=== PATIENT | female | born 1950 | race Caucasian/White ===

== ENCOUNTER 2020-06-12 14:45 | Outpatient (REF) | payer MEDICARE, SELFPAY ==
--- NOTE | 2020-06-12 15:19 | XR_ITS ---
EXAMINATION: XR CHEST CLINICAL INFORMATION: Pneumonia. COMPARISON: Chest x-ray 05/11/2020 TECHNIQUE: 2 views of the chest were obtained. FINDINGS: Lungs are clear. There is normal aeration of lungs. The infiltrate seen in the right lung on the chest x-ray 05/11/2020 has resolved. There is no new infiltrate. No pulmonary vascular congestion. There is no pleural effusion. Heart size is normal. The cardiac and mediastinal contours are normal. Orthopedic anchors present in the left humeral head. Postsurgical changes of the lower cervical spine is partially imaged. Surgical clips right upper quadrant of abdomen. IMPRESSION: Normal chest. Interval clearing of the previously seen infiltrate and the left basilar atelectasis which was present on the prior chest x-ray 05/11/2020
[2020-06-12 15:53] LABS: Estimated Average Glucose 134 mg/dL; Hemoglobin A1c % 6.3 %
[2020-06-12 16:27] LABS: SARS COV2 IgG Negative (Negative)
== END 2020-06-12 14:46 | disposition home or self-care (01) ==
LOC: HO.LAB 14:45
PROVIDERS: PCP Internal Medicine; Visit Provider Internal Medicine
DX: I10 Essential (primary) hypertension (principal); R73.01 Impaired fasting glucose; Z20.828 Contact with and (suspected) exposure to other viral communicable diseases; J18.8 Other pneumonia, unspecified organism
CPT/HCPCS: 71046; 83036; 86769

== ENCOUNTER 2020-08-27 14:13 | Outpatient (REF) | payer MEDICARE, SELFPAY ==
[2020-08-27 15:15] LABS: Glucose Urine UA NEG (NEG); Leukocyte Esterase Urine 1+ (NEG); Nitrite Urine POS (NEG); PH 5.5 (5.0-8.0); Specific Gravity - Urine 1.025 (1.005-1.025); Urine Blood NEG (NEG); Urine Ketones 5 MG/DL (NEG); Urine Protein NEG (NEG-TRACE)
[2020-08-27 15:38] LABS: Appearance Urine HAZY; Color Urine YELLOW
[2020-08-27 15:39] LABS: Bacteria Urine 3+ /LPF; Mucus Urine TRACE /LPF; RBC Urine 0 /HPF (0); Squamous Epithelial Cell Urine TRACE /LPF
== END 2020-08-27 14:14 | disposition home or self-care (01) ==
LOC: HO.LAB 14:13
PROVIDERS: Visit Provider Internal Medicine
DX: R30.0 Dysuria (principal)
CPT/HCPCS: 81001; 87086; 87088; 87186

== ENCOUNTER 2020-09-06 11:51 | Outpatient (REF) | payer MEDICARE, SELFPAY ==
[2020-09-06 13:25] LABS: Anion Gap 13 (12-20); Blood Urea Nitrogen 15 mg/dL (9-16); Calcium 9.8 mg/dL (8.4-10.2); Carbon Dioxide 24 mmol/L (22-29); Chloride 107 mmol/L (96-108); Estimated Average Glucose 134 mg/dL; Estimated Glomerular Filt Rate > 60; Glucose Random 97 mg/dL (60-115); Hemoglobin A1c % 6.3 %; Potassium 4.1 mmol/l (3.3-5.1); Sodium 140 mmol/L (135-145)
== END 2020-09-06 11:52 | disposition home or self-care (01) ==
LOC: HO.LAB 11:51
PROVIDERS: PCP Internal Medicine; Visit Provider Internal Medicine
DX: R73.01 Impaired fasting glucose (principal); I10 Essential (primary) hypertension
CPT/HCPCS: 36415; 80048; 83036

== ENCOUNTER → 2020-10-09 15:04 | Outpatient (BNVA) | payer MEDICARE, SELFPAY | PROVIDERS: PCP Internal Medicine; Referring Provider Internal Medicine; Visit Provider Internal Medicine Endocrinology, Diabetes & Metabolism | DX: E21.0 Primary hyperparathyroidism (principal); M81.8 Other osteoporosis without current pathological fracture | CPT/HCPCS: 99212 ==

== ENCOUNTER 2020-10-11 13:42 | Outpatient (REF) | payer MEDICARE, SELFPAY ==
[2020-10-11 14:43] LABS: Alanine Aminotransferase 22 U/L (0-31); Albumin Level 4.3 g/dL (3.5-5.0); Alkaline Phosphatase 169 U/L (39-117); Anion Gap 15 (12-20); Aspartate Amino Transferase 24 U/L (5-31); Bilirubin Total 1.3 mg/dL (0.0-1.0); Blood Urea Nitrogen 17 mg/dL (9-16); Calcium 9.2 mg/dL (8.4-10.2); Carbon Dioxide 24 mmol/L (22-29); Chloride 108 mmol/L (96-108); Estimated Glomerular Filt Rate > 60; Glucose Random 111 mg/dL (60-115); Magnesium 2.1 mg/dL (1.6-2.6); Phosphorus 3.2 mg/dL (2.7-4.5); Potassium 4.5 mmol/L (3.3-5.1); Sodium 142 mmol/L (135-145); Total Protein 6.6 g/dL (6.5-8.0)
[2020-10-11 15:04] LABS: Vitamin D 25-OH Total 36.8 ng/mL (>30)
[2020-10-12 11:47] LABS: Calcium (PTHI) 9.6 mg/dL (8.6-10.4); PTHI 37 pg/mL (14-64)
[2020-10-16 12:22] LABS: Alkaline Phosphatase Bone 55.5 mcg/L (5.6-29.0)
[2020-10-19 11:46] LABS: VITAMIN D (1,25 OH) D3 61 pg/mL; Vit D (1,25-Dihydroxy) Total 61 pg/mL (18-72); Vitamin D (1,25 OH) D2 <8 pg/mL
== END 2020-10-11 13:43 | disposition home or self-care (01) ==
LOC: HO.LAB 13:42
PROVIDERS: Visit Provider Internal Medicine Endocrinology, Diabetes & Metabolism
DX: E21.0 Primary hyperparathyroidism (principal)
CPT/HCPCS: 36415; 80053; 82306; 82652; 83735; 83970; 84075; 84100

== ENCOUNTER 2020-10-23 13:30 | Outpatient (REF) | payer MEDICARE, SELFPAY ==
--- NOTE | ~2020-10-23 | XR_ITS ---
EXAMINATION: XR CHEST CLINICAL INFORMATION: Persistent cough COMPARISON: Chest radiographs 06/12/2020, 05/11/2020 TECHNIQUE: 2 views of the chest were obtained. FINDINGS: There is no airspace consolidation or definite groundglass opacity. The costophrenic sulci are clear. The heart is normal in size. The hilar and mediastinal contours are unremarkable. No acute bony abnormality. There is orthopedic hardware cervical spine and left shoulder. Surgical clips seen based left neck and right upper quadrant abdomen. XR/XR chest 2V IMPRESSION: Unremarkable examination.
== END 2020-10-23 13:31 | disposition home or self-care (01) ==
LOC: HO.XRAY 13:30
PROVIDERS: PCP Internal Medicine; Visit Provider Internal Medicine
DX: R05 Cough (principal)
CPT/HCPCS: 71046

== ENCOUNTER 2020-10-31 14:43 | Inpatient (IN) | payer MEDICARE, SELFPAY ==
--- NOTE | ~2020-10-31 | XR_ITS ---
EXAMINATION: XR CHEST CLINICAL INFORMATION: Chest pain, COVID+ COMPARISON: Chest radiographs 10/23/2020, 06/12/2020 TECHNIQUE: Portable upright AP view of the chest was obtained. FINDINGS: There is subtle coarsening of the bronchiolar markings and some faint scattered groundglass opacities mid and lower zones, greater on right. Findings are consistent with the clinical history. There is no pneumothorax or pneumomediastinum. No confluent airspace solid lesion. The costophrenic sulci are clear. The heart is normal in size. The hilar and mediastinal contours are normal. There are orthopedic anchors overlying the left shoulder. XR/XR chest 1V IMPRESSION: 1. Subtle scattered airspace opacities and mild coarsening bronchiolar markings consistent with the clinical history. 2. No confluent airspace consolidation or effusion. No pneumothorax.
--- NOTE | ~2020-10-31 | US_ITS ---
EXAMINATION: US VENOUS ULTRASOUND WITH DOPPLER LOWER EXTREMITY, BILATERAL CLINICAL INFORMATION: Bilateral leg pain. COMPARISON: None TECHNIQUE: Ultrasound of the deep veins is performed from the hip to the calf with compression sonography and color and pulse Doppler assessment. Spectral analysis with color-flow imaging is performed. FINDINGS: RIGHT: There is normal venous compression and respiratory variation and augmented flow. The visualized common femoral vein, superficial femoral vein, profunda femoral vein, popliteal vein, and the trifurcation region shows no evidence of deep venous thrombosis. There is no significant popliteal fossa cyst. LEFT: There is normal venous compression and respiratory variation and augmented flow. The visualized common femoral vein, superficial femoral vein, profunda femoral vein, popliteal vein, and the trifurcation region shows no evidence of deep venous thrombosis. There is no significant popliteal fossa cyst. There is small amount of fluid collection in the left popliteal fossa measuring 3.6 x 1.2 x 3.4 cm. If the patient's symptoms persist, followup ultrasound in 5 days 7 days might be of value to exclude proximal propagation from a non-visualized calf vein. US/US venous duplex LE BI IMPRESSION: No DVT demonstrated in bilateral lower extremity. There is a small popliteal fossa cyst with a maximum measurement of 3.6 cm.
--- NOTE | ~2020-10-31 | CT_ITS ---
EXAMINATION: CT ANGIOGRAM OF THE CHEST WITH AND WITHOUT CONTRAST (CT PULMONARY ANGIOGRAM FOR PE) CLINICAL INFORMATION: Reason for Exam COVID positive. Elevated D-dimer. History DVTs COMPARISON: None TECHNIQUE: Prior to contrast administration, noncontrast localization images were obtained. Subsequently, multidetector volumetric imaging was performed from the thoracic inlet to below the diaphragms following the administration of 58 mL Omnipaque 350 intravenous contrast. No contrast reaction reported Sagittal, coronal, and MIP oblique sagittal reformatted images were obtained on the CT workstation, uploaded to PACS, and reviewed. This CT examination was performed using dose optimization techniques as appropriate, variously including the following: *Automated exposure control *Adjustment of mA and/or kV according to patient size (this includes techniques or standardized protocols for targeted exams where dose is matched to indication/reason for exam; i.e. extremities or head) *Use of iterative reconstruction technique Total exam dose-length product 271 mGy-cm FINDINGS: QUALITY OF STUDY/CONTRAST BOLUS: Satisfactory. PULMONARY ARTERIES: No central or segmental pulmonary emboli. THORACIC AORTA: No aneurysm or dissection. 4 vessel branching pattern of the great vessels is seen with separate origin of the left vertebral artery from the arch. LUNG: Multifocal groundglass infiltrates are seen throughout all lobes of the lung compatible with Covid 19 pulmonary disease. PLEURA: No pleural effusion or pneumothorax. MEDIASTINUM: Normal heart size. No pericardial effusion. No hilar or mediastinal lymphadenopathy. No evidence of septal bowing or right heart strain. CHEST WALL/AXILLA: No axillary or internal mammary lymphadenopathy. A 6 mm small hypodensity mass is seen in the left breast's. The breasts appear to have no significant solid tissue. OSSEOUS STRUCTURES: No acute or suspicious osseous abnormality. UPPER ABDOMEN: There has been prior gastric surgery. Patient status post cholecystectomy. No reflux of contrast into the hepatic veins to suggest elevated right heart pressures. CT/CT angio chest PE protocol IMPRESSION: No evidence of pulmonary emboli. Multifocal pulmonary infiltrates consistent with Covid 19. VTE: negative
[2020-10-31 14:59] VITALS: BP 137/100; BP 156/50; PULSE 71; PULSE 75; RESP 16; TEMP 36.6; O2SAT 95; BMI 28.1
--- NOTE | 2020-10-31 15:26 | ECG_ITS ---
Test Reason : CP Blood Pressure : / mmHG Vent. Rate : 073 BPM Atrial Rate : 073 BPM P-R Int : 130 ms QRS Dur : 088 ms QT Int : 390 ms P-R-T Axes : 013 002 156 degrees QTc Int : 429 ms Normal sinus rhythm Left ventricular hypertrophy with repolarization abnormality Abnormal ECG When compared with ECG of 11-MAY-2020 22:27, T wave inversion now evident in Anterior leads Referred By: Lorie Murillo Electronically Signed By:DAYANARA BOURGEOIS
--- NOTE | 2020-10-31 15:57 | ED.SOB ---
HPI - SOB/Dyspnea General Chief Complaint: Dyspnea Stated Complaint: COVID+,DIFF BREATHING Time Seen by Provider: 10/31/20 15:12 Source: patient Mode of arrival: ambulatory History of Present Illness HPI Narrative: 70-year-old female with a past medical history DVTs, gastric bypass, hyperparathyroidism s/p parathyroidectomy, iron deficiency anemia, osteoporosis, COVID-19 positive on presenting to the ED complaining of increased left-sided chest discomfort radiating under left breast to back worse with deep breathing and movement x few days. Admits to mild associated SOB, dry cough, and diarrhea. Denies fever, chills, nausea/vomiting, LE edema, recent travel, abdominal pain MD elicited complaint: pain with inspiration and chest pain Related Data Home Medications Medication Instructions Recorded Confirmed albuterol sulfate 2 puff INHALATION Q6H PRN 08/30/20 10/09/20 albuterol sulfate 3 ml INHALATION Q6H PRN 08/30/20 10/09/20 atorvastatin 1 tab PO DAILY 08/30/20 10/09/20 estradiol [Yuvafem] 1 tab VAGINAL 2XW 08/30/20 10/09/20 metformin 1 tab PO QAM 08/30/20 10/09/20 montelukast 1 tab PO BEDTIME 08/30/20 10/09/20 valsartan 1 tab PO DAILY 08/30/20 10/09/20 aspirin 81 mg tablet,delayed 81 mg PO DAILY 10/09/20 10/09/20 release blood sugar diagnostic #10 ea 10/09/20 10/09/20 calcium carbonate 600 mg calcium 600 mg PO BID 10/09/20 10/09/20 (1,500 mg) tablet enoxaparin 40 mg/0.4 mL 40 mg SUBCUT DAILY 10/09/20 10/09/20 subcutaneous syringe Previous Rx's Medication Instructions Recorded albuterol sulfate 2 puff INHALATION Q4-6H PRN #6.7 g 10/31/20 azithromycin See Rx Instructions .ROUTE 10/31/20 .COMPLEX #6 tab benzonatate [Tessalon Perles] 100 mg PO TID PRN #14 cap 10/31/20 cefpodoxime 200 mg PO BID 7 Days #14 tab 10/31/20 Allergies Allergy/AdvReac Type Severity Reaction Status Date / Time latex [LATEX] Allergy Unknown RASH Verified 10/31/20 17:31 NARCOTICS AdvReac Intermediate NAUSEA AND Uncoded 10/31/20 17:32 VOMITTING Review of Systems Review of Systems: Constitutional: No Fever, No Chills, + Fatigue,+ Malaise Cardiovascular: + Chest Pain, + SOB, No Dyspnea on Exertion, No Orthopnea, No Edema, No Palpitations Respiratory: + Cough, No Sputum, No Wheezing Gastrointestinal:+ Nausea, No Vomiting, No Diarrhea, No Constipation, No Abdominal pain Genitourinary: No Dysuria, No Urinary Frequency, No Hematuria, No Flank Pain Musculoskeletal: No joint pain, + Myalgias, No Joint Swelling Skin: No Skin Lesions, No rash Neuro: No Weakness, No Headache Yes all other systems are reviewed and are negative [facility] Past Medical History Attestation statement: The following information was validated with the patient. Medical History (Updated 10/31/20 @ 17:29 by BJORN Carter) DVT (deep venous thrombosis) Iron deficiency anemia Osteoporosis Primary hyperparathyroidism Surgical History History of partial hysterectomy History of total left hip replacement Hx of cholecystectomy Hx of gastric bypass Hx of parathyroidectomy Hx of repair of left rotator cuff Family History Family History (Updated 10/09/20 @ 15:13 by ANDREW Thornton) Father Lung cancer Mother Alzheimer's dementia Social History Social History (Updated 10/09/20 @ 15:13 by ANDREW Thornton) Smoking Status: Never smoker Advance Directives: No Advance Directives Information Provided: Yes Physical Exam Vital Signs: Vital Signs: Last Vital Signs Temp 98 F 10/31/20 14:59 Pulse 72 10/31/20 16:00 Resp 16 10/31/20 16:00 BP 133/44 L 10/31/20 16:00 Pulse Ox 95 10/31/20 16:00 Body Mass Index 28.1 Const: General: cooperative, healthy appearing and comfortable Orientation/consciousness: patient oriented x3 Limitations: no limitations HENMT: Head: Yes normal to inspection Ears: hearing grossly normal bilaterally General nose exam: Normal external nose present Face and sinus: Yes normal facial exam Eyes: General: appearance normal, both eyes and all related structures EOM: EOMs intact bilaterally Neck: Neck: Yes normal visual inspection and Yes no meningeal signs Chest: Other: Tenderness to palpation to left anterior chest wall underneath left breast/left anterior axillary line reproducing subjective complaint. No deformity Chest palpation & inspection: normal inspection of the chest, no crepitus and tenderness Resp: Effort & Inspection: normal respiratory effort Auscultation: clear to auscultation bilaterally, no rhonchi and no wheezes Cardio: Rate: regular rate Heart sounds: S1 normal heart sound present and S2 normal heart sound present GI: Inspection: Yes normal to inspection Palpation (GI): Soft to palpation, nontender, no guarding and not rigid : General: Yes no CVA tenderness Back/Spine/Pelvis: Back: no CVA tenderness Skin: Rashes: no rashes Wounds: no wounds Neuro: General: patient oriented x3, tone normal and no meningeal signs Gait exam (Neuro): Normal gait present Extrem: General: Yes normal to inspection, Yes no pedal edema and Yes no calf tenderness Course Course Course Narrative: XR chest 1V IMPRESSION: 1. Subtle scattered airspace opacities and mild coarsening bronchiolar markings consistent with the clinical history. 2. No confluent airspace consolidation or effusion. No pneumothorax. > IV ceftriaxone and azithromycin ordered -1650--D-dimer elevated to 415 >> will obtain CTA to rule out PE. LDH/CRP mildly elevated. Troponin elevated at 10.1 >> will obtain a 3 hour repeat -1800--ED care transferred to [facility] pending repeat troponin, CTA, and ambulation trial with pulse ox MDM - SOB/Dyspnea MDM Narrative Medical decision making narrative: 70-year-old female with a past medical history DVTs, gastric bypass, hyperparathyroidism s/p parathyroidectomy, iron deficiency anemia, osteoporosis, COVID-19 positive on presenting to the ED complaining of increased left-sided chest discomfort radiating under left breast to back worse with deep breathing and movement x few days. On exam VSS, NAD/well-appearing, satting 95% on RA, lungs CTA, chest pain reproducible. Concern for COVID-19 symptoms/viral syndrome vs PE vs viral pneumonia vs ACS. Lower concern for CHF/bacterial infection or severe sepsis is likely viral etiology. No concern for DVT without LE edema or calf tenderness Plan: EKG, labs, CXR, albuterol, reassess Medical Records Attestation: I reviewed the patient's medical records. Lab Data Attestation: I reviewed the patient's lab results. Result diagrams: 10/31/20 15:47 10/31/20 15:47 Labs: Lab Results 10/31/20 10/31/20 10/31/20 Range/Units 15:47 15:47 15:47 WBC 4.8 (4.8-10.8) X10*3/uL RBC 5.47 (4.20-5.50) X10*6/uL Hgb 12.5 (12.0-16.0) g/dl Hct 40.3 (37-47) % MCV 73.7 L (80-98) fL MCH 22.9 L (27.0-33.0) pg MCHC 31.0 (31.0-35.0) g/dl RDW 15.9 (11.0-16.0) % Plt Count 155 L D (160-400) X10*3/uL MPV 10.2 (9.4-12.3) fL Immature Gran % (Auto) 0.4 (0.0-0.4) % Neut % (Auto) 83.2 H (45-73) % Lymph % (Auto) 11.4 L (20-40) % [place] % (Auto) 4.6 (2-11) % Eos % (Auto) 0.2 (0-4) % Baso % (Auto) 0.2 (0-2) % Lymph # (Auto) 0.5 L (1.2-4.9) X10*3/uL [place] # (Auto) 0.2 (0.1-1.2) X10*3/uL Eos # (Auto) 0.0 (0.0-0.4) X10*3/uL Baso # (Auto) 0.0 (0.0-0.2) X10*3/uL Abs Immat Gran (auto) 0.02 (0.00-0.03) X10*3/uL Absolute Neuts (auto) 4.0 (2.0-8.3) X10*3/uL Absolute Nucleated RBC 0.000 (0.0-0.012) X10*3/uL Nucleated RBC % (auto) 0.0 (0.0-0.2) /100WBC Smear Tech's Comments VERIFIED PT 11.9 (10.8-13.0) SEC INR 1.0 (0.9-1.1) APTT 28.5 (24.1-38.0) SEC D-Dimer 415 NG/ML Sodium 134 L (135-145) mmol/L Potassium 3.9 (3.3-5.1) mmol/L Chloride 101 (96-108) mmol/L Carbon Dioxide 24 (22-29) mmol/L Anion Gap 13 (12-20) BUN 18 H (9-16) mg/dL Creatinine 0.72 (0.5-1.4) mg/dL Estim Creat Clear Calc 63.9 Estimated GFR > 60 Random Glucose 107 (60-115) mg/dL Lactic Acid (0.5-2.0) mmol/L Calcium 8.3 L D (8.4-10.2) mg/dL Magnesium 2.0 (1.6-2.6) mg/dL Ferritin 110 (10-250) ng/mL Total Bilirubin 1.3 H (0.0-1.0) mg/dL Direct Bilirubin 0.5 (0.0-0.5) mg/dL AST 27 (5-31) U/L ALT 15 (0-31) U/L Alkaline Phosphatase 159 H (39-117) U/L Lactate Dehydrogenase 294 H (122-220) U/L Troponin I High Sens (<3.5-17.0) ng/L C-Reactive Protein 6.38 H (< or = 0.50) mg/dL B-Natriuretic Peptide (<100) pg/mL Total Protein 6.5 (6.5-8.0) g/dL Albumin 4.0 (3.5-5.0) g/dL Lipase 23 (8-78) U/L Procalcitonin ng/mL 10/31/20 10/31/20 10/31/20 Range/Units 15:47 15:47 16:19 WBC (4.8-10.8) X10*3/uL RBC (4.20-5.50) X10*6/uL Hgb (12.0-16.0) g/dl Hct (37-47) % MCV (80-98) fL MCH (27.0-33.0) pg MCHC (31.0-35.0) g/dl RDW (11.0-16.0) % Plt Count (160-400) X10*3/uL MPV (9.4-12.3) fL Immature Gran % (Auto) (0.0-0.4) % Neut % (Auto) (45-73) % Lymph % (Auto) (20-40) % [place] % (Auto) (2-11) % Eos % (Auto) (0-4) % Baso % (Auto) (0-2) % Lymph # (Auto) (1.2-4.9) X10*3/uL [place] # (Auto) (0.1-1.2) X10*3/uL Eos # (Auto) (0.0-0.4) X10*3/uL Baso # (Auto) (0.0-0.2) X10*3/uL Abs Immat Gran (auto) (0.00-0.03) X10*3/uL Absolute Neuts (auto) (2.0-8.3) X10*3/uL Absolute Nucleated RBC (0.0-0.012) X10*3/uL Nucleated RBC % (auto) (0.0-0.2) /100WBC Smear Tech's Comments PT (10.8-13.0) SEC INR (0.9-1.1) APTT (24.1-38.0) SEC D-Dimer NG/ML Sodium (135-145) mmol/L Potassium (3.3-5.1) mmol/L Chloride (96-108) mmol/L Carbon Dioxide (22-29) mmol/L Anion Gap (12-20) BUN (9-16) mg/dL Creatinine (0.5-1.4) mg/dL Estim Creat Clear Calc Estimated GFR Random Glucose (60-115) mg/dL Lactic Acid 0.8 (0.5-2.0) mmol/L Calcium (8.4-10.2) mg/dL Magnesium (1.6-2.6) mg/dL Ferritin (10-250) ng/mL Total Bilirubin (0.0-1.0) mg/dL Direct Bilirubin (0.0-0.5) mg/dL AST (5-31) U/L ALT (0-31) U/L Alkaline Phosphatase (39-117) U/L Lactate Dehydrogenase (122-220) U/L Troponin I High Sens 10.1 (<3.5-17.0) ng/L C-Reactive Protein (< or = 0.50) mg/dL B-Natriuretic Peptide < 10 (<100) pg/mL Total Protein (6.5-8.0) g/dL Albumin (3.5-5.0) g/dL Lipase (8-78) U/L Procalcitonin 0.03 ng/mL ECG Data Attestation: I personally reviewed and interpreted this ECG as follows: ECG interpretation date: 10/31/20 ECG interpretation time: 14:49 Prior ECG tracings: not available for review Interpretation: EKG showing normal sinus rhythm. Rate of 73. Inverted T-waves in leads 1, aVL, V2, V3, V4, V5, and V6 Discharge Plan Discharge Clinical Impression: COVID-19 Instructions: COVID-19 (Coronavirus Disease 2019) (ED) Additional Instructions: Your COVID pneumonia. Azithromycin as an antibiotic, take as prescribed. Cefpodoxime is also on antibiotic take as prescribed. Use albuterol inhaler at home as needed for shortness of breath. Call your doctor for follow-up If her symptoms persist or worsening of constant or worsening shortness of breath or chest pain, fever unresolved medications return to the ED immediately CDC Guidelines for home isolation: - Stay away from others - WEAR A MASK if you are sick AND STAY HOME - Cover your mouth and nose with a tissue when you cough or sneeze. Dispose of tissues in a lined trash can and wash your hands immediately with soap and water for at least 20 seconds. If soap and water are not available, clean hands with alcohol-based hand nurse clinician that contains at least 60% alcohol. - Clean your hands often with soap and water for at least 20 seconds - Avoid touching your eyes, nose and mouth with unwashed hands - Do not share dishes, drinking glasses, cups, eating utensils, towels, or bedding with other people in your home. After using these items, wash them thoroughly with soap and water or put in the aviation ordnance officer. - Clean high-touch surfaces in your isolation area ( sick room and bathroom) every day; let a caregiver clean and disinfect high-touch surfaces in other areas of the home. Clean the area or item with soap and water or another detergent if it is dirty. Then, use a household disinfectant. - Limit contact with pets and animals: If you must care for a pet, wash your hands before and after interacting with them) Prescriptions: New benzonatate [Tessalon Perles] 100 mg capsule 100 mg PO TID PRN (Reason: cough) Qty: 14 RF: 0 albuterol sulfate 90 mcg/actuation HFA aerosol inhaler 2 puff inhalation Q4-6H PRN (Reason: shortness of breath or wheezing) Qty: 6.7 RF: 0 azithromycin 250 mg tablet See Rx Instructions .ROUTE .COMPLEX Qty: 6 RF: 0 cefpodoxime 200 mg tablet 200 mg PO BID 7 Days Qty: 14 RF: 0 No Action metformin 500 mg tablet 1 tab PO QAM RF: 0 albuterol sulfate 2.5 mg /3 mL (0.083 %) solution for nebulization 3 ml inhalation Q6H PRN (Reason: Wheezing) RF: 0 atorvastatin 10 mg tablet 1 tab PO DAILY RF: 0 montelukast 10 mg tablet 1 tab PO BEDTIME RF: 0 albuterol sulfate 90 mcg/actuation HFA aerosol inhaler 2 puff inhalation Q6H PRN (Reason: wheezing) RF: 0 valsartan 160 mg tablet 1 tab PO DAILY RF: 0 estradiol [Yuvafem] 10 mcg tablet 1 tab vaginal 2XW RF: 0 calcium carbonate [Calcium 600] 600 mg calcium (1,500 mg) tablet 600 mg PO BID RF: 0 (DME) OneTouch Ultra Blue Test Strip Strip See Rx Instructions ea subcut QAM Qty: 10 RF: 0 enoxaparin 40 mg/0.4 mL syringe 40 mg subcut DAILY RF: 0 aspirin [Adult Low Dose Aspirin] 81 mg tablet,delayed release (DR/EC) 81 mg PO DAILY RF: 0 Referrals: Physician,Unknown [Primary Care Provider] - 2 days (CALL)
[2020-10-31 16:00] VITALS: BP 133/44; PULSE 72; RESP 16; O2SAT 95
[2020-10-31 16:08] LABS: Basophils Percent Auto 0.2 % (0-2); Eosinophils Percent Auto 0.2 % (0-4); Hematocrit 40.3 % (37-47); Hemoglobin 12.5 g/dl (12.0-16.0); Imm Gran Abs Auto 0.02 X10*3/uL (0.00-0.03); Imm Gran Pct Auto 0.4 % (0.0-0.4); Lymphocytes Absolute Auto 0.5 X10*3/uL (1.2-4.9); Lymphocytes Percent Auto 11.4 % (20-40); MANUAL DIFF FLAG SCAN; Mean Corpuscular Hemoglobin 22.9 pg (27.0-33.0); Mean Corpuscular Volume 73.7 fL (80-98); Mean Platelet Volume 10.2 fL (9.4-12.3); Monocytes Absolute Auto 0.2 X10*3/uL (0.1-1.2); Monocytes Percent Auto 4.6 % (2-11); Neutrophils Percent Auto 83.2 % (45-73); Platelet Count 155 X10*3/uL (160-400); Red Blood Count 5.47 X10*6/uL (4.20-5.50); Red Cell Distribution Width 15.9 % (11.0-16.0); SCAN SMEAR FLAG 1; White Blood Count 4.8 X10*3/uL (4.8-10.8)
[2020-10-31 16:14] LABS: Prothrombin Time 11.9 SEC (10.8-13.0)
[2020-10-31 16:17] LABS: D Dimer 415 NG/ML; Partial Thromboplastin Time 28.5 SEC (24.1-38.0)
[2020-10-31 16:23] LABS: Alanine Aminotransferase 15 U/L (0-31); Alkaline Phosphatase 159 U/L (39-117); Anion Gap 13 (12-20); Aspartate Amino Transferase 27 U/L (5-31); Bilirubin Direct 0.5 mg/dL (0.0-0.5); Bilirubin Total 1.3 mg/dL (0.0-1.0); Blood Urea Nitrogen 18 mg/dL (9-16); C Reactive Protein 6.38 mg/dL (< or = 0.50); Calcium 8.3 mg/dL (8.4-10.2); Carbon Dioxide 24 mmol/L (22-29); Chloride 101 mmol/L (96-108); Creatinine Clr Calc Pharmacy 63.9; Estimated Glomerular Filt Rate > 60; Glucose Random 107 mg/dL (60-115); Lactate Dehydrogenase 294 U/L (122-220); Lipase 23 U/L (8-78); Potassium 3.9 mmol/L (3.3-5.1); Sodium 134 mmol/L (135-145); Total Protein 6.5 g/dL (6.5-8.0)
[2020-10-31 16:27] LABS: B Type Natriuretic Peptide < 10 pg/mL (<100); Troponin-I High Sensitivity 10.1 ng/L (<3.5-17.0)
[2020-10-31 16:28] LABS: SLIDE REVIEW VERIFIED
[2020-10-31 16:45] LABS: Procalcitonin 0.03 ng/mL
[2020-10-31 16:50] LABS: Ferritin 110 ng/mL (10-250)
[2020-10-31 16:53] LABS: Lactic Acid 0.8 mmol/L (0.5-2.0)
[2020-10-31] MEDS: cefTRIAXone sodium 1 GM in 0.9 % Sodium Chloride 50 ML IV (16:58)
[2020-10-31] MEDS: Azithromycin 500 MG in 0.9 % Sodium Chloride 250 ML 125 MG IV (17:38)
[2020-10-31] MEDS: iohexoL 350 MG/ML 100 ML INFUS..BTL IV (17:43)
[2020-10-31 17:48] VITALS: BP 150/65; PULSE 80; RESP 20; TEMP 37.4; O2SAT 94
--- NOTE | 2020-10-31 18:08 | ED.URI ---
HPI - URI/Sore Throat General Chief Complaint: Dyspnea Stated Complaint: COVID+,DIFF BREATHING Time Seen by Provider: 10/31/20 15:12 Source: patient Mode of arrival: ambulatory Related Data Home Medications Medication Instructions Recorded Confirmed albuterol sulfate 2 puff INHALATION Q6H PRN 08/30/20 10/09/20 albuterol sulfate 3 ml INHALATION Q6H PRN 08/30/20 10/09/20 atorvastatin 1 tab PO DAILY 08/30/20 10/09/20 estradiol [Yuvafem] 1 tab VAGINAL 2XW 08/30/20 10/09/20 metformin 1 tab PO QAM 08/30/20 10/09/20 montelukast 1 tab PO BEDTIME 08/30/20 10/09/20 valsartan 1 tab PO DAILY 08/30/20 10/09/20 aspirin 81 mg tablet,delayed 81 mg PO DAILY 10/09/20 10/09/20 release blood sugar diagnostic #10 ea 10/09/20 10/09/20 calcium carbonate 600 mg calcium 600 mg PO BID 10/09/20 10/09/20 (1,500 mg) tablet enoxaparin 40 mg/0.4 mL 40 mg SUBCUT DAILY 10/09/20 10/09/20 subcutaneous syringe Previous Rx's Medication Instructions Recorded albuterol sulfate 2 puff INHALATION Q4-6H PRN #6.7 g 10/31/20 azithromycin See Rx Instructions .ROUTE 10/31/20 .COMPLEX #6 tab benzonatate [Tessalon Perles] 100 mg PO TID PRN #14 cap 10/31/20 cefpodoxime 200 mg PO BID 7 Days #14 tab 10/31/20 gabapentin 100 mg PO TID #30 cap 10/31/20 valacyclovir [Valtrex] 1,000 mg PO Q8H 7 Days #21 tab 10/31/20 Allergies Allergy/AdvReac Type Severity Reaction Status Date / Time latex [LATEX] Allergy Unknown RASH Verified 10/31/20 17:31 NARCOTICS AdvReac Intermediate NAUSEA AND Uncoded 10/31/20 17:32 VOMITTING PMFSH Past Medical History Medical History (Updated 10/31/20 @ 21:49 by Kirstin Perez NP) DVT (deep venous thrombosis) Iron deficiency anemia Osteoporosis Primary hyperparathyroidism Surgical History History of partial hysterectomy History of total left hip replacement Hx of cholecystectomy Hx of gastric bypass Hx of parathyroidectomy Hx of repair of left rotator cuff Family History Family History (Updated 10/09/20 @ 15:13 by ANDREW Thornton) Father Lung cancer Mother Alzheimer's dementia Social History Social History (Updated 10/09/20 @ 15:13 by ANDREW Thornton) Smoking Status: Never smoker Advance Directives: No Advance Directives Information Provided: Yes Physical Exam Vital Signs: Vital Signs: Last Vital Signs Temp 99.3 F 10/31/20 17:48 Pulse 86 11/01/20 00:01 Resp 16 11/01/20 00:01 BP 142/58 H 11/01/20 00:01 Pulse Ox 85 L 11/01/20 00:35 Body Mass Index 28.1 Course Course Course Narrative: Please refer to prior providers note for full H&P. 6:08 p.m. CTA pending. Repeat troponins resulted at 9:45 p.m. 10.3 which is no significant difference from her 1st troponin. CTA is negative. This pain could be a herpetic pain as it follows dermatome 6 and does not cross the midline. 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 We will start antiviral for shingles. Patient verbalized understanding of and agrees to plan of care to discharge home. 11:20 p.m. verbalizing discharge instructions with the patient, it was noted that her O2 sat dropped down to 88 87% on room air. Discussion with patient regarding plan for admission, discussion with hospitalist at 11:28 p.m.. Plan is to admit for COVID-19, hypoxia, and chest pain. MDM - URI/Sore Throat Differential Diagnosis Differential diagnosis: Likely upper respiratory infection, sinusitis, viral infection, bronchitis, influenza and pharyngitis Medical Records Attestation: I reviewed the patient's medical records. Lab Data Attestation: I reviewed the patient's lab results. Result diagrams: 10/31/20 15:47 10/31/20 15:47 Labs: Lab Results 10/31/20 10/31/20 10/31/20 Range/Units 15:47 15:47 15:47 WBC 4.8 (4.8-10.8) X10*3/uL RBC 5.47 (4.20-5.50) X10*6/uL Hgb 12.5 (12.0-16.0) g/dl Hct 40.3 (37-47) % MCV 73.7 L (80-98) fL MCH 22.9 L (27.0-33.0) pg MCHC 31.0 (31.0-35.0) g/dl RDW 15.9 (11.0-16.0) % Plt Count 155 L D (160-400) X10*3/uL MPV 10.2 (9.4-12.3) fL Immature Gran % (Auto) 0.4 (0.0-0.4) % Neut % (Auto) 83.2 H (45-73) % Lymph % (Auto) 11.4 L (20-40) % Aiken % (Auto) 4.6 (2-11) % Eos % (Auto) 0.2 (0-4) % Baso % (Auto) 0.2 (0-2) % Lymph # (Auto) 0.5 L (1.2-4.9) X10*3/uL Aiken # (Auto) 0.2 (0.1-1.2) X10*3/uL Eos # (Auto) 0.0 (0.0-0.4) X10*3/uL Baso # (Auto) 0.0 (0.0-0.2) X10*3/uL Abs Immat Gran (auto) 0.02 (0.00-0.03) X10*3/uL Absolute Neuts (auto) 4.0 (2.0-8.3) X10*3/uL Absolute Nucleated RBC 0.000 (0.0-0.012) X10*3/uL Nucleated RBC % (auto) 0.0 (0.0-0.2) /100WBC Smear Tech's Comments VERIFIED PT 11.9 (10.8-13.0) SEC INR 1.0 (0.9-1.1) APTT 28.5 (24.1-38.0) SEC D-Dimer 415 NG/ML Sodium 134 L (135-145) mmol/L Potassium 3.9 (3.3-5.1) mmol/L Chloride 101 (96-108) mmol/L Carbon Dioxide 24 (22-29) mmol/L Anion Gap 13 (12-20) BUN 18 H (9-16) mg/dL Creatinine 0.72 (0.5-1.4) mg/dL Estim Creat Clear Calc 63.9 Estimated GFR > 60 Random Glucose 107 (60-115) mg/dL Lactic Acid (0.5-2.0) mmol/L Calcium 8.3 L D (8.4-10.2) mg/dL Magnesium 2.0 (1.6-2.6) mg/dL Ferritin 110 (10-250) ng/mL Total Bilirubin 1.3 H (0.0-1.0) mg/dL Direct Bilirubin 0.5 (0.0-0.5) mg/dL AST 27 (5-31) U/L ALT 15 (0-31) U/L Alkaline Phosphatase 159 H (39-117) U/L Lactate Dehydrogenase 294 H (122-220) U/L Troponin I High Sens (<3.5-17.0) ng/L C-Reactive Protein 6.38 H (< or = 0.50) mg/dL B-Natriuretic Peptide (<100) pg/mL Total Protein 6.5 (6.5-8.0) g/dL Albumin 4.0 (3.5-5.0) g/dL Lipase 23 (8-78) U/L Procalcitonin ng/mL COVID-19 (CORINNE) (Negative) COVID-19 Clin Com 10/31/20 10/31/20 10/31/20 Range/Units 15:47 15:47 16:19 WBC (4.8-10.8) X10*3/uL RBC (4.20-5.50) X10*6/uL Hgb (12.0-16.0) g/dl Hct (37-47) % MCV (80-98) fL MCH (27.0-33.0) pg MCHC (31.0-35.0) g/dl RDW (11.0-16.0) % Plt Count (160-400) X10*3/uL MPV (9.4-12.3) fL Immature Gran % (Auto) (0.0-0.4) % Neut % (Auto) (45-73) % Lymph % (Auto) (20-40) % Aiken % (Auto) (2-11) % Eos % (Auto) (0-4) % Baso % (Auto) (0-2) % Lymph # (Auto) (1.2-4.9) X10*3/uL Aiken # (Auto) (0.1-1.2) X10*3/uL Eos # (Auto) (0.0-0.4) X10*3/uL Baso # (Auto) (0.0-0.2) X10*3/uL Abs Immat Gran (auto) (0.00-0.03) X10*3/uL Absolute Neuts (auto) (2.0-8.3) X10*3/uL Absolute Nucleated RBC (0.0-0.012) X10*3/uL Nucleated RBC % (auto) (0.0-0.2) /100WBC Smear Tech's Comments PT (10.8-13.0) SEC INR (0.9-1.1) APTT (24.1-38.0) SEC D-Dimer NG/ML Sodium (135-145) mmol/L Potassium (3.3-5.1) mmol/L Chloride (96-108) mmol/L Carbon Dioxide (22-29) mmol/L Anion Gap (12-20) BUN (9-16) mg/dL Creatinine (0.5-1.4) mg/dL Estim Creat Clear Calc Estimated GFR Random Glucose (60-115) mg/dL Lactic Acid 0.8 (0.5-2.0) mmol/L Calcium (8.4-10.2) mg/dL Magnesium (1.6-2.6) mg/dL Ferritin (10-250) ng/mL Total Bilirubin (0.0-1.0) mg/dL Direct Bilirubin (0.0-0.5) mg/dL AST (5-31) U/L ALT (0-31) U/L Alkaline Phosphatase (39-117) U/L Lactate Dehydrogenase (122-220) U/L Troponin I High Sens 10.1 (<3.5-17.0) ng/L C-Reactive Protein (< or = 0.50) mg/dL B-Natriuretic Peptide < 10 (<100) pg/mL Total Protein (6.5-8.0) g/dL Albumin (3.5-5.0) g/dL Lipase (8-78) U/L Procalcitonin 0.03 ng/mL COVID-19 (CORINNE) (Negative) COVID-19 Clin Com 10/31/20 11/01/20 Range/Units 20:27 00:28 WBC (4.8-10.8) X10*3/uL RBC (4.20-5.50) X10*6/uL Hgb (12.0-16.0) g/dl Hct (37-47) % MCV (80-98) fL MCH (27.0-33.0) pg MCHC (31.0-35.0) g/dl RDW (11.0-16.0) % Plt Count (160-400) X10*3/uL MPV (9.4-12.3) fL Immature Gran % (Auto) (0.0-0.4) % Neut % (Auto) (45-73) % Lymph % (Auto) (20-40) % Aiken % (Auto) (2-11) % Eos % (Auto) (0-4) % Baso % (Auto) (0-2) % Lymph # (Auto) (1.2-4.9) X10*3/uL Aiken # (Auto) (0.1-1.2) X10*3/uL Eos # (Auto) (0.0-0.4) X10*3/uL Baso # (Auto) (0.0-0.2) X10*3/uL Abs Immat Gran (auto) (0.00-0.03) X10*3/uL Absolute Neuts (auto) (2.0-8.3) X10*3/uL Absolute Nucleated RBC (0.0-0.012) X10*3/uL Nucleated RBC % (auto) (0.0-0.2) /100WBC Smear Tech's Comments PT (10.8-13.0) SEC INR (0.9-1.1) APTT (24.1-38.0) SEC D-Dimer NG/ML Sodium (135-145) mmol/L Potassium (3.3-5.1) mmol/L Chloride (96-108) mmol/L Carbon Dioxide (22-29) mmol/L Anion Gap (12-20) BUN (9-16) mg/dL Creatinine (0.5-1.4) mg/dL Estim Creat Clear Calc Estimated GFR Random Glucose (60-115) mg/dL Lactic Acid (0.5-2.0) mmol/L Calcium (8.4-10.2) mg/dL Magnesium (1.6-2.6) mg/dL Ferritin (10-250) ng/mL Total Bilirubin (0.0-1.0) mg/dL Direct Bilirubin (0.0-0.5) mg/dL AST (5-31) U/L ALT (0-31) U/L Alkaline Phosphatase (39-117) U/L Lactate Dehydrogenase (122-220) U/L Troponin I High Sens 10.3 (<3.5-17.0) ng/L C-Reactive Protein (< or = 0.50) mg/dL B-Natriuretic Peptide (<100) pg/mL Total Protein (6.5-8.0) g/dL Albumin (3.5-5.0) g/dL Lipase (8-78) U/L Procalcitonin ng/mL COVID-19 (CORINNE) Positive A (Negative) COVID-19 Clin Com See Note Imaging Data CTA PE: Attestation: I personally reviewed and interpreted this imaging study as follows: Radiologist's impression: EXAMINATION: CT ANGIOGRAM OF THE CHEST WITH AND WITHOUT CONTRAST (CT PULMONARY ANGIOGRAM FOR PE) CLINICAL INFORMATION: Reason for Exam COVID positive. Elevated D-dimer. History DVTs COMPARISON: None TECHNIQUE: Prior to contrast administration, noncontrast localization images were obtained. Subsequently, multidetector volumetric imaging was performed from the thoracic inlet to below the diaphragms following the administration of 58 mL Omnipaque 350 intravenous contrast. No contrast reaction reported Sagittal, coronal, and MIP oblique sagittal reformatted images were obtained on the CT workstation, uploaded to PACS, and reviewed. This CT examination was performed using dose optimization techniques as appropriate, variously including the following: *Automated exposure control *Adjustment of mA and/or kV according to patient size (this includes techniques or standardized protocols for targeted exams where dose is matched to indication/reason for exam; i.e. extremities or head) *Use of iterative reconstruction technique Total exam dose-length product 271 mGy-cm FINDINGS: QUALITY OF STUDY/CONTRAST BOLUS: Satisfactory. PULMONARY ARTERIES: No central or segmental pulmonary emboli. THORACIC AORTA: No aneurysm or dissection. 4 vessel branching pattern of the great vessels is seen with separate origin of the left vertebral artery from the arch. LUNG: Multifocal groundglass infiltrates are seen throughout all lobes of the lung compatible with Covid 19 pulmonary disease. PLEURA: No pleural effusion or pneumothorax. MEDIASTINUM: Normal heart size. No pericardial effusion. No hilar or mediastinal lymphadenopathy. No evidence of septal bowing or right heart strain. CHEST WALL/AXILLA: No axillary or internal mammary lymphadenopathy. A 6 mm small hypodensity mass is seen in the left breast's. The breasts appear to have no significant solid tissue. OSSEOUS STRUCTURES: No acute or suspicious osseous abnormality. UPPER ABDOMEN: There has been prior gastric surgery. Patient status post cholecystectomy. No reflux of contrast into the hepatic veins to suggest elevated right heart pressures. CT/CT angio chest PE protocol IMPRESSION: No evidence of pulmonary emboli. Multifocal pulmonary infiltrates consistent with Covid 19. VTE: negative Critical Care Time Critical Care Time Critical Care Time: Yes Total Critical Care Time: 45 Attestation: I have personally provided critical care time exclusive of time spent on separately billable procedures. Time includes review of laboratory data, radiology results, discussion with consultants, and monitoring for potential decompensation. Interventions were performed as documented. Discharge Plan Discharge Clinical Impression: COVID-19 Shingles Qualifiers: Herpes zoster complications: without complications Qualified Code(s): B02.9 - Zoster without complications Patient Disposition: Admitted As Inpatient Additional Instructions: Your COVID pneumonia. Azithromycin as an antibiotic, take as prescribed. Cefpodoxime is also on antibiotic take as prescribed. Use albuterol inhaler at home as needed for shortness of breath. Call your doctor for follow-up If her symptoms persist or worsening of constant or worsening shortness of breath or chest pain, fever unresolved medications return to the ED immediately CDC Guidelines for home isolation: - Stay away from others - WEAR A MASK if you are sick AND STAY HOME - Cover your mouth and nose with a tissue when you cough or sneeze. Dispose of tissues in a lined trash can and wash your hands immediately with soap and water for at least 20 seconds. If soap and water are not available, clean hands with alcohol-based hand wrap knitting machine operator that contains at least 60% alcohol. - Clean your hands often with soap and water for at least 20 seconds - Avoid touching your eyes, nose and mouth with unwashed hands - Do not share dishes, drinking glasses, cups, eating utensils, towels, or bedding with other people in your home. After using these items, wash them thoroughly with soap and water or put in the aviation safety inspector. - Clean high-touch surfaces in your isolation area ( sick room and bathroom) every day; let a caregiver clean and disinfect high-touch surfaces in other areas of the home. Clean the area or item with soap and water or another detergent if it is dirty. Then, use a household disinfectant. - Limit contact with pets and animals: If you must care for a pet, wash your hands before and after interacting with them)
[2020-10-31] MEDS: Albuterol Sulfate 90 MCG 8 GM INHALER 4 PUFF INHALE (19:00)
[2020-10-31 20:44] VITALS: BP 111/50; PULSE 78; RESP 18; O2SAT 95
--- NOTE | 2020-10-31 20:46 | PC.NURSE ---
AMBULATORY PULSE OX STEADY AT 94% ON ROOM AIR.
[2020-10-31 20:59] LABS: Troponin-I High Sensitivity 10.3 ng/L (<3.5-17.0)
--- NOTE | 2020-10-31 23:25 | PC.NURSE ---
PA IN ROOM FOR RE-EVAL AND DECIDED TO ADMIT PT
[2020-10-31] MEDS: dexAMETHasone sod phosphate 4 MG/ML VIAL 6 MG IVPUSH (23:49)
--- NOTE | 2020-10-31 23:56 | P.HPHOSP_ITS ---
History of Present Illness Date of Service: 10/31/20 Chief Complaint: Chest pain 70-year-old female with a past history of, diabetes osteoporosis, primary hyperparathyroidism, history of left leg DVT currently on anticoagulation, anemia presented to the hospital a chief complaint of chest pain. Mention that this pain is located on left side of chest below the breast about a week denies any shortness of breath. Denies any fever chills cough. Denies any numbness tingling. Denies any nausea vomiting diarrhea. Chest pain is nonradiating, no associated lightheadedness dizziness or sweating. Review of all other systems is negative except mentioned above ER course: Per ER team, patient EKG was nonischemic, troponins x2 negative, CT angio of the chest negative for any pulmonary embolism. COVID-[address] showed bilateral pulmonary infiltrates consistent with COVID-19 pneumonia. Patient was saturating at 88% on room air. Subsequently placed on 2 L of supplemental oxygen. Given ceftriaxone and azithromycin and dexamethasone. Admitted to the hospital for further management [facility] Medical History DVT (deep venous thrombosis) Iron deficiency anemia Osteoporosis Primary hyperparathyroidism Family History Father Lung cancer Mother Alzheimer's dementia Surgical History History of partial hysterectomy History of total left hip replacement Hx of cholecystectomy Hx of gastric bypass Hx of parathyroidectomy Hx of repair of left rotator cuff Social History (Updated 10/09/20 @ 15:13 by ANDREW Thornton) Household Members: Significant Other Housing: Condominium Do you presently have visiting nurse or other home services: No Smoking Status: Never smoker Use of substances other than those prescribed or required for medical reasons: No Currently Displaying Signs/Symptoms of Drug Intoxication Withdrawal: No Have you been hit, kicked, punched, or otherwise hurt by someone within the past year? If so, by whom?: No Do you feel safe in your current relationship?: No Is there a partner from a previous relationship who is making you feel unsafe now?: No Are you made to feel afraid or neglected: No Advance Directives: No (Health care proxy Leelee Bhardwaj) Advance Directives Information Provided: Yes Do you have thoughts of harming others: None Do you have a plan to hurt others: No Plan Recently lost weight without trying: Yes service: No Current occupational status: retired Meds Allergies Allergy/AdvReac Type Severity Reaction Status Date / Time latex [LATEX] Allergy Unknown RASH Verified 10/31/20 17:31 NARCOTICS AdvReac Intermediate NAUSEA AND Uncoded 10/31/20 17:32 VOMITTING Active Medications: Current Medications Generic Name Dose Route Start Last Admin Trade Name Freandrea PRN Reason Stop Dose Admin Acetaminophen 650 mg 10/31/20 23:46 Acetaminophen 325 Mg Tablet PO Q6H PRN Pain, Mild (Pain Scale 1-3) Azithromycin 500 mg 10/31/20 23:45 Azithromycin 500 Mg Tablet PO Q24H [facility] Dexamethasone 6 mg 11/01/20 09:00 Dexamethasone 6 Mg Tablet PO DAILY [facility] Enoxaparin Sodium 40 mg 10/31/20 23:45 Enoxaparin Sodium 40 Mg/0.4 Ml Syringe SUBCUT Q24H [facility] Famotidine 20 mg 11/01/20 09:00 Famotidine 20 Mg Tablet PO DAILY [facility] Ceftriaxone Sodium 1 gm/ 50 mls @ 100 mls/hr 10/31/20 23:45 Sodium Chloride IV Q24H [facility] Insulin Human Lispro 0 unit 11/01/20 07:30 Insulin Lispro 100 Unit/Ml 3 Ml Vial SUBCUT QIDACHS [facility] Protocol Pharmacy Consult 1 each 10/31/20 23:27 Consult Rx Perform Med Rec MISCELLANE ONCE PRN Consult order Sodium Chloride 3 ml 11/01/20 00:00 0.9 % Sodium Chloride Flush 3 Ml Syringe IVFLUSH QSHIFT [facility] Home Medications Medication Instructions Recorded Confirmed Last Taken Type albuterol sulfate 2 puff INHALATION Q6H PRN 08/30/20 11/01/20 Unknown History atorvastatin 10 mg PO DAILY 08/30/20 11/01/20 10/31/20 History estradiol [Yuvafem] 1 tab VAGINAL 2XW 08/30/20 11/01/20 Unknown History montelukast 10 mg PO BEDTIME 08/30/20 11/01/20 10/31/20 History valsartan 160 mg PO DAILY 08/30/20 11/01/20 10/31/20 History aspirin 81 mg tablet,delayed 81 mg PO DAILY 0211/01/20 10/31/20 History release blood sugar diagnostic #10 ea 10/09/20 10/09/20 Unknown History calcium carbonate 600 mg calcium 1,200 mg PO DAILY 10/09/20 11/01/20 10/31/20 History (1,500 mg) tablet Physical Exam Vital Signs and Narrative: Vital Signs: Last Vital Signs Temp 99.3 F 10/31/20 17:48 Pulse 78 10/31/20 20:44 Resp 18 10/31/20 20:44 BP 111/50 L 10/31/20 20:44 Pulse Ox 95 10/31/20 20:44 Body Mass Index 28.1 Gen: Appears be in no acute distress HEENT: NCAT, Moist mucosa. Pulmonary: Vesicular breath sounds, fair air entry CVS: Normal S1-S2 Abdomen: BS+, Soft, Nontender Extremities: Warm well perfused Neuro: Alert and awake. Results Labs CBC and Chem 7: 11/02/20 05:25 11/02/20 05:25 Labs: Laboratory Results - last 24 hr 10/31/20 10/31/20 10/31/20 15:47 15:47 15:47 MCV 73.7 L MCH 22.9 L MCHC 31.0 RDW 15.9 Plt Count 155 L D MPV 10.2 Immature Gran % (Auto) 0.4 Neut % (Auto) 83.2 H Lymph % (Auto) 11.4 L Weston % (Auto) 4.6 Eos % (Auto) 0.2 Baso % (Auto) 0.2 Lymph # (Auto) 0.5 L Weston # (Auto) 0.2 Eos # (Auto) 0.0 Baso # (Auto) 0.0 Abs Immat Gran (auto) 0.02 Absolute Neuts (auto) 4.0 Absolute Nucleated RBC 0.000 Nucleated RBC % (auto) 0.0 Smear Tech's Comments VERIFIED PT 11.9 INR 1.0 APTT 28.5 D-Dimer 415 Anion Gap 13 Estim Creat Clear Calc 63.9 Estimated GFR > 60 Random Glucose 107 Lactic Acid Calcium 8.3 L D Magnesium 2.0 Ferritin 110 Total Bilirubin 1.3 H Direct Bilirubin 0.5 AST 27 ALT 15 Alkaline Phosphatase 159 H Lactate Dehydrogenase 294 H Troponin I High Sens C-Reactive Protein 6.38 H B-Natriuretic Peptide Total Protein 6.5 Albumin 4.0 Lipase 23 Procalcitonin 10/31/20 10/31/20 10/31/20 15:47 15:47 16:19 MCV MCH MCHC RDW Plt Count MPV Immature Gran % (Auto) Neut % (Auto) Lymph % (Auto) Weston % (Auto) Eos % (Auto) Baso % (Auto) Lymph # (Auto) Weston # (Auto) Eos # (Auto) Baso # (Auto) Abs Immat Gran (auto) Absolute Neuts (auto) Absolute Nucleated RBC Nucleated RBC % (auto) Smear Tech's Comments PT INR APTT D-Dimer Anion Gap Estim Creat Clear Calc Estimated GFR Random Glucose Lactic Acid 0.8 Calcium Magnesium Ferritin Total Bilirubin Direct Bilirubin AST ALT Alkaline Phosphatase Lactate Dehydrogenase Troponin I High Sens 10.1 C-Reactive Protein B-Natriuretic Peptide < 10 Total Protein Albumin Lipase Procalcitonin 0.03 10/31/20 20:27 MCV MCH MCHC RDW Plt Count MPV Immature Gran % (Auto) Neut % (Auto) Lymph % (Auto) Weston % (Auto) Eos % (Auto) Baso % (Auto) Lymph # (Auto) Weston # (Auto) Eos # (Auto) Baso # (Auto) Abs Immat Gran (auto) Absolute Neuts (auto) Absolute Nucleated RBC Nucleated RBC % (auto) Smear Tech's Comments PT INR APTT D-Dimer Anion Gap Estim Creat Clear Calc Estimated GFR Random Glucose Lactic Acid Calcium Magnesium Ferritin Total Bilirubin Direct Bilirubin AST ALT Alkaline Phosphatase Lactate Dehydrogenase Troponin I High Sens 10.3 C-Reactive Protein B-Natriuretic Peptide Total Protein Albumin Lipase Procalcitonin Imaging Radiologist's Impressions: Impressions Chest X-Ray 10/31/20 15:26 IMPRESSION: 1. Subtle scattered airspace opacities and mild coarsening bronchiolar markings consistent with the clinical history. 2. No confluent airspace consolidation or effusion. No pneumothorax. Chest CTA 10/31/20 16:53 IMPRESSION: No evidence of pulmonary emboli. Multifocal pulmonary infiltrates consistent with Covid 19. VTE: negative Assessment and Plan (1) COVID-19: Status: Acute 70F with hx HTN, HLD, DM, Anemia, hx DVT- currently not on Anticoa gulation, hypothyroid p/w Chest pain. Chest Pain: Atypical ; Troponins x2 negative. Acute Hypoxia: In the Setting of COVID PNA; Supplemental Oxygen via NC; pt not in distress. COVID PNA: c/w Ceftriaxone,Azithromycin, Dexamethasone. ID consult Breast nodule: Incidental finding on the CT chest. Patient recommended follow- up with the PCP for outpatient breast ultrasound. Patient mentioned that she had a recent mammogram which was negative. DM: ISS HTN/HLD: c/w Home meds; pending med rec Hx DVT: currently not on Anticoagulation; Repeat venous Duplex. DVTppx: Lovenox Code status: Full code.
[2020-11-01] VITALS (9 sets, daily range): BP systolic 121–152; BP diastolic 58–70; PULSE 58–86; RESP 16–20; TEMP 36.1–36.8; O2SAT 85–96
[2020-11-01 00:40] LABS: IDNOW Serial# 9DD0AD1C
[2020-11-01 00:44] LABS: COVID-19 Test Positive (Negative)
[2020-11-01] MEDS: 0.9 % Sodium Chloride Flush 3 ML SYRINGE IVFLUSH ×4 (01:59→20:40)
--- NOTE | 2020-11-01 04:07 | PC.NURSE ---
REPORT GIVEN TO FLOOR. PT ABLE TO GO UP AT THIS TIME. PT LEFT ED IN NAD.
[2020-11-01 06:29] LABS: Glucose Urine UA NEG (NEG); Leukocyte Esterase Urine 2+ (NEG); Nitrite Urine NEG (NEG); Urine Blood 2+ (NEG); Urine Ketones 5 MG/DL (NEG); Urine Protein TRACE MG/DL (NEG-TRACE)
[2020-11-01 06:33] LABS: Appearance Urine CLOUDY; Color Urine YELLOW
[2020-11-01 06:39] LABS: Bacteria Urine TRACE /LPF; Squamous Epithelial Cell Urine TRACE /LPF; WBC Urine 50-75 /HPF (0-4)
[2020-11-01 06:51] LABS: Hematocrit 36.4 % (37-47); Hemoglobin 11.2 g/dl (12.0-16.0); Imm Gran Abs Auto 0.02 X10*3/uL (0.00-0.03); Imm Gran Pct Auto 0.4 % (0.0-0.4); Lymphocytes Absolute Auto 0.3 X10*3/uL (1.2-4.9); Lymphocytes Percent Auto 7.3 % (20-40); MANUAL DIFF FLAG SCAN; Mean Corpuscular HGB Conc 30.8 g/dl (31.0-35.0); Mean Corpuscular Hemoglobin 22.8 pg (27.0-33.0); Mean Platelet Volume 10.5 fL (9.4-12.3); Monocytes Absolute Auto 0.1 X10*3/uL (0.1-1.2); Monocytes Percent Auto 1.5 % (2-11); Neutrophils Absolute Auto 4.2 X10*3/uL (2.0-8.3); Neutrophils Percent Auto 90.8 % (45-73); Platelet Count 155 X10*3/uL (160-400); Red Blood Count 4.92 X10*6/uL (4.20-5.50); Red Cell Distribution Width 15.9 % (11.0-16.0); SCAN SMEAR FLAG 1; White Blood Count 4.6 X10*3/uL (4.8-10.8)
[2020-11-01 07:18] LABS: Blood Urea Nitrogen 15 mg/dL (9-16); Creatinine Clr Calc Pharmacy 62.1; Estimated Glomerular Filt Rate > 60; Glucose Random 217 mg/dL (60-115)
[2020-11-01 07:33] LABS: SLIDE REVIEW VERIFIED
[2020-11-01 08:07] LABS: Anion Gap 16 (12-20); Carbon Dioxide 20 mmol/L (22-29); Chloride 105 mmol/L (96-108); Sodium 137 mmol/L (135-145)
[2020-11-01 08:08] LABS: Glucose, Whole Blood 212 mg/dL (60-115)
--- NOTE | 2020-11-01 08:41 | MHC.CM.PN ---
CM spoke with Patient, who is on the Covid Unit, over the phone at room Ext. [phone] and addressed IMM with her (providing Patient with original and a copy has been placed on the chart). Patient lives alone in a condo and she is functionally independent. The goal for dc is home/no services and CM has initiated and will follow for dc planning. Patient's Daughter/Leelee & Son/Jalen are the HCP and PCP is DR. Erlin Fragoso.
[2020-11-01] MEDS: Atorvastatin Calcium 10 MG TABLET PO (09:01)
[2020-11-01] MEDS: Valsartan 160 MG TABLET PO (09:01)
[2020-11-01] MEDS: dexAMETHasone 6 MG TABLET PO (09:01)
[2020-11-01] MEDS: Insulin Lispro 100 UNIT/ML 3 ML VIAL SUBCUT ×4 (09:01→20:40)
[2020-11-01] MEDS: Aspirin Enteric Coated 81 MG TABLET.DR PO (09:01)
[2020-11-01] MEDS: Famotidine 20 MG TABLET PO (09:01)
--- NOTE | 2020-11-01 11:18 | P.PNIM_ITS ---
Subjective Subjective Date of Service: 11/01/20 Interval History: Shortness of breath Cardiovascular Cardiovascular: Reports no additional cardiovascular complaints Gastrointestinal Gastrointestinal: Reports no additional gastrointestinal complaints Physical Exam Vital Signs: Vital Signs: Last Vital Signs Temp 98.1 F 11/01/20 07:41 Pulse 62 11/01/20 09:01 Resp 20 11/01/20 07:41 BP 121/64 11/01/20 09:01 Pulse Ox 96 11/01/20 07:41 Body Mass Index 28.1 General: AO X 3, no acute distress Resp: diminished, tender over left chest CVS: S1,S2,RRR GI: soft, non tender, non distended Neuro: motor grossly intact Psych: appropriate affect Objective Data Current Medications Generic Name Dose Route Start Last Admin Trade Name Freq PRN Reason Stop Dose Admin Acetaminophen 650 mg 10/31/20 23:46 Acetaminophen 325 Mg Tablet PO Q6H PRN Pain, Mild (Pain Scale 1-3) Aspirin 81 mg 11/01/20 09:00 11/01/20 09:01 Aspirin Enteric Coated 81 Mg Tablet. PO 81 mg DAILY [facility] Administration Atorvastatin Calcium 10 mg 11/01/20 09:00 11/01/20 09:01 Atorvastatin Calcium 10 Mg Tablet PO 10 mg DAILY [facility] Administration Calcium Carbonate 1,000 mg 11/01/20 09:00 11/01/20 09:01 Calcium Carbonate 500 Mg Tablet PO 1,000 mg DAILY [facility] Administration Dexamethasone 6 mg 11/01/20 09:00 11/01/20 09:01 Dexamethasone 6 Mg Tablet PO 6 mg DAILY [facility] Administration Enoxaparin Sodium 40 mg 11/01/20 00:00 11/01/20 03:43 Enoxaparin Sodium 40 Mg/0.4 Ml Syringe SUBCUT Not Given Q24H [facility] Famotidine 20 mg 11/01/20 09:00 11/01/20 09:01 Famotidine 20 Mg Tablet PO 20 mg DAILY [facility] Administration Insulin Human Lispro 0 unit 11/01/20 07:30 11/01/20 09:01 Insulin Lispro 100 Unit/Ml 3 Ml Vial SUBCUT 4 unit QIDACHS [facility] Administration Protocol Montelukast Sodium 10 mg 11/01/20 21:00 Montelukast Sodium 10 Mg Tablet PO BEDTIME [facility] Pharmacy Consult 1 each 10/31/20 23:27 Consult Rx Perform Med Rec MISCELLANE ONCE PRN Consult order Sodium Chloride 3 ml 11/01/20 00:00 11/01/20 09:01 0.9 % Sodium Chloride Flush 3 Ml Syringe IVFLUSH 3 ml QSHIFT WIL Administration Valsartan 160 mg 11/01/20 09:00 11/01/20 09:01 Valsartan 160 Mg Tablet PO 160 mg DAILY WIL Administration Protocol Labs CBC & Chem 7: 11/01/20 05:33 11/01/20 05:33 Assessment and Plan (1) COVID-19: Status: Acute Assessment and Plan: 70F presented with cehst pain and sob Acute hypoxic respiratory failure secondary to COVID pneumonia No evidence of bacterial infection will discontinue ceftriaxone azithromycin Continue dexamethasone Wean O2 as tolerated Chest pain Reproducible, likely musculoskeletal Troponin negative No evidence of shingles Pre diabetes Insulin Breast nodule Outpatient follow-up History of provoked DVTs Not on anticoagulation Can follow up outpatient with Hematology Hypertension Terry
[2020-11-01 11:26] LABS: Glucose, Whole Blood 211 mg/dL (60-115)
[2020-11-01 16:17] LABS: Glucose, Whole Blood 239 mg/dL (60-115)
[2020-11-01] MEDS: Acetaminophen 325 MG TABLET 650 MG PO (16:31)
[2020-11-01 19:33] LABS: Glucose, Whole Blood 260 mg/dL (60-115)
[2020-11-01] MEDS: Montelukast Sodium 10 MG TABLET PO (20:40)
[2020-11-01] MEDS: Enoxaparin Sodium 40 MG/0.4 ML SYRINGE SUBCUT (23:13)
[2020-11-02] VITALS (7 sets, daily range): BP systolic 124–158; BP diastolic 59–70; PULSE 52–70; RESP 16–20; TEMP 36–36.6; O2SAT 94–97
[2020-11-02 06:03] LABS: Basophils Percent Auto 0.1 % (0-2); Hematocrit 33.9 % (37-47); Hemoglobin 10.4 g/dl (12.0-16.0); Imm Gran Abs Auto 0.03 X10*3/uL (0.00-0.03); Imm Gran Pct Auto 0.4 % (0.0-0.4); Lymphocytes Absolute Auto 0.6 X10*3/uL (1.2-4.9); Lymphocytes Percent Auto 7.7 % (20-40); MANUAL DIFF FLAG SCAN; Mean Corpuscular HGB Conc 30.7 g/dl (31.0-35.0); Mean Corpuscular Hemoglobin 22.6 pg (27.0-33.0); Mean Corpuscular Volume 73.5 fL (80-98); Mean Platelet Volume 10.7 fL (9.4-12.3); Monocytes Absolute Auto 0.4 X10*3/uL (0.1-1.2); Monocytes Percent Auto 4.5 % (2-11); Neutrophils Absolute Auto 7.2 X10*3/uL (2.0-8.3); Neutrophils Percent Auto 87.3 % (45-73); Platelet Count 170 X10*3/uL (160-400); Red Blood Count 4.61 X10*6/uL (4.20-5.50); Red Cell Distribution Width 15.9 % (11.0-16.0); SCAN SMEAR FLAG 1; White Blood Count 8.3 X10*3/uL (4.8-10.8)
[2020-11-02 06:35] LABS: Anion Gap 15 (12-20); Blood Urea Nitrogen 20 mg/dL (9-16); Calcium 8.4 mg/dL (8.4-10.2); Carbon Dioxide 23 mmol/L (22-29); Chloride 109 mmol/L (96-108); Creatinine Clr Calc Pharmacy 71.9; Estimated Glomerular Filt Rate > 60; Glucose Fasting 131 mg/dL (60-99); Potassium 4.5 mmol/L (3.3-5.1); SLIDE REVIEW VERIFIED; Sodium 142 mmol/L (135-145)
[2020-11-02 07:33] LABS: Glucose, Whole Blood 123 mg/dL (60-115)
[2020-11-02] MEDS: 0.9 % Sodium Chloride Flush 3 ML SYRINGE IVFLUSH ×3 (08:30→23:32)
[2020-11-02] MEDS: Valsartan 160 MG TABLET PO (08:31)
[2020-11-02] MEDS: dexAMETHasone 6 MG TABLET PO (08:31)
[2020-11-02] MEDS: Famotidine 20 MG TABLET PO (08:31)
[2020-11-02] MEDS: Aspirin Enteric Coated 81 MG TABLET.DR PO (08:31)
[2020-11-02] MEDS: Atorvastatin Calcium 10 MG TABLET PO (08:31)
--- NOTE | 2020-11-02 11:16 | MHC.CM.PN ---
Per ROUNDS discussion, Patient may be ready for dc tomorrow. Patient is on 2L O2 and she was not on O2 at home [employer]. CM will follow for possible need to adjust the dc plan.
[2020-11-02 11:24] LABS: Glucose, Whole Blood 156 mg/dL (60-115)
[2020-11-02] MEDS: Insulin Lispro 100 UNIT/ML 3 ML VIAL SUBCUT ×3 (12:17→21:03)
--- NOTE | 2020-11-02 12:39 | P.PNIM_ITS ---
Subjective Subjective Date of Service: 11/02/20 Interval History: chest sore Cardiovascular Cardiovascular: Reports no additional cardiovascular complaints Gastrointestinal Gastrointestinal: Reports no additional gastrointestinal complaints Physical Exam Vital Signs: Vital Signs: Last Vital Signs Temp 97.7 F 11/02/20 11:28 Pulse 54 11/02/20 11:28 Resp 20 11/02/20 11:28 BP 137/63 11/02/20 11:28 Pulse Ox 95 11/02/20 11:28 Body Mass Index 28.1 General: AO X 3, no acute distress Resp: CTA bilateral CVS: S1,S2,RRR GI: soft, non tender, non distended Neuro: motor grossly intact Psych: appropriate affect Objective Data Current Medications Generic Name Dose Route Start Last Admin Trade Name Freq PRN Reason Stop Dose Admin Acetaminophen 650 mg 10/31/20 23:46 11/01/20 16:31 Acetaminophen 325 Mg Tablet PO 650 mg Q6H PRN Administration Pain, Mild (Pain Scale 1-3) Aspirin 81 mg 11/01/20 09:00 11/02/20 08:31 Aspirin Enteric Coated 81 Mg Tablet. PO 81 mg DAILY WIL Administration Atorvastatin Calcium 10 mg 11/01/20 09:00 11/02/20 08:31 Atorvastatin Calcium 10 Mg Tablet PO 10 mg DAILY [facility]IL Administration Calcium Carbonate 1,000 mg 11/01/20 09:00 11/02/20 08:31 Calcium Carbonate 500 Mg Tablet PO 1,000 mg DAILY WIL Administration Dexamethasone 6 mg 11/01/20 09:00 11/02/20 08:31 Dexamethasone 6 Mg Tablet PO 6 mg DAILY WIL Administration Enoxaparin Sodium 40 mg 11/01/20 00:00 11/01/20 23:13 Enoxaparin Sodium 40 Mg/0.4 Ml Syringe SUBCUT 40 mg Q24H WIL Administration Famotidine 20 mg 11/01/20 09:00 11/02/20 08:31 Famotidine 20 Mg Tablet PO 20 mg DAILY WIL Administration Insulin Human Lispro 0 unit 11/01/20 07:30 11/02/20 12:17 Insulin Lispro 100 Unit/Ml 3 Ml Vial SUBCUT 2 unit QIDACHS [facility] Administration Protocol Montelukast Sodium 10 mg 11/01/20 21:00 11/01/20 20:40 Montelukast Sodium 10 Mg Tablet PO 10 mg BEDTIME WIL Administration Pharmacy Consult 1 each 10/31/20 23:27 Consult Rx Perform Med Rec MISCELLANE ONCE PRN Consult order Sodium Chloride 3 ml 11/01/20 00:00 11/02/20 08:30 0.9 % Sodium Chloride Flush 3 Ml Syringe IVFLUSH 3 ml QSHIFT WIL Administration Valsartan 160 mg 11/01/20 09:00 11/02/20 08:31 Valsartan 160 Mg Tablet PO 160 mg DAILY WIL Administration Protocol Labs CBC & Chem 7: 11/02/20 05:25 11/02/20 05:25 Microbiology Microbiology Results: Microbiology 10/31/20 16:19 Blood - Venous Blood Culture - Preliminary No growth after 24 hours. 10/31/20 16:19 Blood - Venous Blood Culture - Preliminary No growth after 24 hours. Assessment and Plan (1) COVID-19: Status: Acute Assessment and Plan: 70F presented with cehst pain and sob Acute hypoxic respiratory failure secondary to COVID pneumonia Continue dexamethasone day 3/10 Wean O2 as tolerated if subjectively improved, on room air, and no fever, likely dc in 24hrs Chest pain Reproducible, likely musculoskeletal Troponin negative No evidence of shingles Pre diabetes Insulin Breast nodule Outpatient follow-up History of provoked DVTs Not on anticoagulation Can follow up outpatient with Hematology Hypertension Terry
[2020-11-02] MEDS: Benzonatate 100 MG CAPSULE PO (15:59)
[2020-11-02 16:20] LABS: Glucose, Whole Blood 173 mg/dL (60-115)
--- NOTE | 2020-11-02 16:41 | P.CNID_ITS ---
History of Present Illness Data of Consult Service Date: 11/01/20 Requesting physician: Alf Gentile Primary Care Provider: Unknown Physician HPI Reason for consult: COVID She presents with cough and shortness of breath for 10 days ,worse over last two days She has no fever or chills Her is ill as well Her sister of COVID Review of Systems Review of Systems: Yes all other systems are reviewed and are negative PMFSH Past Medical History Medical History DVT (deep venous thrombosis) Iron deficiency anemia Osteoporosis Primary hyperparathyroidism Family History Family History Father Lung cancer Mother Alzheimer's dementia Family history: reviewed and not pertinent Surgical History Surgical History History of partial hysterectomy History of total left hip replacement Hx of cholecystectomy Hx of gastric bypass Hx of parathyroidectomy Hx of repair of left rotator cuff Social History Social History (Updated 10/09/20 @ 15:13 by ANDREW Thornton) Household Members: Significant Other Housing: Condominium Do you presently have visiting nurse or other home services: No Smoking Status: Never smoker Use of substances other than those prescribed or required for medical reasons: No Currently Displaying Signs/Symptoms of Drug Intoxication Withdrawal: No Have you been hit, kicked, punched, or otherwise hurt by someone within the past year? If so, by whom?: No Do you feel safe in your current relationship?: No Is there a partner from a previous relationship who is making you feel unsafe now?: No Are you made to feel afraid or neglected: No Advance Directives: No (Health care proxy Leelee Bhardwaj) Advance Directives Information Provided: Yes Do you have thoughts of harming others: None Do you have a plan to hurt others: No Plan Recently lost weight without trying: Yes service: No Current occupational status: retired Meds Allergies Allergy/AdvReac Type Severity Reaction Status Date / Time latex [LATEX] Allergy Unknown RASH Verified 10/31/20 17:31 NARCOTICS AdvReac Intermediate NAUSEA AND Uncoded 10/31/20 17:32 VOMITTING Active Medications: Current Medications Generic Name Dose Route Start Last Admin Trade Name Freq PRN Reason Stop Dose Admin Acetaminophen 650 mg 10/31/20 23:46 11/01/20 16:31 Acetaminophen 325 Mg Tablet PO 650 mg Q6H PRN Administration Pain, Mild (Pain Scale 1-3) Aspirin 81 mg 11/01/20 09:00 11/02/20 08:31 Aspirin Enteric Coated 81 Mg Tablet. PO 81 mg DAILY WIL Administration Atorvastatin Calcium 10 mg 11/01/20 09:00 11/02/20 08:31 Atorvastatin Calcium 10 Mg Tablet PO 10 mg DAILY WIL Administration Benzonatate 100 mg 11/02/20 12:40 11/02/20 15:59 Benzonatate 100 Mg Capsule PO 100 mg TID PRN Administration Cough Calcium Carbonate 1,000 mg 11/01/20 09:00 11/02/20 08:31 Calcium Carbonate 500 Mg Tablet PO 1,000 mg DAILY [facility] Administration Dexamethasone 6 mg 11/01/20 09:00 11/02/20 08:31 Dexamethasone 6 Mg Tablet PO 6 mg DAILY [facility] Administration Enoxaparin Sodium 40 mg 11/02/20 22:00 Enoxaparin Sodium 40 Mg/0.4 Ml Syringe SUBCUT Q24H [facility] Famotidine 20 mg 11/01/20 09:00 11/02/20 08:31 Famotidine 20 Mg Tablet PO 20 mg DAILY [facility] Administration Insulin Human Lispro 0 unit 11/01/20 07:30 11/02/20 16:23 Insulin Lispro 100 Unit/Ml 3 Ml Vial SUBCUT 2 unit QIDACHS [facility] Administration Protocol Montelukast Sodium 10 mg 11/01/20 21:00 11/01/20 20:40 Montelukast Sodium 10 Mg Tablet PO 10 mg BEDTIME [facility] Administration Pharmacy Consult 1 each 10/31/20 23:27 Consult Rx Perform Med Rec MISCELLANE ONCE PRN Consult order Sodium Chloride 3 ml 11/01/20 00:00 11/02/20 15:59 0.9 % Sodium Chloride Flush 3 Ml Syringe IVFLUSH 3 ml QSHIFT [facility] Administration Valsartan 160 mg 11/01/20 09:00 11/02/20 08:31 Valsartan 160 Mg Tablet PO 160 mg DAILY [facility] Administration Protocol Home Medications Medication Instructions Recorded Confirmed Last Taken Type albuterol sulfate 2 puff INHALATION Q6H PRN 08/30/20 11/01/20 Unknown History atorvastatin 10 mg PO DAILY 08/30/20 11/01/20 10/31/20 History estradiol [Yuvafem] 1 tab VAGINAL 2XW 08/30/20 11/01/20 Unknown History montelukast 10 mg PO BEDTIME 08/30/20 11/01/20 10/31/20 History valsartan 160 mg PO DAILY 08/30/20 11/01/20 10/31/20 History aspirin 81 mg tablet,delayed 81 mg PO DAILY 10/09/20 11/01/20 10/31/20 History release blood sugar diagnostic #10 ea 10/09/20 10/09/20 Unknown History calcium carbonate 600 mg calcium 1,200 mg PO DAILY 10/09/20 11/01/20 10/31/20 History (1,500 mg) tablet Physical Exam Vital Signs: Vital Signs: Last Vital Signs Temp 97.0 F 11/02/20 15:10 Pulse 60 11/02/20 15:10 Resp 16 11/02/20 15:10 BP 130/60 11/02/20 15:10 Pulse Ox 95 11/02/20 15:10 Body Mass Index 28.1 Const: General: cooperative Orientation/consciousness: patient oriented x3 HENMT: Head: Yes normal to inspection Mouth: Normal oral and palatal mucosa present Eyes: General: appearance normal, both eyes and all related structures Resp: Effort & Inspection: normal respiratory effort Cardio: Rate: regular rate Rhythm: regular rhythm GI: Palpation (GI): Soft to palpation and nontender : General: Yes no CVA tenderness Back/Spine/Pelvis: Back: no CVA tenderness Skin: General skin exam: no rashes or lesions noted Neuro: General: patient oriented x3 Extrem: General: Yes normal to inspection Results Labs CBC & Chem 7: 11/02/20 05:25 11/02/20 05:25 Labs: Short CBC 11/02/20 Range/Units 05:25 WBC 8.3 (4.8-10.8) X10*3/uL Hgb 10.4 L (12.0-16.0) g/dl Hct 33.9 L (37-47) % Plt Count 170 (160-400) X10*3/uL BMP 11/02/20 05:25 Sodium 142 Potassium 4.5 Chloride 109 H Carbon Dioxide 23 BUN 20 H Creatinine 0.64 Calcium 8.4 Microbiology Microbiology Results: Microbiology 10/31/20 16:19 Blood - Venous Blood Culture - Preliminary No growth after 24 hours. 10/31/20 16:19 Blood - Venous Blood Culture - Preliminary No growth after 24 hours. Assessment and Plan (1) COVID-19: Status: Acute No Remdesivir,not on oxygen May use 10 days Dexamethasone
[2020-11-02 20:47] LABS: Glucose, Whole Blood 215 mg/dL (60-115)
[2020-11-02] MEDS: Enoxaparin Sodium 40 MG/0.4 ML SYRINGE SUBCUT (21:03)
[2020-11-02] MEDS: Montelukast Sodium 10 MG TABLET PO (21:03)
[2020-11-03 03:09] VITALS: BP 150/65; PULSE 62; RESP 18; TEMP 36.6; O2SAT 94
[2020-11-03 07:25] VITALS: BP 175/81; PULSE 55; RESP 18; TEMP 36.1; O2SAT 94
[2020-11-03 07:31] LABS: Glucose, Whole Blood 92 mg/dL (60-115)
[2020-11-03] MEDS: Valsartan 160 MG TABLET PO (07:52)
[2020-11-03] MEDS: 0.9 % Sodium Chloride Flush 3 ML SYRINGE IVFLUSH (07:52)
[2020-11-03] MEDS: dexAMETHasone 6 MG TABLET PO (07:52)
[2020-11-03] MEDS: Atorvastatin Calcium 10 MG TABLET PO (07:53)
[2020-11-03] MEDS: Aspirin Enteric Coated 81 MG TABLET.DR PO (07:53)
[2020-11-03] MEDS: Famotidine 20 MG TABLET PO (07:53)
--- NOTE | 2020-11-03 11:05 | PM.DS ---
DS: Providers Provider Date of Service: 11/03/20 Date of admission: 10/31/20 23:46 Primary care physician: Unknown Physician Consults: 10/31/20 23:46 Consult to Infectious Diseases Routine Consulting Provider: Floridalma Pete Reason for consultation: COVID PNA DS: Diagnosis Discharge Diagnosis (1) COVID-19: Status: Acute (2) Acute hypoxemic respiratory failure: Status: Acute (3) Breast lesion: Status: Acute Problem details: 6mm left breast lesion DS: Medications Discharge Medications Home Medications: Home Medications Medication Instructions Recorded Confirmed albuterol sulfate 2 puff INHALATION Q6H PRN 08/30/20 11/01/20 atorvastatin 10 mg PO DAILY 08/30/20 11/01/20 estradiol [Yuvafem] 1 tab VAGINAL 2XW 08/30/20 11/01/20 montelukast 10 mg PO BEDTIME 08/30/20 11/01/20 valsartan 160 mg PO DAILY 08/30/20 11/01/20 aspirin 81 mg tablet,delayed 81 mg PO DAILY 10/09/20 11/01/20 release blood sugar diagnostic #10 ea 10/09/20 10/09/20 calcium carbonate 600 mg calcium 1,200 mg PO DAILY 10/09/20 11/01/20 (1,500 mg) tablet Previous Rx's Medication Instructions Recorded dexamethasone 6 mg PO DAILY #7 tab 11/03/20 DS: Summary Hospital Course Hospital Course: Patient was admitted for acute hypoxic respiratory failure secondary to COVID pneumonia. She was given Decadron. Her symptoms improved and she was able to ambulate on room air without desaturating. She will be discharged on 7 more days of p.o. Decadron. On her CT in the ED she was noted to have a 6 mm breast lesion, she will be referred to outpatient for ultrasound. Time Spent with Patient Time attestation: Total time spent providing and/or coordinating discharge services: Discharge coordination time: Greater than 30 minutes Physical Exam Vital Signs: Vital Signs: Last Vital Signs Temp 97.0 F 11/03/20 07:25 Pulse 55 11/03/20 07:25 Resp 18 11/03/20 07:25 BP 175/81 H 11/03/20 07:25 Pulse Ox 94 11/03/20 07:25 Body Mass Index 28.1 General: AO X 3, no acute distress Resp: CTA bilateral CVS: S1,S2,RRR GI: soft, non tender, non distended Neuro: motor grossly intact Psych: appropriate affect DS: Data Data Completed and Pending Labs on day of discharge: Laboratory Results - last 24 hr 11/02/20 11/02/20 11/02/20 11:14 16:04 20:24 POC Glucose 156 H 173 H 215 H 11/03/20 07:21 POC Glucose 92 Preliminary micro results at discharge 10/31/20 16:19 Blood Culture - Preliminary Blood - Venous No growth after 48 hours. 10/31/20 16:19 Blood Culture - Preliminary Blood - Venous No growth after 48 hours. Discharge Plan Discharge Patient Disposition: Home, Self-Care Referrals: Physician,Unknown [Primary Care Provider] - 2 days (CALL) Discharge Medications: New dexamethasone 6 mg Tablet 6 mg PO DAILY Qty: 7 RF: 0 Continued atorvastatin 10 mg tablet 10 mg PO DAILY RF: 0 montelukast 10 mg tablet 10 mg PO BEDTIME RF: 0 albuterol sulfate 90 mcg/actuation HFA aerosol inhaler 2 puff inhalation Q6H PRN (Reason: wheezing) RF: 0 valsartan 160 mg tablet 160 mg PO DAILY RF: 0 estradiol [Yuvafem] 10 mcg tablet 1 tab vaginal 2XW RF: 0 calcium carbonate [Calcium 600] 600 mg calcium (1,500 mg) tablet 1,200 mg PO DAILY RF: 0 (DME) blood sugar diagnostic Strip See Rx Instructions ea subcut QAM Qty: 10 RF: 0 aspirin [Adult Low Dose Aspirin] 81 mg tablet,delayed release (DR/EC) 81 mg PO DAILY RF: 0 Discharge Orders: Discharge Order (Routine); Ordered 11/03/20 Ordered By: Alf Gentile Activity on Discharge: As tolerated Stand Alone Forms: Patient Portal Discharge page Other Ambulatory Orders: US breast LT limited (Routine) Timeframe: 1 Week Facility: [facility] - Location: Ultrasound Ordered By: Alf Gentile Activity Restrictions/Additional Instructions: Your COVID pneumonia. Azithromycin as an antibiotic, take as prescribed. Cefpodoxime is also on antibiotic take as prescribed. Use albuterol inhaler at home as needed for shortness of breath. Call your doctor for follow-up If her symptoms persist or worsening of constant or worsening shortness of breath or chest pain, fever unresolved medications return to the ED immediately CDC Guidelines for home isolation: - Stay away from others - WEAR A MASK if you are sick AND STAY HOME - Cover your mouth and nose with a tissue when you cough or sneeze. Dispose of tissues in a lined trash can and wash your hands immediately with soap and water for at least 20 seconds. If soap and water are not available, clean hands with alcohol-based hand remote coders that contains at least 60% alcohol. - Clean your hands often with soap and water for at least 20 seconds - Avoid touching your eyes, nose and mouth with unwashed hands - Do not share dishes, drinking glasses, cups, eating utensils, towels, or bedding with other people in your home. After using these items, wash them thoroughly with soap and water or put in the customer logistics manager. - Clean high-touch surfaces in your isolation area ( sick room and bathroom) every day; let a caregiver clean and disinfect high-touch surfaces in other areas of the home. Clean the area or item with soap and water or another detergent if it is dirty. Then, use a household disinfectant. - Limit contact with pets and animals: If you must care for a pet, wash your hands before and after interacting with them) Care Plan Goals: recovery Health Concerns: 6mm breast lesion, covid Plan of Treatment: breast us, decadron, monitor oxygen Patient Instructions: Susan (ED), COVID-19 (Coronavirus Disease 2019) (ED)
--- NOTE | 2020-11-03 11:12 | MHC.CM.PN ---
Pt will DC home today with no services. Pt will self arrange transportation
[2020-11-03 11:26] VITALS: BP 152/72; PULSE 82; RESP 20; TEMP 36.6; O2SAT 94
[2020-11-03 11:27] LABS: Glucose, Whole Blood 161 mg/dL (60-115)
[2020-11-03] MEDS: Benzonatate 100 MG CAPSULE PO (11:52)
[2020-11-03] MEDS: Insulin Lispro 100 UNIT/ML 3 ML VIAL SUBCUT (11:52)
== END 2020-11-03 13:50 | disposition home or self-care (01) | DRG 177 ==
LOC: HO.ED 23:34 → HO.IMC 11-01 02:53
PROVIDERS: Nurse Practitioner Family; Physician Assistant; Admitting Provider Hospitalist; Emergency Provider Emergency Medicine; PCP Internal Medicine; Visit Provider Internal Medicine
DX: U07.1 COVID-19 (principal); J12.82 Pneumonia due to coronavirus disease 2019; J96.01 Acute respiratory failure with hypoxia; N63.0 Unspecified lump in unspecified breast; R73.03 Prediabetes; I10 Essential (primary) hypertension; Z86.718 Personal history of other venous thrombosis and embolism; Z88.6 Allergy status to analgesic agent; Z79.82 Long term (current) use of aspirin; Z79.899 Other long term (current) drug therapy
CPT/HCPCS: 36415; 71045; 71275; 80048; 80076; 81001; 82728; 82947; 83605; 83615; 83690; 83735; 83880; 84145; 84484; 85025; 85379; 85610; 85730; 86140; 87040; 87635; 93005; 93970; 96365; 96366; 99285; 99291; J0456; J0696; J1100; J1650; J8540; Q9967

== ENCOUNTER 2020-12-19 12:06 | Outpatient (REF) | payer MEDICARE, SELFPAY ==
--- NOTE | ~2020-12-19 | XR_ITS ---
EXAMINATION: XR CHEST, 2 VIEWS CLINICAL INFORMATION: PNEUMONIA DUE TO COVID-19 COMPARISON: 10/31/2020 TECHNIQUE: PA and lateral views of the chest were obtained. FINDINGS: Previously seen multifocal hazy pulmonary opacities have markedly improved as compared to prior. Lungs appear clear. No new airspace consolidation. Lung volumes are normal. No pneumothorax or pleural effusion. Cardiac meniscal contours are normal. No acute osseous findings. XR/XR chest 2V IMPRESSION: Clear lungs. Resolution of the previously seen airspace disease.
== END 2020-12-19 12:07 | disposition home or self-care (01) ==
LOC: HO.XRAY 12:06
PROVIDERS: PCP Internal Medicine; Visit Provider Internal Medicine
DX: U07.1 COVID-19 (principal); J12.82 Pneumonia due to coronavirus disease 2019
CPT/HCPCS: 71046

== ENCOUNTER → 2021-01-22 15:31 | Outpatient (BNVA) | payer MEDICARE, SELFPAY | PROVIDERS: PCP Internal Medicine; Visit Provider Internal Medicine Endocrinology, Diabetes & Metabolism | DX: E21.0 Primary hyperparathyroidism (principal); M81.0 Age-related osteoporosis without current pathological fracture | CPT/HCPCS: Q3014 ==

== ENCOUNTER 2021-01-24 13:31 | Outpatient (REF) | payer MEDICARE, SELFPAY ==
[2021-01-24 14:35] LABS: Albumin Level 4.4 g/dL (3.5-5.0); Calcium 9.4 mg/dL (8.4-10.2)
[2021-01-24 15:02] LABS: Vitamin D 25-OH Total 30.7 ng/mL (>30)
[2021-01-26 10:36] LABS: Calcium (PTHI) 9.5 mg/dL (8.6-10.4); PTHI 29 pg/mL (14-64)
== END 2021-01-24 13:32 | disposition home or self-care (01) ==
LOC: HO.LAB 13:31
PROVIDERS: PCP Internal Medicine; Visit Provider Internal Medicine Endocrinology, Diabetes & Metabolism
DX: M81.0 Age-related osteoporosis without current pathological fracture (principal); E21.0 Primary hyperparathyroidism; D50.9 Iron deficiency anemia, unspecified
CPT/HCPCS: 36415; 82040; 82306; 82310; 83970

== ENCOUNTER 2021-01-25 11:57 | Outpatient (REF) | payer MEDICARE, SELFPAY ==
[2021-01-30 19:41] LABS: N-Telopeptide 96 (see note); NTXCreaRU 144 mg/dL (20-275)
== END 2021-01-25 11:58 | disposition home or self-care (01) ==
LOC: HO.LNP 11:57
PROVIDERS: Visit Provider Internal Medicine Endocrinology, Diabetes & Metabolism
DX: M81.0 Age-related osteoporosis without current pathological fracture (principal); E21.0 Primary hyperparathyroidism
CPT/HCPCS: 82523

== ENCOUNTER 2021-02-19 11:36 | Outpatient (REF) | payer MEDICARE, SELFPAY ==
[2021-02-19 13:21] LABS: MANUAL DIFF FLAG NO
[2021-02-19 13:29] LABS: Basophils Absolute Auto 0.1 X10*3/uL (0.0-0.2); Basophils Percent Auto 0.7 % (0-2); Eosinophils Absolute Auto 0.2 X10*3/uL (0.0-0.4); Eosinophils Percent Auto 3.3 % (0-4); Hematocrit 39.4 % (37-47); Imm Gran Abs Auto 0.04 X10*3/uL (0.00-0.03); Imm Gran Pct Auto 0.6 % (0.0-0.4); Lymphocytes Absolute Auto 1.5 X10*3/uL (1.2-4.9); Lymphocytes Percent Auto 22.8 % (20-40); Mean Corpuscular HGB Conc 30.5 g/dl (31.0-35.0); Mean Corpuscular Hemoglobin 23.3 pg (27.0-33.0); Mean Corpuscular Volume 76.4 fL (80-98); Mean Platelet Volume 11.7 fL (9.4-12.3); Monocytes Absolute Auto 0.3 X10*3/uL (0.1-1.2); Monocytes Percent Auto 5.1 % (2-11); Neutrophils Absolute Auto 4.5 X10*3/uL (2.0-8.3); Neutrophils Percent Auto 67.5 % (45-73); Platelet Count 238 X10*3/uL (160-400); Red Blood Count 5.16 X10*6/uL (4.20-5.50); Red Cell Distribution Width 14.8 % (11.0-16.0); White Blood Count 6.7 X10*3/uL (4.8-10.8)
[2021-02-19 13:36] LABS: Estimated Average Glucose 154 mg/dL
[2021-02-19 13:42] LABS: Alanine Aminotransferase 15 U/L (0-31); Albumin Level 4.4 g/dL (3.5-5.0); Alkaline Phosphatase 158 U/L (39-117); Anion Gap 13 (12-20); Aspartate Amino Transferase 19 U/L (5-31); Bilirubin Total 1.2 mg/dL (0.0-1.0); Blood Urea Nitrogen 17 mg/dL (9-16); Calcium 9.2 mg/dL (8.4-10.2); Carbon Dioxide 26 mmol/L (22-29); Chloride 106 mmol/L (96-108); Estimated Glomerular Filt Rate > 60; Glucose Random 107 mg/dL (60-115); Potassium 4.2 mmol/L (3.3-5.1); Sodium 141 mmol/L (135-145); Total Protein 6.4 g/dL (6.5-8.0)
== END 2021-02-19 11:37 | disposition home or self-care (01) ==
LOC: HO.LAB 11:36
PROVIDERS: PCP Internal Medicine; Referring Provider Internal Medicine Endocrinology, Diabetes & Metabolism; Visit Provider Internal Medicine
DX: I10 Essential (primary) hypertension (principal); E11.9 Type 2 diabetes mellitus without complications
CPT/HCPCS: 36415; 80053; 83036; 85025

== ENCOUNTER 2021-03-07 07:47 | Outpatient (REF) | payer MEDICARE, SELFPAY ==
[2021-03-07 10:39] LABS: Cholesterol 117 mg/dL; HDL Cholesterol 40 mg/dL; LDL Cholesterol Calculated 53 mg/dl; Triglycerides 121 mg/dL
[2021-03-07 10:40] LABS: Creatinine Urine 181.13 mg/dL; Microalbum/Creatinine Ratio Ur 9.3 ug/mg cr
[2021-03-07 11:15] LABS: Vitamin B12 538 pg/mL (200-900)
[2021-03-09 05:02] LABS: LDL Cholesterol Direct 61 mg/dL (<100)
== END 2021-03-07 07:48 | disposition home or self-care (01) ==
LOC: HO.10HDL 07:47
PROVIDERS: PCP Internal Medicine; Visit Provider Internal Medicine Endocrinology, Diabetes & Metabolism
DX: E11.65 Type 2 diabetes mellitus with hyperglycemia (principal); E21.0 Primary hyperparathyroidism; M81.0 Age-related osteoporosis without current pathological fracture; E78.5 Hyperlipidemia, unspecified; Z79.84 Long term (current) use of oral hypoglycemic drugs; Z79.899 Other long term (current) drug therapy
CPT/HCPCS: 36415; 80061; 82043; 82607; 82947; 83721; 99212

== ENCOUNTER 2021-03-15 10:01 | Outpatient (REF) | payer MEDICARE, SELFPAY ==
[2021-03-15 14:38] LABS: Anion Gap 15 (12-20); Blood Urea Nitrogen 24 mg/dL (9-16); Calcium 9.4 mg/dL (8.4-10.2); Carbon Dioxide 25 mmol/L (22-29); Chloride 105 mmol/L (96-108); Cholesterol 136 mg/dL; Estimated Glomerular Filt Rate > 60; Glucose Random 122 mg/dL (60-115); HDL Cholesterol 50 mg/dL; LDL Cholesterol Calculated 61 mg/dl; Sodium 141 mmol/L (135-145); Triglycerides 128 mg/dL
== END 2021-03-15 10:02 | disposition home or self-care (01) ==
LOC: HO.WFDLDS 10:01
PROVIDERS: Visit Provider Internal Medicine
DX: E78.00 Pure hypercholesterolemia, unspecified (principal); E11.65 Type 2 diabetes mellitus with hyperglycemia; I10 Essential (primary) hypertension
CPT/HCPCS: 36415; 80048; 80061

== ENCOUNTER 2021-03-15 11:31 | Outpatient (REF) | payer MEDICARE, SELFPAY ==
--- NOTE | ~2021-03-15 | XR_ITS ---
EXAMINATION: XR WRIST, LEFT CLINICAL INFORMATION: Pain in left wrist COMPARISON: None TECHNIQUE: PA, lateral, and oblique views of the left wrist. FINDINGS: There is loss of joint space with sclerosis and hypertrophic bony spurring first carpometacarpal joint with mild soft tissue swelling consistent with degenerative hypertrophic arthritis. Rest of the visualized radioulnar carpal joint, intracarpal and carpometacarpal joint spaces normal. No acute fracture or dislocation seen. The soft tissues are normal. XR/XR wrist LT min 3V IMPRESSION: Hypertrophic degenerative osteoarthritic changes first carpometacarpal joint. No visible acute fracture or dislocation seen.
== END 2021-03-15 11:32 | disposition home or self-care (01) ==
LOC: HO.HMGCX 11:31
PROVIDERS: PCP Internal Medicine; Visit Provider Hospitalist
DX: M25.532 Pain in left wrist (principal)
CPT/HCPCS: 73110

== ENCOUNTER → 2021-03-26 12:26 | Outpatient (BNVA) | payer MEDICARE, SELFPAY | PROVIDERS: PCP Internal Medicine; Visit Provider Dietitian, Registered | DX: E11.65 Type 2 diabetes mellitus with hyperglycemia (principal) | CPT/HCPCS: 97802 ==

== ENCOUNTER 2021-04-09 11:00 | Outpatient (RCR) | payer MEDICARE, SELFPAY | END 2021-07-12 15:05 | disposition home or self-care (01) | LOC: HO.PTWFD 11:00 | PROVIDERS: PCP Internal Medicine; Visit Provider Physician Assistant Surgical | DX: Z96.651 Presence of right artificial knee joint (principal) | CPT/HCPCS: 97110; 97140; 97161; 97162; 97535 ==

== ENCOUNTER 2021-05-08 07:58 | Outpatient (REF) | payer MEDICARE, SELFPAY | END 2021-05-08 07:59 | disposition home or self-care (01) | LOC: HO.MDS 07:58 | PROVIDERS: PCP Internal Medicine; Visit Provider Internal Medicine Medical Oncology | DX: D50.9 Iron deficiency anemia, unspecified (principal) | CPT/HCPCS: 96365; 96366; J1200; J1750; Q0163 ==

== ENCOUNTER 2021-05-13 15:57 | Outpatient (REF) | payer MEDICARE, SELFPAY ==
--- NOTE | ~2021-05-13 | US_ITS ---
EXAMINATION: US RETROPERITONEAL LIMITED (RENAL ONLY) CLINICAL INFORMATION: Benign lipomatous neoplasm. COMPARISON: Ultrasound renals 05/21/2020 and 05/09/2019. CT abdomen/pelvis 01/05/2019. TECHNIQUE: Real-time imaging of the kidneys. FINDINGS: RIGHT KIDNEY: 10.1 x 4.6 x 6.2 cm (SAG x AP x TRV). The kidney is normal in size, contour, and echogenicity. Renal cortical thickness is normal. No renal calculi seen. There is mild pelvic fullness. There are several anechoic cysts. The largest cyst measures 1.2 x 1.0 x 1.1 cm. There are 2 hyperechoic lesions seen. The upper pole lesion measures 0.86 x 0.87 x 0.93 cm and a second hyperechoic lesion in the lower pole measures 0.66 x 0.37 x 0.61 cm. These are likely small angiomyolipomas. LEFT KIDNEY: 9.7 x 5.3 x 4.6 cm (SAG x AP x TRV). The kidney is normal in size, contour, and echogenicity. Renal cortical thickness is normal. No renal calculi or hydronephrosis. There is an anechoic cyst in the midpole measuring 1.8 x 1.8 x 1.9 cm. There is an echogenic lesion in the lower pole measuring 0.68 x 0.53 x 0.71 cm. 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 These were visualized in the right kidney on the previous study. 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 Bilateral renal cysts. They are unchanged to previous study 05/21/2020.
== END 2021-05-13 15:58 | disposition home or self-care (01) ==
LOC: HO.US 15:57
PROVIDERS: PCP Internal Medicine
DX: D17.9 Benign lipomatous neoplasm, unspecified (principal)
CPT/HCPCS: 76775

== ENCOUNTER → 2021-06-14 11:06 | Outpatient (BNVA) | payer MEDICARE, SELFPAY | PROVIDERS: PCP Internal Medicine | DX: D17.71 Benign lipomatous neoplasm of kidney (principal) | CPT/HCPCS: 99212 ==

== ENCOUNTER 2021-10-22 14:58 | Outpatient (REF) | payer MEDICARE, SELFPAY ==
--- NOTE | ~2021-10-22 | US_ITS ---
EXAMINATION: US THYROID CLINICAL INFORMATION: Nontoxic multinodular goiter. COMPARISON: Ultrasound soft tissue head/neck thyroid dated 02/14/2020. TECHNIQUE: Linear transducer grayscale and color Doppler examination with attention to the region of the thyroid. FINDINGS: SIZE: Measurements of the thyroid lobes and nodules are given in sagittal, anteroposterior and transverse dimensions respectively. Right Thyroid Lobe: 3.1 x 0.8 x 1.2 cm, volume 1.6 mL. Previously 3.8 x 1.3 x 1.6 cm, volume 4.1 mL. Parenchyma: The gland echotexture is heterogeneous. Thyroid vascularity is increased. Left Thyroid Lobe: 3.1 x 1.2 x 1.1 cm, volume 2.1 mL. Previously 3.9 x 1.3 x 1.5 cm, volume 4.0 mL. Parenchyma: The gland echotexture is heterogeneous. Thyroid vascularity is increased. Isthmus: 0.3 cm in maximum AP dimension. Previously 0.4 cm. Estimated total number of nodules greater than or equal to 1 cm: 0. [employer] nodules are described as follows: 1. Location: Left mid. Size: 0.2 x 0.1 x 0.1 cm, volume 0.002 mL. Previously: 0.3 x 0.2 x 0.3 cm, volume 0.009 mL. Nodule characteristics: Composition: Cystic(0). ACR TI-RADS total points: 0 ACR TI-RADS category: 1 Significant change in size (>/= 20% in 2 dimensions and minimal increase of 2 mm or 50% or greater increase in volume): Change in features: Change in ACR TI-RADS risk category: The previously identified colloid cysts are no longer appreciated. There are 2 new linear echogenic parallel densities in the lateral left thyroid gland measuring 1 x 6 mm, question representing surgical clips or postsurgical change following previous parathyroid surgery. NODES: No lymphadenopathy is seen in the tissue surrounding the thyroid gland. US/US thyroid IMPRESSION: Small slightly heterogeneous hypervascular thyroid gland. Solitary small left thyroid nodule decreased in size from previous exam. Question new postsurgical change to the left lobe. ACR TI-RADS RECOMMENDATION REFERENCE: Ultrasound-guided fine-needle aspiration, followup ultrasound, no further follow up. * TR1 (0 point) and TR 2 (2 points): No FNA or follow up * TR3 (3 points): FNA if more than or equal to 2.5 cm in maximum dimension, followup ultrasound in 1, 3 and 5 years if 1.5 to 2.4 cm in maximum dimension. * TR4 (4-6 points): FNA if more than or equal to 1.5 cm in maximum dimension, followup ultrasound in 1, 2, 3 and 5 years if 1 to 1.4 cm in maximum dimension. * TR5 (more than or equal to 7 points): FNA if more than or equal to 1 cm in maximum dimension, followup ultrasound every year for 5 years if 0.5 to 0.9 cm in maximum dimension. * TR3, TR4 or TR5 nodules that are below the size threshold for follow up receive no follow up.
[2021-10-22 16:50] LABS: Albumin Level 4.4 g/dL (3.5-5.0); Calcium 9.7 mg/dL (8.4-10.2)
[2021-10-22 17:17] LABS: Vitamin D 25-OH Total 46.8 ng/mL (>30)
[2021-10-23 13:01] LABS: Calcium (PTHI) 9.4 mg/dL (8.6-10.4); PTHI 33 pg/mL (14-64)
== END 2021-10-22 14:59 | disposition home or self-care (01) ==
LOC: HO.HMGCX 14:58
PROVIDERS: Absent Provider Internal Medicine; PCP Internal Medicine Endocrinology, Diabetes & Metabolism; Visit Provider Internal Medicine Endocrinology, Diabetes & Metabolism
DX: E04.2 Nontoxic multinodular goiter (principal); E21.3 Hyperparathyroidism, unspecified
CPT/HCPCS: 36415; 76536; 82040; 82306; 82310; 83970

== ENCOUNTER → 2021-10-29 09:24 | Outpatient (BNVA) | payer MEDICARE, SELFPAY | PROVIDERS: PCP Internal Medicine; Visit Provider Internal Medicine Endocrinology, Diabetes & Metabolism | DX: M81.0 Age-related osteoporosis without current pathological fracture (principal); E21.0 Primary hyperparathyroidism; E04.2 Nontoxic multinodular goiter | CPT/HCPCS: 99212 ==

== ENCOUNTER 2021-11-04 12:17 | Outpatient (REF) | payer MEDICARE, SELFPAY ==
[2021-11-04 15:30] LABS: Free T4 (Free Thyroxine) 0.82 ng/dL (0.71-1.85)
[2021-11-05 17:16] LABS: Thyroid Peroxidase Antibodies <1 IU/mL (<9)
== END 2021-11-04 12:18 | disposition home or self-care (01) ==
LOC: HO.10HDL 12:17
PROVIDERS: Absent Provider Internal Medicine; Visit Provider Internal Medicine Endocrinology, Diabetes & Metabolism
DX: E04.2 Nontoxic multinodular goiter (principal)
CPT/HCPCS: 36415; 84439; 84443; 86376

== ENCOUNTER → 2022-03-06 08:51 | Outpatient (BNVA) | payer MEDICARE, SELFPAY | PROVIDERS: PCP Internal Medicine; Visit Provider Internal Medicine Endocrinology, Diabetes & Metabolism | DX: E21.0 Primary hyperparathyroidism (principal); E04.2 Nontoxic multinodular goiter; M81.0 Age-related osteoporosis without current pathological fracture | CPT/HCPCS: 99212 ==

== ENCOUNTER 2022-03-14 17:15 | Outpatient (REF) | payer MEDICARE, SELFPAY | END 2022-03-14 17:16 | disposition home or self-care (01) | LOC: HO.LNP 17:15 | PROVIDERS: Visit Provider Nurse Practitioner Family | DX: Z13.89 Encounter for screening for other disorder (principal) ==

== ENCOUNTER 2022-03-21 13:57 | Outpatient (REF) | payer MEDICARE, SELFPAY | END 2022-03-21 13:58 | disposition home or self-care (01) | LOC: HO.LNP 13:57 | PROVIDERS: Visit Provider Nurse Practitioner Family | DX: N39.0 Urinary tract infection, site not specified (principal) | CPT/HCPCS: 87086 ==

== ENCOUNTER 2022-11-21 12:58 | Outpatient (REF) | payer MEDICARE, SELFPAY ==
--- NOTE | ~2022-11-21 | US_ITS ---
EXAMINATION: US RETROPERITONEAL LIMITED (RENAL ONLY) CLINICAL INFORMATION: Benign lipomatous neoplasm of kidney. COMPARISON: Renal ultrasounds 05/13/2021 and 05/21/2020. CT abdomen and pelvis 01/05/2019. TECHNIQUE: Real-time imaging of the kidneys. FINDINGS: RIGHT KIDNEY: 10.4 x 4.9 x 5.4 cm (SAG x AP x TRV). The kidney is normal in size, contour, and echogenicity. Renal cortical thickness is normal. No hydronephrosis. Two hyperechoic, echogenic renal masses are again seen, one near the upper pole measuring 1.8 x 0.8 x 1.5 cm and one near the lower pole measuring 0.4 cm in diameter. Ultrasound characteristics are consistent with benign renal angiomyolipomas. Benign Bosniak class 1 parapelvic renal cysts are also present which have been seen in the past. LEFT KIDNEY: 9.2 x 5.7 x 5.3 cm (SAG x AP x TRV). The kidney is normal in size, contour, and echogenicity. Renal cortical thickness is normal. No renal calculi or hydronephrosis. There is a parapelvic echogenic mass measuring 0.6 x 0.6 x 0.7 cm consistent with a benign angiomyolipoma. Multiple benign Bosniak 1 class renal cysts are seen predominately parapelvic, the largest measuring 2.5 x 2.0 x 1.8 cm. US/US renal BI IMPRESSION: 1. Bilateral benign renal angiomyolipomas, similar to prior studies. 2. Benign Bosniak class I renal cysts bilaterally which need no further imaging or follow-up.
== END 2022-11-21 12:59 | disposition home or self-care (01) ==
LOC: HO.US 12:58
PROVIDERS: PCP Internal Medicine
DX: D17.71 Benign lipomatous neoplasm of kidney (principal)
CPT/HCPCS: 76775

== ENCOUNTER → 2022-11-28 11:48 | Outpatient (BNVA) | payer MEDICARE, SELFPAY | PROVIDERS: PCP Internal Medicine; Visit Provider Urology | DX: N39.0 Urinary tract infection, site not specified (principal); N95.8 Other specified menopausal and perimenopausal disorders; D17.71 Benign lipomatous neoplasm of kidney; Z79.82 Long term (current) use of aspirin; Z79.899 Other long term (current) drug therapy | CPT/HCPCS: 99212 ==

== ENCOUNTER 2022-12-30 08:47 | Outpatient (REF) | payer MEDICARE, SELFPAY ==
--- NOTE | ~2022-12-30 | XR_ITS ---
EXAMINATION: XR CHEST CLINICAL INFORMATION: Cough. COMPARISON: 12/19/2020 chest radiographs. TECHNIQUE: 2 views of the chest were obtained. FINDINGS: No significant abnormality is noted involving the heart, lungs, mediastinum, bony thorax or soft tissues. XR/XR chest 2V IMPRESSION: No acute cardiopulmonary process.
== END 2022-12-30 08:48 | disposition home or self-care (01) ==
LOC: HO.XRAY 08:47
PROVIDERS: PCP Internal Medicine; Visit Provider Internal Medicine
DX: R05.1 Acute cough (principal)
CPT/HCPCS: 71046

== ENCOUNTER 2023-06-03 11:30 | Outpatient (AMB) | payer MEDICARE, SELFPAY ==
--- NOTE | 2023-06-03 11:33 | MHC.OFFVIS ---
Intake Intake Visit Reasons: UTI- follow up Intake Note: Patient presents for follow up uti Urology Medications: estradiol cream Blood thinners: aspirin PVR: 71ml's Umbrella Cutter Required: No Accompanied by: Self / Same As Patient Allergies latex [LATEX] Allergy (Unknown, Verified 06/03/23 22:21) RASH NARCOTICS Adverse Reaction (Intermediate, Uncoded 06/03/23 22:21) NAUSEA AND VOMITTING Medication List - Last Reconciled 06/03/23 by NILAY Fierro- aspirin (Adult Low Dose Aspirin) 81 mg PO DAILY atorvastatin 10 mg PO DAILY blood sugar diagnostic As directed calcium carbonate (Calcium) 600 mg PO BID 30 days cyclosporine 0.05% (Restasis) drps ophthalmic (eye) estradiol 10 mcg vaginal 2XW 28 days famotidine 20 mg PO BID hydrochlorothiazide 12.5 mg PO DAILY lancets As directed lancets (OneTouch Delica Plus Lancet) As directed metformin ER 500 mg PO BID 90 days valsartan 160 mg PO DAILY HPI HPI Comments History of Present Illness Details Alexa is a pleasant 73 year old female patient of Dr. Fragoso. 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 She presents to the office today for follow-up of her genitourinary urinary symptoms of menopause, angiomyolipoma and recurring UTIs. In discussion with the patient today she reports to be doing and feeling well. However, reports having had a urinary tract infection approximately 1 month ago. She reports feeling dysuria, and bladder pressure/pain. She reports having taken antibiotic prescription given to her previously and reports symptoms improved. She also discusses feeling although she has never had any history of nephrolithiasis of possibly passing a kidney stone due to the amount of pain she had been experiencing. She reports symptoms have since subsided. Of note, patient was seen by Dr. Pearce approximately 6 months ago at which time renal imaging results were reviewed with the patient for her longstanding history of renal angiolipoma. It appears ultrasound stable with bilateral renal angiolipoma was approximately 1-2 cm. 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 She also discusses her upcoming travels to a baby shower. She currently denies any bothersome urinary issues or concerns. In office urinalysis results reviewed with the patient today. She reports compliance with Vagifem tablets as prescribed. She otherwise offers no issues or concerns at this time. [facility] Medical History Angiomyolipoma of both kidneys Dyslipidemia Diabetes type 2, uncontrolled Osteoporosis Primary hyperparathyroidism DVT (deep venous thrombosis) Iron deficiency anemia Surgical History History of total left hip replacement Hx of parathyroidectomy Hx of repair of left rotator cuff History of partial hysterectomy Hx of gastric bypass Hx of cholecystectomy Family History Father Lung cancer Mother Alzheimer's dementia Social History Household Members: Significant Other [facility]: [facility] Do you presently have visiting nurse or other home services: No Alcohol intake: never Patient Tobacco Use Status: Never used Tobacco service: No Current occupational status: retired Review of Systems Const Reports as per HPI Eyes Reports no additional complaints ENT Reports no additional complaints Card Reports as per HPI Resp Reports no additional complaints GI Reports no additional complaints Reports as per HPI Musc Reports as per HPI Neuro Reports no additional complaints Psych Reports no additional complaints Endo Reports as per HPI Physical Exam Const General: cooperative, healthy appearing, comfortable, no acute distress, well developed, alert and awake Orientation/consciousness: patient oriented x3 Limitations: no limitations HEENT Head: Yes normal to inspection, Yes normocephalic and Yes atraumatic Ears: hearing grossly normal bilaterally Eyes General: appearance normal, both eyes and all related structures Neck Neck: Yes normal visual inspection and Yes trachea midline Chest Chest palpation & inspection: normal inspection of the chest Resp Effort & Inspection: normal respiratory effort and able to speak in complete sentences Cardio Rate: regular rate GI Inspection: Yes normal to inspection General: Yes no CVA tenderness Back/Spine/Pelvis Back: no CVA tenderness Skin General skin exam: no rashes or lesions noted Neuro General: patient oriented x3 Extrem General: Yes normal to inspection Psych Appearance: grossly normal and well kempt Mental Status: mental status grossly normal Speech and movement: Normal speech and movement present and Clear speech present Affect: normal affect Attitude: cooperative Thought process: Normal thought process present Thought content: Normal thought content present Insight: Fair insight present (Psych) Judgement: Fair judgement present (Psych) Office Procedures Post Void Residual Post Residual Void Post Void Residual (PVR): 71 [id number] Void Residual by ultrasound Results AMB Urinalysis, Automated UA Leukoctes 70 Ben/uL Last Edit by Leidy Manzo on 06/03/23 12:23 UA Nitrite Negative Last Edit by Leidy Manzo on 06/03/23 12:23 UA Urobilinogen 0.2 mg/dL Last Edit by Leidy Manzo on 06/03/23 12:23 UA Protein 0 mg/dL Last Edit by Leidy Manzo on 06/03/23 12:23 UA pH 6.0 Last Edit by Leidy Manzo on 06/03/23 12:23 UA Blood 0 Feliciano/uL Last Edit by Leidy Manzo on 06/03/23 12:23 UA Specific [place] 1.015 Last Edit by Leidy Manzo on 06/03/23 12:23 UA Ketone Negative Last Edit by Leidy Manzo on 06/03/23 12:23 UA Bilirubin 0 mg/dL Last Edit by Leidy Manzo on 06/03/23 12:23 UA Glucose 0 mg/dL Last Edit by [email or web address] on 06/03/23 12:23 Results Reviewed Results Reviewed: Laboratory Last Values Urine pH (Auto) 6.0 06/03/23 11:38 Specific [place] (Auto) 1.015 06/03/23 11:38 Urine Protein (Auto) 0 mg/dL 06/03/23 11:38 Glucose (UA)(Auto) 0 mg/dL 06/03/23 11:38 Urine Ketones (Auto) Negative 06/03/23 11:38 Urine Blood (Auto) 0 Feliciano/uL 06/03/23 11:38 Urine Nitrite (Auto) Negative 06/03/23 11:38 Urine Bilirubin (Auto) 0 mg/dL 06/03/23 11:38 Urine Urobilinogen (Auto) 0.2 mg/dL 06/03/23 11:38 Leukocyte Esterase (Auto) 70 Ben/uL 06/03/23 11:38 Assessment & Plan Assessment & Plan (1) Genitourinary syndrome of menopause: Code(s): N95.8 - Other specified menopausal and perimenopausal disorders (2) Recurrent UTI: Code(s): N39.0 - Urinary tract infection, site not specified (3) Angiomyolipoma of both kidneys: Code(s): D17.71 - Benign lipomatous neoplasm of kidney Plan In office urinalysis results reviewed with the patient today; as noted above. PVR:71ml's Patient currently denies any bothersome urinary issues or concerns at this time. Continue Vagifem as discussed and prescribed. Start methenamine and vitamin-C as discussed and prescribed. Discussed UTI prevention with D mannose supplement, vitamin-C, increasing fluid intake, behavioral therapy with timed voiding, perineal hygiene and postcoital voiding, and management of constipation with stool softeners and increased fiber intake. Follow-up in 3 months with PVR; or sooner with any issues, concerns, and or questions. Orders: Orders AMB Urinalysis Automated Today Z13.9 - Encounter for screening, unspecified AMB Post Void Residual by ultrasound Today N39.0 - Urinary tract infection, site not specified Medications: New ascorbic acid (vitamin C) 1 g PO DAILY 90 days 90 tabs 1RF N39.0 - Urinary tract infection, site not specified methenamine hippurate 1 g PO DAILY 90 days 90 tabs 1RF N39.0 - Urinary tract infection, site not specified Patient Instructions: The patient had an opportunity to ask questions regarding the treatment plan. All questions were answered. Physical exam, labs, and imaging were discussed and reviewed in detail. As well as risks, benefits, and discussion of treatment choices. No major barriers to understanding were identified. The patient expressed understanding and agreement with the above treatment plan. The patient was made aware they should contact our office by phone for worsening of their current condition, the appearance of new symptoms, or with any questions or concerns. Compliance is encouraged with any medications and follow up testing that is ordered. It is a privilege to be allowed the opportunity to participate in? your urological care.? Again, if you have any questions or concerns If you have any questions or concerns please do not hesitate to contact me. The office is [phone]. This note is constructed using voice recognition software. While every effort has been made to ensure accuracy family service center director errors may have been included. Yours sincerely, BOY Fierro Coding Level of Care Code Est Pt Level 4 (84536) Diagnoses Genitourinary syndrome of menopause N95.8 Recurrent UTI N39.0 Angiomyolipoma of both kidneys D17.71 CPT Codes Post Residual Void - PVR CPT Code: 40850-Ekvm Void Residual by ultrasound ([id number])
== END 2023-06-03 13:06 | disposition home or self-care (01) ==
PROVIDERS: PCP Internal Medicine; Visit Provider Nurse Practitioner Family
DX: N95.8 Other specified menopausal and perimenopausal disorders (principal); N39.0 Urinary tract infection, site not specified; D17.71 Benign lipomatous neoplasm of kidney
CPT/HCPCS: 99214

== ENCOUNTER → 2023-06-03 11:30 | Outpatient (BNVA) | payer MEDICARE, SELFPAY | PROVIDERS: Visit Provider Nurse Practitioner Family | DX: N95.8 Other specified menopausal and perimenopausal disorders (principal); N39.0 Urinary tract infection, site not specified; D17.71 Benign lipomatous neoplasm of kidney | CPT/HCPCS: 51798; 81003; 99212 ==

== ENCOUNTER 2023-09-03 13:19 | Outpatient (AMB) | payer MEDICARE, SELFPAY ==
--- NOTE | 2023-09-03 13:32 | MHC.OFFVIS ---
Intake Intake Visit Reasons: 3 mo/ PVR Intake Note: Patient presents for follow up uti Urology Medications: estradiol cream Blood thinners: aspirin PVR: 14ml's [employer] Loader Required: No Accompanied by: Self / Same As Patient Allergies latex [LATEX] Allergy (Unknown, Verified 09/03/23 20:34) RASH NARCOTICS Adverse Reaction (Intermediate, Uncoded 09/03/23 20:34) NAUSEA AND VOMITTING Medication List - Last Reconciled 09/03/23 by NILAY Fierro-TEMITOPE ascorbic acid (vitamin C) 1 g PO DAILY 90 days aspirin (Adult Low Dose Aspirin) 81 mg PO DAILY atorvastatin 10 mg PO DAILY blood sugar diagnostic As directed calcium carbonate (Calcium) 600 mg PO BID 30 days cyclosporine 0.05% (Restasis) drps ophthalmic (eye) estradiol 10 mcg vaginal 2XW 28 days famotidine 20 mg PO BID hydrochlorothiazide 12.5 mg PO DAILY lancets As directed lancets (OneTouch Delica Plus Lancet) As directed metformin ER 500 mg PO BID 90 days methenamine hippurate 1 g PO DAILY 90 days valsartan 160 mg PO DAILY HPI HPI Comments History of Present Illness Details Alexa is a pleasant 73 year old female patient of Dr. Fragoso. 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 She presents to the office today for follow-up of her genitourinary urinary symptoms of menopause, angiomyolipoma and recurring UTIs. In discussion with the patient today she reports to be doing and feeling well. She reports since her last office visit here approximately 3 months ago she has not experienced any urinary tract infections and or UTI like symptoms. She reports having lost approximately 21 lb since March of 2023. She discusses having given up her diet soda, bladder, bread, and chips and has found this helpful in her weight loss. She currently denies any bothersome urinary issues or concerns. She discusses her daughter who is currently undergoing fistula basement for dialysis related to polycystic kidney disease. She also discusses her family stressors of her daughters who is in laws have passed. She otherwise denies urinary urgency, urinary frequency, incontinence, nocturia, hematuria, dysuria, foul smelling urine, changes to urinary stream, flank pain, fever, and or chills. She is happy with her current voiding parameters. In office urinalysis results reviewed with the patient today. PVR 14 mLs. 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 She reports compliance with Vagifem tablets as prescribed. She otherwise offers no issues or concerns at this time. [facility] Medical History Angiomyolipoma of both kidneys Dyslipidemia Diabetes type 2, uncontrolled Osteoporosis Primary hyperparathyroidism DVT (deep venous thrombosis) Iron deficiency anemia Surgical History History of total left hip replacement Hx of parathyroidectomy Hx of repair of left rotator cuff History of partial hysterectomy Hx of gastric bypass Hx of cholecystectomy Family History Father Lung cancer Mother Alzheimer's dementia Social History Household Members: Significant Other [facility]: [facility] Do you presently have visiting nurse or other home services: No Alcohol intake: never Patient Tobacco Use Status: Never used Tobacco service: No Current occupational status: retired Review of Systems Const Reports as per HPI Eyes Reports no additional complaints ENT Reports no additional complaints Card Reports as per HPI Resp Reports no additional complaints GI Reports no additional complaints Reports as per HPI Musc Reports as per HPI Neuro Reports no additional complaints Psych Reports no additional complaints Endo Reports as per HPI Physical Exam Const General: cooperative, healthy appearing, comfortable, no acute distress, well developed, alert and awake Orientation/consciousness: patient oriented x3 Limitations: no limitations HEENT Head: Yes normal to inspection, Yes normocephalic and Yes atraumatic Ears: hearing grossly normal bilaterally Eyes General: appearance normal, both eyes and all related structures Neck Neck: Yes normal visual inspection and Yes trachea midline Chest Chest palpation & inspection: normal inspection of the chest Resp Effort & Inspection: normal respiratory effort and able to speak in complete sentences Cardio Rate: regular rate GI Inspection: Yes normal to inspection General: Yes no CVA tenderness Back/Spine/Pelvis Back: no CVA tenderness Skin General skin exam: no rashes or lesions noted Neuro General: patient oriented x3 Extrem General: Yes normal to inspection Psych Appearance: grossly normal and well kempt Mental Status: mental status grossly normal Speech and movement: Normal speech and movement present and Clear speech present Affect: normal affect Attitude: cooperative Thought process: Normal thought process present Thought content: Normal thought content present Insight: Fair insight present (Psych) Judgement: Fair judgement present (Psych) Office Procedures Post Void Residual Post Residual Void Post Void Residual (PVR): 14 [id number] Void Residual by ultrasound Results AMB Urinalysis, Automated UA Leukoctes 500 Ben/uL Last Edit by ThetaRayjosé miguel Manzo on 09/03/23 13:48 UA Nitrite Negative Last Edit by ThetaRayjosé miguel [employer] on 09/03/23 13:48 UA Urobilinogen 0.2 mg/dL Last Edit by [employer] on 09/03/23 13:48 UA Protein 15 mg/dL Last Edit by [employer] on 09/03/23 13:48 UA pH 5.5 Last Edit by ThetaRayjosé miguel [employer] on 09/03/23 13:48 UA Blood 0 Feliciano/uL Last Edit by [employer] on 09/03/23 13:48 UA Specific [place] 1.020 Last Edit by [employer] on 09/03/23 13:48 UA Ketone Negative Last Edit by [employer] on 09/03/23 13:48 UA Bilirubin 0 mg/dL Last Edit by [employer] on 09/03/23 13:48 UA Glucose 0 mg/dL Last Edit by ThetaRayjosé miguel [employer] on 09/03/23 13:48 Results Reviewed Results Reviewed: Laboratory Last Values Urine pH (Auto) 5.5 09/03/23 13:39 Specific [place] (Auto) 1.020 09/03/23 13:39 Urine Protein (Auto) 15 mg/dL 09/03/23 13:39 Glucose (UA)(Auto) 0 mg/dL 09/03/23 13:39 Urine Ketones (Auto) Negative 09/03/23 13:39 Urine Blood (Auto) 0 Feliciano/uL 09/03/23 13:39 Urine Nitrite (Auto) Negative 09/03/23 13:39 Urine Bilirubin (Auto) 0 mg/dL 09/03/23 13:39 Urine Urobilinogen (Auto) 0.2 mg/dL 09/03/23 13:39 Leukocyte Esterase (Auto) 500 Ben/uL 09/03/23 13:39 Assessment & Plan Assessment & Plan (1) Recurrent UTI: Code(s): N39.0 - Urinary tract infection, site not specified (2) Angiomyolipoma of both kidneys: Code(s): D17.71 - Benign lipomatous neoplasm of kidney (3) Genitourinary syndrome of menopause: Code(s): N95.8 - Other specified menopausal and perimenopausal disorders Plan In office urinalysis results reviewed with the patient today; as noted above. PVR:14ml's Patient currently denies any bothersome urinary issues or concerns at this time. Continue Vagifem, methenamine and vitamin-C as discussed and prescribed. Discussed obtaining retroperitoneal ultrasound prior to next office visit She is happy with her current voiding parameters. Discussed UTI prevention with D mannose supplement, vitamin-C, increasing fluid intake, behavioral therapy with timed voiding, perineal hygiene and postcoital voiding, and management of constipation with stool softeners and increased fiber intake. Follow-up in 6 months with PVR and imaging to be completed prior; or sooner with any issues, concerns, and or questions. Orders: Orders AMB Urinalysis Automated Today Z13.9 - Encounter for screening, unspecified AMB Post Void Residual by ultrasound Today N39.0 - Urinary tract infection, site not specified US retroperitoneal comp 6 Months D17.71 - Benign lipomatous neoplasm of kidney, N39.0 - Urinary tract infection, site not specified Patient Instructions: The patient had an opportunity to ask questions regarding the treatment plan. All questions were answered. Physical exam, labs, and imaging were discussed and reviewed in detail. As well as risks, benefits, and discussion of treatment choices. No major barriers to understanding were identified. The patient expressed understanding and agreement with the above treatment plan. The patient was made aware they should contact our office by phone for worsening of their current condition, the appearance of new symptoms, or with any questions or concerns. Compliance is encouraged with any medications and follow up testing that is ordered. It is a privilege to be allowed the opportunity to participate in? your urological care.? Again, if you have any questions or concerns If you have any questions or concerns please do not hesitate to contact me. The office is [phone]. This note is constructed using voice recognition software. While every effort has been made to ensure accuracy sifter and miller errors may have been included. Yours sincerely, Johana Torre, [employer] Coding Level of Care Code Est Pt Level 3 (22847) Diagnoses Recurrent UTI N39.0 Angiomyolipoma of both kidneys D17.71 Genitourinary syndrome of menopause N95.8 CPT Codes Post Residual Void - PVR CPT Code: 49738-Dnaf Void Residual by ultrasound ([id number])
== END 2023-09-03 14:27 | disposition home or self-care (01) ==
PROVIDERS: PCP Internal Medicine; Visit Provider Nurse Practitioner Family
DX: N39.0 Urinary tract infection, site not specified (principal); D17.71 Benign lipomatous neoplasm of kidney; N95.8 Other specified menopausal and perimenopausal disorders; Z13.9 Encounter for screening, unspecified
CPT/HCPCS: 99213

== ENCOUNTER → 2023-09-03 13:19 | Outpatient (BNVA) | payer MEDICARE, SELFPAY | PROVIDERS: PCP Internal Medicine; Visit Provider Nurse Practitioner Family | DX: N39.0 Urinary tract infection, site not specified (principal); N95.8 Other specified menopausal and perimenopausal disorders; D17.71 Benign lipomatous neoplasm of kidney | CPT/HCPCS: 51798; 81003; 99212 ==

== ENCOUNTER 2024-02-29 13:46 | Outpatient (REF) | payer MEDICARE, SELFPAY ==
--- NOTE | ~2024-02-29 | US_ITS ---
EXAMINATION: US RETROPERITONEAL COMPLETE (RENAL) CLINICAL INFORMATION: UTI. COMPARISON: 11/21/2022 TECHNIQUE: Real-time imaging of the kidneys and bladder. FINDINGS: RIGHT KIDNEY: 10.4 x 5.2 x 6.0 cm (SAG x AP x TRV). The kidney is normal in size, contour, and echogenicity. Renal cortical thickness is normal. No hydronephrosis. Two hyperechoic, echogenic renal masses are again seen, one in the mid kidney measuring 1.0 x 1.1 x 1.3 cm (previously 1.8 x 0.8 x 1.5 cm) and one near the lower pole measuring 0.8 cm in diameter (previously 0.4). Ultrasound characteristics are consistent with benign renal angiomyolipomas. Benign Bosniak class 1 parapelvic renal cysts are also once again seen. LEFT KIDNEY: 9.3 x 5.7 x 6.1 cm (SAG x AP x TRV). The kidney is normal in size, contour, and echogenicity. Renal cortical thickness is normal. No renal calculi or hydronephrosis. There is a [id number] pole echogenic mass measuring 0.6 x 0.6 x 0.7 cm (previously 0.6 x 0.6 x 0.7 cm) consistent with a benign angiomyolipoma. An additional lower pole echogenic mass seen measuring about the same size not noted previously with characteristics consistent with an AML as well. Multiple benign Bosniak 1 class renal cysts are again seen predominantly parapelvic. US/US retroperitoneal comp IMPRESSION: 1. Bilateral benign Bosniak class 1 renal cysts need no further imaging or followup. 2. Bilateral benign angiomyolipomas. One additional subcentimeter AML on the left is seen on today's study not noted previously. Given that these are all under 2 cm in size. No further follow-up is needed.
== END 2024-02-29 13:47 | disposition home or self-care (01) ==
LOC: HO.US 13:46
PROVIDERS: PCP Internal Medicine; Visit Provider Nurse Practitioner Family
DX: N39.0 Urinary tract infection, site not specified (principal); D17.71 Benign lipomatous neoplasm of kidney
CPT/HCPCS: 76770

== ENCOUNTER 2024-03-02 08:55 | Outpatient (AMB) | payer MEDICARE, SELFPAY ==
--- NOTE | 2024-03-02 08:57 | A.OFFVIS_ITS ---
Intake Visit Reasons: 6m/US Intake Note: Patient is present for 6m/US Urology Medication:estradiol Antibiotic Allergy:none Blood Thinner:aspirin Last PVR: 14ml's Today's PVR:0ml's [employer] Required: No Allergies latex [LATEX] Allergy (Unknown, Verified 03/02/24 17:36) RASH NARCOTICS Adverse Reaction (Intermediate, Uncoded 03/02/24 17:36) NAUSEA AND VOMITTING Medication List - Last Reconciled 03/02/24 by NILAY Fierro- aspirin (Adult Low Dose Aspirin) 81 mg PO DAILY atorvastatin 10 mg PO DAILY blood sugar diagnostic As directed calcium carbonate (Calcium 600) 600 mg PO BID 30 days cyclosporine 0.05% (Restasis) drps ophthalmic (eye) estradiol 10 mcg vaginal 2XW 28 days famotidine 20 mg PO BID hydrochlorothiazide 12.5 mg PO DAILY lancets As directed lancets (OneTouch Delica Plus Lancet) As directed sulfamethoxazole-trimethoprim 800-160 mg (Bactrim DS) 1 tab PO BID 7 days valsartan 160 mg PO DAILY HPI Comments Details: Alexa is a pleasant 73 year old female patient of Dr. Fragoso. 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 She presents to the office today for follow-up of her genitourinary urinary symptoms of menopause, angiomyolipoma and recurring UTIs. In discussion with the patient today she reports to be doing and feeling well. She reports since her last office visit here approximately 6 months ago she has not experienced any urinary tract infections and or UTI like symptoms. Recent retroperitoneal ultrasound results reviewed with the patient today. Bilateral benign Bosniak class 1 renal cyst which require no follow-up imaging per radiology report. Bilateral benign angiolipoma is 1 additional subcentimeter AML on the left sinus seen on today's study not noted previously. Given that these are all under 2 cm in size no further follow-up imaging is needed per radiology report. She discusses her ongoing medical issues with her ex- and daughter. She reports her daughter will soon be undergoing kidney transplant as she has become a recent dialysis patient. She otherwise denies urinary urgency, urinary frequency, incontinence, nocturia, hematuria, dysuria, foul smelling urine, changes to urinary stream, flank pain, fever, and or chills. She is happy with her current voiding parameters. In office urinalysis results reviewed with the patient today. PVR 0 mLs. 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 She reports compliance with Vagifem tablets as prescribed. She otherwise offers no issues or concerns at this time. [facility] Medical History Angiomyolipoma of both kidneys Dyslipidemia Diabetes type 2, uncontrolled Osteoporosis Primary hyperparathyroidism DVT (deep venous thrombosis) Iron deficiency anemia Surgical History History of total left hip replacement Hx of parathyroidectomy Hx of repair of left rotator cuff History of partial hysterectomy Hx of gastric bypass Hx of cholecystectomy Family History Father Lung cancer Mother Alzheimer's dementia Social History Household Members: Significant Other [facility]: [facility] Do you presently have visiting nurse or other home services: No Alcohol intake: never Patient Tobacco Use Status: Never used Tobacco service: No Current occupational status: retired Review of Systems Const Reports as per HPI Eyes Reports no additional complaints ENT Reports no additional complaints Card Reports as per HPI Resp Reports no additional complaints GI Reports no additional complaints Reports as per HPI Musc Reports as per HPI Neuro Reports no additional complaints Psych Reports no additional complaints Endo Reports as per HPI Physical Exam Const General: cooperative, healthy appearing, comfortable, no acute distress, well developed, alert and awake Orientation/consciousness: patient oriented x3 Limitations: no limitations HEENT Head: Yes normal to inspection, Yes normocephalic and Yes atraumatic Ears: hearing grossly normal bilaterally Eyes General: appearance normal, both eyes and all related structures Neck Neck: Yes normal visual inspection and Yes trachea midline Chest Chest palpation & inspection: normal inspection of the chest Resp Effort & Inspection: normal respiratory effort and able to speak in complete sentences Cardio Rate: regular rate GI Inspection: Yes normal to inspection General: Yes no CVA tenderness Back/Spine/Pelvis Back: no CVA tenderness Skin General skin exam: no rashes or lesions noted Neuro General: patient oriented x3 Extrem General: Yes normal to inspection Psych Appearance: grossly normal and well kempt Mental Status: mental status grossly normal Speech and movement: Normal speech and movement present and Clear speech present Affect: normal affect Attitude: cooperative Thought process: Normal thought process present Thought content: Normal thought content present Insight: Fair insight present (Psych) Judgement: Fair judgement present (Psych) Results AMB Urinalysis, Automated UA Leukoctes 125 Ben/uL Last Edit by TREY Aleman on 03/02/24 09:15 UA Nitrite Negative Last Edit by TREY Aleman on 03/02/24 09:15 UA Urobilinogen 0.2 mg/dL Last Edit by Kim Mckeon CCM on 03/02/24 09:1 5 UA Protein 0 mg/dL Last Edit by TREY Aleman on 03/02/24 09:15 UA pH 6.0 Last Edit by Kim Mckeon CCM on 03/02/24 09:15 UA Blood 0 Feliciano/uL Last Edit by Kim Mckeon CCM on 03/02/24 09:15 UA Specific [place] 1.020 Last Edit by Kim Mckeon CCM on 03/02/24 09: 15 UA Ketone Negative Last Edit by Kim Mckeon CCM on 03/02/24 09:15 UA Bilirubin 0 mg/dL Last Edit by TREY Aleman on 03/02/24 09:15 UA Glucose 0 mg/dL Last Edit by Kim Mckeon CCM on 03/02/24 09:15 Results Reviewed Results Reviewed: Laboratory Last Values Urine pH (Auto) 6.0 03/02/24 09:14 Specific [place] (Auto) 1.020 03/02/24 09:14 Urine Protein (Auto) 0 mg/dL 03/02/24 09:14 Glucose (UA)(Auto) 0 mg/dL 03/02/24 09:14 Urine Ketones (Auto) Negative 03/02/24 09:14 Urine Blood (Auto) 0 Feliciano/uL 03/02/24 09:14 Urine Nitrite (Auto) Negative 03/02/24 09:14 Urine Bilirubin (Auto) 0 mg/dL 03/02/24 09:14 Urine Urobilinogen (Auto) 0.2 mg/dL 03/02/24 09:14 Leukocyte Esterase (Auto) 125 Ben/uL 03/02/24 09:14 Date of Service: 02/29/24 Procedure(s): US retroperitoneal comp FINDINGS: RIGHT KIDNEY: 10.4 x 5.2 x 6.0 cm (SAG x AP x TRV). The kidney is normal in size, contour, and echogenicity. Renal cortical thickness is normal. No hydronephrosis. Two hyperechoic, echogenic renal masses are again seen, one in the mid kidney measuring 1.0 x 1.1 x 1.3 cm (previously 1.8 x 0.8 x 1.5 cm) and one near the lower pole measuring 0.8 cm in diameter (previously 0.4). Ultrasound characteristics are consistent with benign renal angiomyolipomas. Benign Bosniak class 1 parapelvic renal cysts are also once again seen. LEFT KIDNEY: 9.3 x 5.7 x 6.1 cm (SAG x AP x TRV). The kidney is normal in size, contour, and echogenicity. Renal cortical thickness is normal. No renal calculi or hydronephrosis. There is a tts-gg-apgrm pole echogenic mass measuring 0.6 x 0.6 x 0.7 cm (previously 0.6 x 0.6 x 0.7 cm) consistent with a benign angiomyolipoma. An additional lower pole echogenic mass seen measuring about the same size not noted previously with characteristics consistent with an AML as well. Multiple benign Bosniak 1 class renal cysts are again seen predominantly parapelvic. IMPRESSION: 1. Bilateral benign Bosniak class 1 renal cysts need no further imaging or followup. 2. Bilateral benign angiomyolipomas. One additional subcentimeter AML on the left is seen on today's study not noted previously. Given that these are all under 2 cm in size. No further follow-up is needed. Assessment & Plan Assessment & Plan (1) Genitourinary syndrome of menopause: Code(s): N95.8 - Other specified menopausal and perimenopausal disorders Category: Medical (2) Recurrent UTI: Code(s): N39.0 - Urinary tract infection, site not specified Category: Medical (3) Angiomyolipoma of both kidneys: Code(s): D17.71 - Benign lipomatous neoplasm of kidney Category: Medical (4) Renal cyst: Code(s): N28.1 - Cyst of kidney, acquired Category: Medical Plan In office urinalysis results reviewed with the patient today; as noted above. PVR 0 mL. Recent retroperitoneal ultrasound results reviewed with the patient today; as noted above. Patient currently denies any bothersome urinary issues or concerns. She reports be happy with current voiding parameters. Continue Vagifem as discussed and prescribed. P.r.n. prescription provided for antibiotic therapy as patient will have upcoming travel. Follow-up in 6 months; if not sooner with any issues, concerns, and or questions. Orders: Orders AMB Urinalysis Automated 03/02/24 Z13.9 - Encounter for screening, unspecified Medications: New sulfamethoxazole-trimethoprim 800-160 mg (Bactrim DS) 1 tab PO BID 14 tabs 0RF 7 days N39.0 - Urinary tract infection, site not specified Patient Instructions: The patient had an opportunity to ask questions regarding the treatment plan. All questions were answered. Physical exam, labs, and imaging were discussed and reviewed in detail. As well as risks, benefits, and discussion of treatment choices. No major barriers to understanding were identified. The patient expressed understanding and agreement with the above treatment plan. The patient was made aware they should contact our office by phone for worsening of their current condition, the appearance of new symptoms, or with any questions or concerns. Compliance is encouraged with any medications and follow up testing that is ordered. It is a privilege to be allowed the opportunity to participate in? your urological care.? Again, if you have any questions or concerns If you have any questions or concerns please do not hesitate to contact me. The office is [phone]. This note is constructed using voice recognition software. While every effort has been made to ensure accuracy cad specialist errors may have been included. Yours sincerely, BOY Fierro Coding Level of Care Code Est Pt Level 4 (43178) Complex EM visit Add On G2211 Diagnoses Genitourinary syndrome of menopause N95.8 Recurrent UTI N39.0 Angiomyolipoma of both kidneys D17.71 Renal cyst N28.1
== END 2024-03-02 09:47 | disposition home or self-care (01) ==
PROVIDERS: PCP Internal Medicine; Visit Provider Nurse Practitioner Family
DX: N95.8 Other specified menopausal and perimenopausal disorders (principal); N39.0 Urinary tract infection, site not specified; D17.71 Benign lipomatous neoplasm of kidney; N28.1 Cyst of kidney, acquired
CPT/HCPCS: 99214; G2211

== ENCOUNTER → 2024-03-02 08:55 | Outpatient (BNVA) | payer MEDICARE, SELFPAY | PROVIDERS: PCP Internal Medicine; Visit Provider Nurse Practitioner Family | DX: N95.8 Other specified menopausal and perimenopausal disorders (principal); N39.0 Urinary tract infection, site not specified; D17.71 Benign lipomatous neoplasm of kidney; N28.1 Cyst of kidney, acquired | CPT/HCPCS: 81003; 99212 ==

== ENCOUNTER 2024-08-01 09:34 | Outpatient (AMB) | payer MEDICARE, SELFPAY ==
--- NOTE | 2024-08-01 09:37 | MHC.OFFVIS ---
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 Allergies latex [LATEX] Allergy (Unknown, Verified 08/01/24 23:28) RASH NARCOTICS Adverse Reaction (Intermediate, Uncoded 08/01/24 23:28) NAUSEA AND VOMITTING Medication List - Last Reconciled 08/01/24 by NILAY Fierro- aspirin (Adult Low Dose Aspirin) 81 mg PO DAILY atorvastatin 10 mg PO DAILY blood sugar diagnostic As directed calcium carbonate (Calcium 600) 600 mg PO BID 30 days cyclosporine 0.05% (Restasis) drps ophthalmic (eye) estradiol 10 mcg vaginal 2XW 28 days famotidine 20 mg PO BID hydrochlorothiazide 12.5 mg PO DAILY lancets As directed lancets (OneTouch Delica Plus Lancet) As directed valsartan 160 mg PO DAILY [vitamin b12 PO] HPI Comments Details: Alexa is a pleasant 74 year old female patient of Dr. Fragoso. 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 She presents to the office today for follow-up of her genitourinary urinary symptoms of menopause, angiomyolipoma and recurring UTIs. In discussion with the patient today she reports to be doing and feeling well. She reports since her last office visit here approximately 6 months ago she has not experienced any urinary tract infections and or UTI like symptoms. She discusses and becomes tearful throughout today's visit as her daughter has recently underwent renal transplant. She reports daughter's 2 weeks status post renal transplant and is doing well and feels thankful. She otherwise denies any bothersome urinary issues or concerns at this time. In office urinalysis results reviewed with the patient today. PVR 12 mL. Previous workup has included a retroperitoneal ultrasound 03/23 noting bilateral benign Bosniak class 1 renal cyst which require no follow-up imaging per radiology report. Bilateral benign angiolipoma is 1 additional subcentimeter AML on the left sinus seen on today's study not noted previously. Given that these are all under 2 cm in size no further follow-up imaging is needed per radiology report. She denies urinary urgency, urinary frequency, incontinence, nocturia, hematuria, dysuria, foul smelling urine, changes to urinary stream, flank pain, fever, and or chills. She is happy with her current voiding parameters. She reports compliance with Vagifem tablets as prescribed. She otherwise offers no issues or concerns at this time. [facility] Medical History Angiomyolipoma of both kidneys Dyslipidemia Diabetes type 2, uncontrolled Osteoporosis Primary hyperparathyroidism DVT (deep venous thrombosis) Iron deficiency anemia Surgical History History of total left hip replacement Hx of parathyroidectomy Hx of repair of left rotator cuff History of partial hysterectomy Hx of gastric bypass Hx of cholecystectomy Family History Father Lung cancer Mother Alzheimer's dementia Social History Household Members: Significant Other [facility]: [facility] Do you presently have visiting nurse or other home services: No Alcohol intake: never Patient Tobacco Use Status: Never used Tobacco service: No Current occupational status: retired Review of Systems Const Reports as per HPI Eyes Reports no additional complaints ENT Reports no additional complaints Card Reports as per HPI Resp Reports no additional complaints GI Reports no additional complaints Reports as per HPI Musc Reports as per HPI Neuro Reports no additional complaints Psych Reports no additional complaints Endo Reports as per HPI Physical Exam Const General: cooperative, healthy appearing, comfortable, no acute distress, well developed, alert and awake Orientation/consciousness: patient oriented x3 Limitations: no limitations HEENT Head: Yes normal to inspection, Yes normocephalic and Yes atraumatic Ears: hearing grossly normal bilaterally Eyes General: appearance normal, both eyes and all related structures Neck Neck: Yes normal visual inspection and Yes trachea midline Chest Chest palpation & inspection: normal inspection of the chest Resp Effort & Inspection: normal respiratory effort and able to speak in complete sentences Cardio Rate: regular rate GI Inspection: Yes normal to inspection General: Yes no CVA tenderness Back/Spine/Pelvis Back: no CVA tenderness Skin General skin exam: no rashes or lesions noted Neuro General: patient oriented x3 Extrem General: Yes normal to inspection Psych Appearance: grossly normal and well kempt Mental Status: mental status grossly normal Speech and movement: Normal speech and movement present and Clear speech present Affect: normal affect Attitude: cooperative Thought process: Normal thought process present Thought content: Normal thought content present Insight: Fair insight present (Psych) Judgement: Fair judgement present (Psych) Office Procedures Post Void Residual Post Residual Void Post Void Residual (PVR): 12 [id number] Void Residual by ultrasound Results AMB Urinalysis, Automated UA Leukoctes 125 Ben/uL Last Edit by [employer] Manzo on 08/01/24 10:18 UA Nitrite Last Edit by Lavish Skatedilcia Manzo on 08/01/24 10:18 UA Urobilinogen 0.2 mg/dL Last Edit by [email or web address] on 08/01/24 10:18 UA Protein 0 mg/dL Last Edit by [email or web address] on 08/01/24 10:18 UA pH 5.5 Last Edit by [employer] on 08/01/24 10:18 UA Blood 0 Feliciano/uL Last Edit by [email or web address] on 08/01/24 10:18 UA Specific [place] 1.020 Last Edit by [email or web address] on 08/01/24 10:18 UA Ketone Last Edit by [email or web address] on 08/01/24 10:18 UA Bilirubin 0 mg/dL Last Edit by [email or web address] on 08/01/24 10:18 UA Glucose 0 mg/dL Last Edit by [employer] on 08/01/24 10:18 Results Reviewed Results Reviewed: Laboratory Last Values Urine pH (Auto) 5.5 08/01/24 10:15 Specific [place] (Auto) 1.020 08/01/24 10:15 Urine Protein (Auto) 0 mg/dL 08/01/24 10:15 Glucose (UA)(Auto) 0 mg/dL 08/01/24 10:15 Urine Blood (Auto) 0 Feliciano/uL 08/01/24 10:15 Urine Bilirubin (Auto) 0 mg/dL 08/01/24 10:15 Urine Urobilinogen (Auto) 0.2 mg/dL 08/01/24 10:15 Leukocyte Esterase (Auto) 125 Ben/uL 08/01/24 10:15 Assessment & Plan Assessment & Plan (1) Renal cyst: Code(s): N28.1 - Cyst of kidney, acquired Category: Medical (2) Genitourinary syndrome of menopause: Code(s): N95.8 - Other specified menopausal and perimenopausal disorders Category: Medical (3) Recurrent UTI: Code(s): N39.0 - Urinary tract infection, site not specified Category: Medical (4) Angiomyolipoma of both kidneys: Code(s): D17.71 - Benign lipomatous neoplasm of kidney Category: Medical Plan In office urinalysis results reviewed with the patient today; as noted above. PVR 12 mL. Patient currently denies any bothersome urinary issues or concerns. She reports be happy with current voiding parameters. Continue Vagifem as discussed and prescribed. Will obtain renal ultrasound in 6 months Follow-up in 6 months with imaging and PVR; if not sooner with any issues, concerns, and or questions. Orders: Orders AMB Post Void Residual by ultrasound Today N39.0 - Urinary tract infection, site not specified AMB Urinalysis Automated Today Z13.9 - Encounter for screening, unspecified Patient Instructions: The patient had an opportunity to ask questions regarding the treatment plan. All questions were answered. Physical exam, labs, and imaging were discussed and reviewed in detail. As well as risks, benefits, and discussion of treatment choices. No major barriers to understanding were identified. The patient expressed understanding and agreement with the above treatment plan. The patient was made aware they should contact our office by phone for worsening of their current condition, the appearance of new symptoms, or with any questions or concerns. Compliance is encouraged with any medications and follow up testing that is ordered. It is a privilege to be allowed the opportunity to participate in? your urological care.? Again, if you have any questions or concerns If you have any questions or concerns please do not hesitate to contact me. The office is [phone]. This note is constructed using voice recognition software. While every effort has been made to ensure accuracy mobile equipment servicer errors may have been included. Yours sincerely, BOY Fierro Coding Level of Care Code Est Pt Level 3 (21408) Complex EM visit Add On G2211 Diagnoses Renal cyst N28.1 Genitourinary syndrome of menopause N95.8 Recurrent UTI N39.0 Angiomyolipoma of both kidneys D17.71 CPT Codes Post Residual Void - PVR CPT Code: 23989-Kdww Void Residual by ultrasound ([id number])
== END 2024-08-01 10:31 | disposition home or self-care (01) ==
PROVIDERS: PCP Internal Medicine; Visit Provider Nurse Practitioner Family
DX: N28.1 Cyst of kidney, acquired (principal); N95.8 Other specified menopausal and perimenopausal disorders; N39.0 Urinary tract infection, site not specified; D17.71 Benign lipomatous neoplasm of kidney
CPT/HCPCS: 99213; G2211

== ENCOUNTER → 2024-08-01 09:34 | Outpatient (BNVA) | payer MEDICARE, SELFPAY | PROVIDERS: PCP Internal Medicine; Visit Provider Nurse Practitioner Family | DX: N39.0 Urinary tract infection, site not specified (principal); N28.1 Cyst of kidney, acquired; N95.8 Other specified menopausal and perimenopausal disorders; D17.71 Benign lipomatous neoplasm of kidney | CPT/HCPCS: 51798; 81003; 99212 ==

== ENCOUNTER 2024-08-17 09:56 | Outpatient (REF) | payer MEDICARE, SELFPAY ==
--- OUTSIDE RECORDS SUMMARY | 2024-08-17 10:02 | XMS_ITS ---
Author Name [facility] Organization Unknown History of Medication Use Medication Directions Dispensed Refills Start Date End Date Stat betamethasone acetate-betamethasone sodium phosphate (CELESTONE) injection 3 mg 3 mg, Intra-articular , Once PRN Procedure, Starting on Madonna 12/24/23 at 0930, For 1 dose 12/30/2023 completed metFORMIN (GLUCOPHAGE-XR) 500 MG 24 hr tablet Take 2 tablets (1,000 mg total) by mouth every morning with breakfast. 08/19/2022 aborted cefadroxil (DURICEF) 500 mg capsule Take 1 capsule (500 mg total) by mouth 2 (two) times a day. 03/21/2023 aborted methocarbamol (ROBAXIN) 500 MG tablet Take 1 tablet (500 mg total) by mouth 4 (four) times a day. 03/21/2023 aborted meloxicam (MOBIC) 15 MG tablet Take 1 tablet (15 mg total) by mouth daily. 03/21/2023 aborted aspirin enteric coated (ECOTRIN LOW STRENGTH) 81 MG EC tablet Take by mouth every morning. 08/19/2022 active acetaminophen (TYLENOL) 325 MG tablet Take 2 tablets (650 mg total) by mouth 4 times daily (every 6 hours) as needed for mild pain. 03/21/2023 aborted Calcium Carbonate (CALTRATE 600 PO) Take 2 tablets by mouth every morning. 08/19/2022 active valsartan (DIOVAN) 160 MG tablet Take 1 tablet (160 mg total) by mouth every morning. 08/19/2022 active Multiple Vitamins-Minerals (PreserVision AREDS 2) Chew Tab Chew. 08/19/2022 aborted glucose blood (ActivIdentityTouch Ultra) test strip Inject 1 each under the skin. 08/19/2022 active famotidine (PEPCID) 20 MG tablet Take 1 tablet (20 mg total) by mouth every morning. 08/19/2022 active atorvastatin (LIPITOR) 10 MG tablet Take 1 tablet (10 mg total) by mouth every morning. 08/19/2022 active meloxicam (MOBIC) 7.5 MG tablet Take 1 tablet (7.5 mg total) by mouth 2 (two) times a day with meals. 09/24/2023 aborted enoxaparin (LOVENOX) 40 MG/0.4ML injection Inject 0.4 mL (40 mg total) under the skin daily. 03/21/2023 aborted hydrochlorothiazide (HYDRODIURIL) 12.5 MG tablet Take 1 tablet (12.5 mg total) by mouth every morning. 08/19/2022 active ascorbic acid (VITAMIN C) 250 MG Chew Tab Chew 1 tablet (250 mg total) every morning. 08/19/2022 aborted Problems Problem Status Onset Date Problem Type Date of Resolution Source Primary osteoarthritis of left knee active EncounterDiagnosisAct HHT HLD (hyperlipidemia) active ProblemAct [facility] Status post total right knee replacement active EncounterDiagnosisAct [facility] Diabetes mellitus active 2022-04-08 ProblemAct [facility] Failed total knee, right, initial encounter active 2022-09-05 ProblemAct [facility] Low back pain active 2023-07-16 ProblemAct [facility] T Hypertension active Problem[facility] Immunizations Vaccine Date Source Lot Number Status Influenza High-Dose Quadriva lent,(FLUZONE HIGH-DOSE), Perservative Free IM 0.7 mL 65 years and older 07/06/2022 [facility] [id number] completed Influenza High-Dose Quadriva lent,(FLUZONE HIGH-DOSE), Perservative Free IM 0.7 mL 65 years and older 06/19/2020 [facility] completed
--- OUTSIDE RECORDS SUMMARY | 2024-08-17 10:03 | XMS_ITS | Clinical Summary ---
Author Organization Unknown Care Team Providers Care Television Production Assistant Name Role Phone RAIN QUINTERO Unavailable Marbella MUSE RN, SORAYA Unavailable Unavailable DUSTIN PT, RAIN Unavailable Unavailable CALEB LICENSED MASTER SOCIAL WORKER, KRISTAN Unavailable Unavailab le Payers Payer Name Policy Type Policy Number Effective Date Expira tion Date [id number] Problems Condition Name Condition Details Condition Category Status Onset Date Resolution Date Last Treatment Date Treating Clinician Comments MECH LOOSENING OF INTERNAL RIGHT KNEE PROSTHETIC JOINT, SUBS Active 09-05 00:00: 00 TYPE 2 DIABETES MELLITUS WITHOUT COMPLICATION S Active 04-08 00:00: 00 ESSENTIAL (PRIMARY) HYPERTENSION Active 08-31 00:00: 00 AGE-RELATED OSTEOPOROSIS W/O CURRENT PATHOLOGICAL FRACTURE Active 08-31 00:00: 00 SLEEP APNEA, UNSPECIFIED Active 08-31 00:00: 00 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 TS Active 09-06 00:00: 00 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 (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) USE OF ASPIRIN Active 09-06 00:00: 00 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 (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. .... Propensity to adverse reactions Active 09-09 06:06: 30 OPIOID ANALGESICS Propensity to adverse reactions Active 09-09 06:06: 47 OXYCODONE Propensity to adverse reactions Active 09-09 06:06: 57 TRAMADOL Propensity to adverse reactions Active 09-09 06:07: 09 SCOPOLAMINE Propensity to adverse reactions Active 09-09 06:07: 21 Medications Ordered Medication Name Filled Medication Name Start Date Stop Date Current Medication? Ordering Clinician Indication Dosage Frequency Signature (SIG) Comments Components acetaminoph en 325 mg tablet 09-06 00:00: 00 Yes [id number] MILD PAIN 2 tablet EVERY 6 HOURS 2 tablet EVERY 6 HOURS (route: oral) Med Classific ation: Analgesic , Anti-infl ammatory or Antipyret ic Adult Aspirin Regimen 81 mg tablet,eliane yed release 09-06 00:00: 00 Yes [id number] BLOOD THINNER 1 tablet DAILY 1 tablet DAILY (route: oral) Med Classific ation: Hematolog ical Agents atorvastati n 10 mg tablet 09-06 00:00: 00 Yes [id number] CHOLESTEROL 1 tablet DAILY 1 tablet DAILY (route: oral) Med Classific ation: Cardiovas cular Therapy Agents cefadroxil 500 mg capsule 09-06 00:00: 00 09-19 23:59 :00 No [id number] PREVENT INFECTION 1 capsule 2 TIMES DAILY 1 capsule 2 TIMES DAILY (route: oral) Med Classific ation: Anti-Infe ctive Agents enoxaparin 40 mg/0.4 mL subcutaneou s syringe 09-06 00:00: 00 Yes [id number] PREVENT BLOOD CLOTS 40 mg DAILY 40 mg DAILY (route: subcutaneo us) Med Classific ation: Hematolog ical Agents hydrochloro thiazide 12.5 mg capsule 09-06 00:00: 00 Yes [id number] FLUID 1 capsule DAILY 1 capsule DAILY (route: oral) Med Classific ation: Cardiovas cular Therapy Agents meloxicam 15 mg tablet 09-06 00:00: 00 Yes [id number] ANTI INFLAMMATOR Y 1 tablet EVERY PM 1 tablet EVERY PM (route: oral) Med Classific ation: Analgesic , Anti-infl ammatory or Antipyret ic metformin 500 mg tablet 09-06 00:00: 00 Yes [id number] DIABETES 2 tablet EVERY AM 2 tablet EVERY AM (route: oral) Med Classific ation: Endocrine PreserVisio n AREDS-2 250 mg-90 mg-40 mg-1 mg capsule 09-06 00:00: 00 Yes [id number] SUPPLEMENT 1 capsule DAILY 1 capsule DAILY (route: oral) Med Classific ation: Alternati ve Therapy valsartan 160 mg tablet 09-06 00:00: 00 Yes [id number] HTN 1 tablet EVERY AM 1 tablet EVERY AM (route: oral) Med Classific ation: Cardiovas cular Therapy Agents Vitamin C 250 mg tablet 09-06 00:00: 00 Yes [id number] SUPPLEMENT 1 tablet DAILY 1 tablet DAILY (route: oral) Med Classific ation: Electroly te Balance-N utritiona l Products Immunizations Ordered Immunization Name Filled Immunization Name Date Status Comments Refusal Reason INFLUENZA, TIV (INACTIVATED) 2022-07-06 00:00:00 DOSE #2, COVID-19 VACCINE 2020-12-05 00:00:00 Vital Signs Vital Name Observation Time Observation Value Commen ts Temperature 2022-09-17 07:34:00.000 97.7 [degF] Temperature 2022-09-16 10:59:00.000 97.2 [degF] Temperature 2022-09-15 10:53:00.000 98 [degF] Temperature 2022-09-11 08:39:00.000 98.1 [degF] Temperature 2022-09-09 09:03:00.000 97.6 [degF] Temperature 2022-09-08 13:39:00.000 97.1 [degF] BMI (%) 2022-09-08 13:39:00.000 30 kg/m2 Height 2022-09-08 13:39:00.000 60 [in_us] Pulse 2022-09-17 07:34:00.000 69 /min Pulse 2022-09-16 10:59:00.000 72 /min Pulse 2022-09-15 10:53:00.000 68 /min Pulse 2022-09-11 08:39:00.000 74 /min Pulse 2022-09-09 09:03:00.000 80 /min Pulse 2022-09-08 13:39:00.000 74 /min O2 Saturation (%) 2022-09-16 10:59:00.000 97 % O2 Saturation (%) 2022-09-15 10:53:00.000 94 % O2 Saturation (%) 2022-09-11 08:39:00.000 97 % O2 Saturation (%) 2022-09-09 09:03:00.000 96 % O2 Saturation (%) 2022-09-08 13:39:00.000 97 % Respirations 2022-09-17 07:34:00.000 16 /min Respirations 2022-09-16 10:59:00.000 18 /min Respirations 2022-09-15 10:53:00.000 18 /min Respirations 2022-09-11 08:39:00.000 18 /min Respirations 2022-09-09 09:03:00.000 16 /min Respirations 2022-09-08 13:39:00.000 18 /min Weight (lbs) 2022-09-08 13:39:00.000 155 [lb_av] Systolic Blood Pressure 2022-09-17 07:34:00.000 132 mm [Hg] Systolic Blood Pressure 2022-09-16 10:59:00.000 122 mm [Hg] Systolic Blood Pressure 2022-09-15 10:53:00.000 160 mm [Hg] Systolic Blood Pressure 2022-09-11 08:39:00.000 133 mm [Hg] Systolic Blood Pressure 2022-09-09 09:03:00.000 150 mm [Hg] Systolic Blood Pressure 2022-09-08 13:39:00.000 142 mm [Hg] Diastolic Blood Pressure 2022-09-17 07:34:00.000 68 mm [Hg] Diastolic Blood Pressure 2022-09-16 10:59:00.000 64 mm [Hg] Diastolic Blood Pressure 2022-09-15 10:53:00.000 83 mm [Hg] Diastolic Blood Pressure 2022-09-11 08:39:00.000 55 mm [Hg] Diastolic Blood Pressure 2022-09-09 09:03:00.000 66 mm [Hg] Diastolic Blood Pressure 2022-09-08 13:39:00.000 70 mm [Hg] Plan of Treatment Planned Activity Planned Date Details Comments Future Scheduled Test SKILLED NU RSE TO ASSESS, EVALUATE, AND DEVELOP AN INDIVIDUALIZED PLAN OF CARE. AGENCY MAY ACCEPT ORDERS FROM CONSULTING PHYSICIANS, DR. MOSES RAMIREZ. SN TO OBSERVE/ASSESS RISK FOR FALLS AND INSTRUCT IN FALL PREVENTION, HOME SAFETY, MEDICATION MANAGEMENT, INFECTION PREVENTION, AND NUTRITION MANAGEMENT. SN MAY PERFORM O2 SATURATION LEVEL ON ADMISSION AND PRN TO ASSESS PATIENT, WITH NOTIFICATION TO THE PHYSICIAN IF SATURATION IS 90% IN THE ABSENCE OF MORE SPECIFIC PARAMETERS FROM THE PHYSICIAN. AGENCY MAY PERFORM A RESUMPTION OF CARE VISIT FOLLOWING ANY HOSPITAL ADMISSION. SKILLED NURSE TO ASSESS/EVALUATE CO-MORBID CONDITIONS AND ANY NEW CONDITIONS THAT PRESENT THEMSELVES DURING THIS EPISODE TO IDENTIFY CHANGES AND INTERVENE TO MINIMIZE COMPLICATIONS. [code = SKILLED NURSE TO ASSESS, EVALUATE, AND DEVELOP AN INDIVIDUALIZED PLAN OF CARE. AGENCY MAY ACCEPT ORDERS FROM CONSULTING PHYSICIANS, DR. MOSES RAMIREZ. SN TO OBSERVE/ASSESS RISK FOR FALLS AND INSTRUCT IN FALL PREVENTION, HOME SAFETY, MEDICATION MANAGEMENT, INFECTION PREVENTION, AND NUTRITION MANAGEMENT. SN MAY PERFORM O2 SATURATION LEVEL ON ADMISSION AND PRN TO ASSESS PATIENT, WITH NOTIFICATION TO THE PHYSICIAN IF SATURATION IS 90% IN THE ABSENCE OF MORE SPECIFIC PARAMETERS FROM THE PHYSICIAN. AGENCY MAY PERFORM A RESUMPTION OF CARE VISIT FOLLOWING ANY HOSPITAL ADMISSION. SKILLED NURSE TO ASSESS/EVALUATE CO-MORBID CONDITIONS AND ANY NEW CONDITIONS THAT PRESENT THEMSELVES DURING THIS EPISODE TO IDENTIFY CHANGES AND INTERVENE TO MINIMIZE COMPLICATIONS.] Future Scheduled Test MEDICATION MANAGEMENT; SKILLED NURSE TO REVIEW MEDICATIONS FOR INTERACTIONS, EFFECTIVENESS OF DRUG THERAPY, AND SIGNS/SYMPTOMS OF ADVERSE REACTIONS. MAY INSTRUCT AND REINFORCE MEDICATION TEACHING RELATED TO THE USE OF MEDICATIONS, DOSAGE, FREQUENCY, PURPOSE, SIDE EFFECTS, AND TO REPORT COMPLICATIONS. [code = MEDICATION MANAGEMENT; SKILLED NURSE TO REVIEW MEDICATIONS FOR INTERACTIONS, EFFECTIVENESS OF DRUG THERAPY, AND SIGNS/SYMPTOMS OF ADVERSE REACTIONS. MAY INSTRUCT AND REINFORCE MEDICATION TEACHING RELATED TO THE USE OF MEDICATIONS, DOSAGE, FREQUENCY, PURPOSE, SIDE EFFECTS, AND TO REPORT COMPLICATIONS.] Future Scheduled Test RISK FOR H OSPITALIZATION; SKILLED NURSE TO INSTRUCT PATIENT/CAREGIVER ON RISK FOR HOSPITALIZATION/EMERGENCY ROOM VISITS, TEACH SIGNS AND SYMPTOMS THAT PUT PATIENT AT RISK, WHEN TO NOTIFY NURSE/PHYSICIAN OF COMPLICATIONS/DECLINE, AND WHEN TO CALL 911. [code = RISK FOR HOSPITALIZATION; SKILLED NURSE TO INSTRUCT PATIENT/CAREGIVER ON RISK FOR HOSPITALIZATION/EMERGENCY ROOM VISITS, TEACH SIGNS AND SYMPTOMS THAT PUT PATIENT AT RISK, WHEN TO NOTIFY NURSE/PHYSICIAN OF COMPLICATIONS/DECLINE, AND WHEN TO CALL 911.] Future Scheduled Test SKILLED NU RSE TO ASSESS RIGHT KNEE INCISION AREA. OCCLUSIVE DRESSING IN PLACE. [code = SKILLED NURSE TO ASSESS RIGHT KNEE INCISION AREA. OCCLUSIVE DRESSING IN PLACE.] Future Scheduled Test PAIN MANAG EMENT; SKILLED NURSE TO OBSERVE, ASSESS, AND PROVIDE EDUCATION ON PAIN MANAGEMENT TECHNIQUES. [code = PAIN MANAGEMENT; SKILLED NURSE TO OBSERVE, ASSESS, AND PROVIDE EDUCATION ON PAIN MANAGEMENT TECHNIQUES.] Future Scheduled Test FALL REDUC TION MANAGEMENT; NURSING TO PROVIDE SKILLED ASSESSMENT, EDUCATION, AND INTERVENTION TO IDENTIFY FALL RISK FACTORS SUCH MEDICATIONS THAT MAY CAUSE DIZZINESS, CHRONIC DISEASES, PSYCHOLOGICAL FACTORS, AND EMPOWER/EDUCATE PATIENT/CAREGIVER TO MINIMIZE FALL RISK. [code = FALL REDUCTION MANAGEMENT; NURSING TO PROVIDE SKILLED ASSESSMENT, EDUCATION, AND INTERVENTION TO IDENTIFY FALL RISK FACTORS SUCH MEDICATIONS THAT MAY CAUSE DIZZINESS, CHRONIC DISEASES, PSYCHOLOGICAL FACTORS, AND EMPOWER/EDUCATE PATIENT/CAREGIVER TO MINIMIZE FALL RISK.] Future Scheduled Test PHYSICAL T HERAPIST TO EVALUATE FOR STRENGTH AND ENDURANCE TRAINING, HEP. [code = PHYSICAL THERAPIST TO EVALUATE FOR STRENGTH AND ENDURANCE TRAINING, HEP.] Future Scheduled Test AGENCY MAY PERFORM A RESUMPTION OF CARE VISIT FOLLOWING ANY HOSPITAL ADMISSION. PHYSICAL THERAPY TO EVALUATE, ASSESS AND MONITOR, PROVIDE SKILLED THERAPEUTIC INTERVENTION, ACTIVITY, EDUCATION, AND TRAINING TO ADDRESS: TRANSFER TRAINING (PT) GAIT TRAINING (PT) NEUROMUSCULAR RE-EDUCATION / BALANCE RETRAINING (PT) THERAPEUTIC EXERCISES (PT) STAIR TRAINING (PT) ENERGY CONSERVATION (PT) OXYGEN SATURATION (PT). NOTIFY MD IF 02SATS BELOW 90% AFTER 10 MIN OF REST. PAIN MANAGEMENT (PT) ORTHOPEDIC SURGICAL AFTERCARE (PT) MAY TEACH PATIENT APPLICATION OF CRYOTHERAPY FOR PAIN AND/OR SWELLING UP TO 20 MIN AT A TIME OVER INCISION/JOINT KNEE REPLACEMENT SELF-MANAGEMENT (PT) IDENTIFY FALL RISK FACTORS AND ESTABLISH HOME EXERCISE PROGRAM TO MINIMIZE FALL RISK. MAY TEACH THE PATIENT FLOOR RECOVERY WHEN CLINICALLY APPROPRIATE (PT) [code = AGENCY MAY PERFORM A RESUMPTION OF CARE VISIT FOLLOWING ANY HOSPITAL ADMISSION. PHYSICAL THERAPY TO EVALUATE, ASSESS AND MONITOR, PROVIDE SKILLED THERAPEUTIC INTERVENTION, ACTIVITY, EDUCATION, AND TRAINING TO ADDRESS: TRANSFER TRAINING (PT) GAIT TRAINING (PT) NEUROMUSCULAR RE-EDUCATION / BALANCE RETRAINING (PT) THERAPEUTIC EXERCISES (PT) STAIR TRAINING (PT) ENERGY CONSERVATION (PT) OXYGEN SATURATION (PT). NOTIFY MD IF 02SATS BELOW 90% AFTER 10 MIN OF REST. PAIN MANAGEMENT (PT) ORTHOPEDIC SURGICAL AFTERCARE (PT) MAY TEACH PATIENT APPLICATION OF CRYOTHERAPY FOR PAIN AND/OR SWELLING UP TO 20 MIN AT A TIME OVER INCISION/JOINT KNEE REPLACEMENT SELF-MANAGEMENT (PT) IDENTIFY FALL RISK FACTORS AND ESTABLISH HOME EXERCISE PROGRAM TO MINIMIZE FALL RISK. MAY TEACH THE PATIENT FLOOR RECOVERY WHEN CLINICALLY APPROPRIATE (PT)] Goal 2022-09-17 Patient Goal - N O ISSUES WITH KNEE, WALK BETTER. Goal Provider Goal - A PLAN OF CARE WILL BE ESTABLISHED THAT MEETS THE PATIENTS NEEDS. PATIENT WILL DEMONSTRATE OXYGEN SATURATION WITHIN NORMAL LIMITS OR PATIENTS OPTIMAL LEVEL ESTABLISHED BY THE PHYSICIAN THROUGHOUT CARE. CHANGES TO CO-MORBID CONDITIONS AND ANY NEW CONDITIONS WILL BE IDENTIFIED AND REPORTED TO THE PHYSICIAN. Goal Provider Goal - PATIENT/CAREGIVER TO VERBALIZE, AND CONSISTENTLY DEMONSTRATE EFFECTIVE, SAFE MANAGEMENT OF MEDICATION INCLUDING KNOWLEDGE OF EFFECTIVENESS, POTENTIAL SIDE EFFECTS AND DRUG REACTIONS AND WHEN TO CONTACT THE APPROPRIATE CARE PROVIDER. PATIENT/CAREGIVER WILL BE ABLE TO VERBALIZE UNDERSTANDING OF MEDICATION REGIMEN AND ACCURATELY TAKE MEDICATIONS PRESCRIBED WITHOUT ADVERSE EFFECTS BY 11/06/22. Goal Provider Goal - PATIENT/CAREGIVER WILL VERBALIZE UNDERSTANDING OF SIGNS AND SYMPTOMS THAT PUT THE PATIENT AT RISK FOR HOSPITALIZATION /EMERGENCY ROOM VISITS, WHEN TO NOTIFY NURSE/PHYSICIAN OF COMPLICATIONS/DECLINE AND WHEN TO CALL 911. Goal Provider Goal - PATIENT / CAREGIVER WILL VERBALIZE / DEMONSTRATE ABILITY TO PERFORM WOUND CARE. WOUND STATUS WILL IMPROVE EVIDENCED BY A DECREASE IN SIZE, DRAINAGE, ABSENCE OF INFECTION, AND DECREASED PAIN BY 11/06/22. Goal Provider Goal - PATIENT / CAREGIVER WILL VERBALIZE / DEMONSTRATE UNDERSTANDING OF PAIN CONTROL MEASURES BY 11/06/22. Goal Provider Goal - PATIENT/CAREGIVER ABLE TO IDENTIFY FALL RISK FACTORS AND IMPLEMENT STRATEGIES TO MINIMIZE FALL RISK. PATIENT/CAREGIVER WILL VERBALIZE/DEMONSTRATE AN ABILITY TO ADHERE TO FALL REDUCTION SELF MANAGEMENT AND LIFE-STYLE CHANGES AT DISCHARGE. PERSONAL GOAL(S) STATED BY PATIENT/CAREGIVER WILL BE MET BY 11/06/22. Goal Provider Goal - PT STG: PATIENT WILL DEMONSTRATE IMPROVED TRANSFERS FROM MIN A TO INDEPENDENT WITHIN 5 WEEKS. PT LTG: PATIENT WILL DEMONSTRATE IMPROVED AMBULATION FROM MIN A TO INDEPENDENT WITH RW WITHIN 9 WEEKS. PT LTG: PATIENT WILL DEMONSTRATE IMPROVED SAFETY NEGOTIATING STAIRS FROM MIN A TO INDEPENDENT WITHIN 9 WEEKS. PT STG: PATIENT WILL DEMONSTRATE INDEPENDENCE IN HOME EXERCISE PROGRAM OF STRENGTHENING EXERCISES BALANCE EXERCISES AND PROGRESSIVE AMBULATION PROGRAM TO ALLOW PATIENT TO CARRY OVER GAINS MADE DURING SKILLED HOME PHYSICAL THERAPY WITHIN 5 WEEKS. PT LTG: PATIENT WILL DEMONSTRATE INCREASED STRENGTH OF RLE FROM 3-/5 TO 3+/5 WITHIN 9 WEEKS. IN ORDER TO RETURN TO INDEPENDENT COMMUNITY MOBILITY SKILLS. PT LTG: PATIENT / CAREGIVER WILL DEMONSTRATE UNDERSTANDING OF ENERGY CONSERVATION MEASURES, EVIDENCED BY INCREASED ACTIVITY TOLERANCE INCREASING FROM ASSISTED HOME MOBILITY TO INDEPENDENT COMMUNITY MOBILITY SKILLS WITHIN 9 WEEKS. PATIENT WILL MAINTAIN OXYGEN SATURATION WITHIN PHYSICIAN ORDERED PARAMETERS THROUGHOUT EPISODE OF CARE PT GOAL: PATIENT/CAREGIVER WILL VERBALIZE UNDERSTANDING OF PAIN MANAGEMENT BY DISCHARGE. PATIENT WILL DEMONSTRATE NORMAL HEALING FOLLOWING SURGERY WITH NO COMPLICATIONS BY DISCHARGE. PT GOAL: PATIENT WILL DEMONSTRATE OPTIMAL OUTCOMES, INCLUDING INCREASED ROM AND STRENGTH FOLLOWING TKA BY DISCHARGE. PATIENT/CAREGIVER WILL DEMONSTRATE ADHERENCE TO FALL REDUCTION SELF MANAGEMENT TO MINIMIZE FALL RISK BY DISCHARGE. Reason for Visit INDEPENDENT WITH USE OF ASSISTIVE DEVICE Encounters Start Date/Time End Date/Time Encounter Type Admission Type Attending [facility] Care [facility] Care Department Encounter ID Discharge Date Discharge Status Discharge Condition Discharge Reason Percent Goals Met 2022-09-08 00:00:00 2022-09-17 00:00:00 Outpatient NEW ADMISSION SORAYA MUSE [facility] [id number] 2022-09-17 00:00:00 DISCHARGE TO HOME OR SELF CARE INDEPENDEN T WITH USE OF ASSISTIVE DEVICE HH ONLY - OUT PATIENT 81.48
== END 2024-08-17 09:57 | disposition home or self-care (01) ==
LOC: HO.US 09:56
PROVIDERS: PCP Internal Medicine; Visit Provider Nurse Practitioner Family
DX: N28.1 Cyst of kidney, acquired (principal); N39.0 Urinary tract infection, site not specified
CPT/HCPCS: 76775

== ENCOUNTER → 2024-11-10 15:38 | Outpatient (BNV) | payer MEDICARE, SELFPAY | PROVIDERS: PCP Internal Medicine; Visit Provider Internal Medicine Medical Oncology | DX: D50.9 Iron deficiency anemia, unspecified (principal); Z86.718 Personal history of other venous thrombosis and embolism | CPT/HCPCS: 99204 ==

== ENCOUNTER 2024-12-26 09:15 | Outpatient (AMB) | payer MEDICARE, SELFPAY ==
--- NOTE | 2024-12-26 09:17 | A.OFFVIS_ITS ---
Vital Signs 12/26/24 09:27 Height 5 ft Weight 119 lb 14.903 oz BMI 23.4 BP 102/60 Blood Pressure Location Lt brachial Position Sitting Pulse 59 Pulse Source Pulse Oximeter Pulse Oximetry (%) 99 Oxygen Delivery Method Room Air Intake Visit Reasons: New patient/ Paget Intake Note: Patient presents for Paget disease. 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 Was previously on Fosomax but stopped about 10 years. Was doing well but has been noticing prominent bones in her head and she is concerned for a relapse [facility] Medical History Angiomyolipoma of both kidneys Dyslipidemia Diabetes type 2, uncontrolled Osteoporosis Primary hyperparathyroidism DVT (deep venous thrombosis) Iron deficiency anemia Surgical History History of total left hip replacement Hx of parathyroidectomy Hx of repair of left rotator cuff History of partial hysterectomy Hx of gastric bypass Hx of cholecystectomy Family History Father Lung cancer Mother Alzheimer's dementia Social History Household Members: Significant [facility] Do you presently have visiting nurse or other home services: No Alcohol intake: never Patient Tobacco Use Status: Never used Tobacco service: No Current occupational status: retired Review of Systems Const Details: Review of Systems Constitutional: Denies fever, chills, weight loss ENT: Denies vision changes, eye pain or eye redness, dental caries, dry mouth GI: Denies nausea, vomiting, diarrhea, abdominal pain, change in BM Pulm: Denies SOB, SPENCE, hemoptysis, wheezing Cards: Denies chest pain, palpitations Skin: Denies Raynaud's, rash, nail changes, photosensitivity, LAP REGULATOR: Denies headaches, weakness, paresthesias, recurrent falls MSK: as per HPI All other systems reviewed and are unremarkable except noted above Physical Exam Vital Signs: Last Vital Signs Pulse 59 12/26/24 09:27 BP 102/60 12/26/24 09:27 Pulse Ox 99 12/26/24 09:27 Oxygen Delivery Method Room Air 12/26/24 09:27 BMI result Body Mass Index 23.4 Vital signs reviewed Physical Examination CONSTITUITIONAL Patient alert and cooperative. Well appearing and in no apparent painful distress HEENT Conjunctiva and sclera clear. ?Pupils equal round and reactive to light. ?No lymphadenopathy. ? ?frontal bossing CHEST/RESPIRATORY SYSTEM Normal respiratory effort and able to speak in complete sentences. ?Clear to auscultation bilaterally. ?No crackles, rales, rhonchi, wheezes heard. CARDIAC SYSTEM Regular rate and rhythm. ?S1 and S2 heard no murmurs. ?Radial pulses intact bilaterally MSK Hands: ?Able to make a fist. No synovitis noted to the MCPs, PIPs or DIPs. ?No tenderness to palpation of these joints. Herbeden's and Bouchards nodes Wrists: ?Full range of motion at the wrists without pain. ?No tenderness to palpation or synovitis noted to the wrists. Elbows: Full range of motion without pain. No tenderness, weakness, swelling, increased warmth or erythema. Shoulders: No tenderness, weakness, swelling, increased warmth or erythema. Knees: ?Full range of motion. ?No tenderness, swelling, increased warmth or erythema.?No effusion or crepitations Ankles: Full range of motion. ?No tenderness, swelling, increased warmth or erythema.? Feet: ?Negative squeeze test. ?No tenderness to palpation or swelling of the MTPs. Tender points:?No tenderness to palpation of the bilateral trapezius, supraspinatus, greater trochanters, anterior costochondral junctions, bilateral gluteal areas, bilateral suboccipital muscle insertions SKIN Skin intact without rashes. Results Reviewed Results Reviewed: Laboratory Tests 11/10/24 16:19 WBC 6.1 RBC 4.61 Hgb 12.7 Hct 37.0 Plt Count 194 Sodium 141 Potassium 3.6 Chloride 108 Carbon Dioxide 23 BUN 21 H Creatinine 0.71 AST 50 H ALT 38 H Alkaline Phosphatase 120 H Assessment & Plan Assessment & Plan (1) Paget disease of bone: Code(s): M88.9 - Osteitis deformans of unspecified bone Category: Medical Plan: #Paget's disease Patient is a 74-year-old female with a history of Paget's disease here today to establish care. Patient diagnosed with Paget's today's about 30 years ago and was on oral bisphosphonates. Has been off treatment for the past 10 years now concern for worsening disease. We will check bone scan as well as blood work including bone alkaline phosphatase Plan - Check NM Bone scan - Labs: CBC, CMP, ESR, CRP, Bone ALP, Procollagen Type I, ANTONIETTA, SPEP - RTC 6 weeks Plan I spent 45 minutes reviewing the record and labs, taking a history, examining the patient, discussing the treatment plan, ordering diagnostic work up and documenting in the medical record Orders: Orders NM bone scan whole body Today M88.9 - Osteitis deformans of unspecified bone Comprehensive Met. Panel Today M88.9 - Osteitis deformans of unspecified bone C Reactive Protein Today M88.9 - Osteitis deformans of unspecified bone Erythrocyte Sedimentation Rate Today M88.9 - Osteitis deformans of unspecified bone Immunofixation, Random Urine Today M88.9 - Osteitis deformans of unspecified bone Protein Electrophoresis, Serum Today M88.9 - Osteitis deformans of unspecified bone Vitamin D 25-OH (D2 and D3) Today M88.9 - Osteitis deformans of unspecified bone Alkaline Phosphatase Bone Today M88.9 - Osteitis deformans of unspecified bone Procollagen Type I Intact N Today M88.9 - Osteitis deformans of unspecified bone Complete Blood Count Auto Diff Today M88.9 - Osteitis deformans of unspecified bone Coding Level of Care Code New Pt Level 4 (59947) Complex EM visit Add On G2211 Diagnoses Paget disease of bone M88.9
[2024-12-26 09:27] VITALS: BP 102/60; PULSE 59; O2SAT 99; BMI 23.4
--- OUTSIDE RECORDS SUMMARY | 2024-12-26 10:06 | XMS_ITS | Encounter Summary ---
Author Organization [facility] Address [address] [place] [address] Care Team Providers Care It Business Systems Analyst Name Role Phone PatricatanmayJorge DO Unavailable [phone] Erlin Fragoso MD Primary Care Provider [phone] Jose Nicolas MD Unavailable [phone] Encounter Details Date Type Department Care Team ([facility] st Contact Info) Description 01/11/2024 Scanned Document [facility] [address] [id number] Adonay Rodriguez MD [address] [place] [id number] Social History Tobacco Use Types Packs/Day Years Used Date Smoking Tobacco: Never Smokeless Tobacco: Never Alcohol Use Standard Drinks/Week Comments Not Currently 0 (1 standard drink = 0.6 oz pur e alcohol) Extremely rare AUDIT-C Answer Date Recorded Q1: How often do you have a drink containing alcohol? Never 09/05/2022 Q2: How many drinks containi ng alcohol do you have on a typical day when you are drinking? Patient does not drink Q3: How often do you have si x or more drinks on one occasion? Never 09/05/2022 Comments Unknown Sex and Gender Information Value Date Recorded Sex Assigned at Female 09/05/2022 7:57 AM EST Legal Sex Female 5:33 PM EDT Gender Identity Female 09/05/2022 7:57 AM EST Sexual Orientation Heterosexual (straight) 09/05 7:57 AM EST documented as of this encounter Plan of Treatment Not on file documented as of this encounter Visit Diagnoses Not on filedocumented in this encounter Care Teams It Business Systems Analyst Relationship Specialty Start Date End Date Erlin Fragoso MD [address] [place] [address] PCP - General Internal Medicine 08/07/22 Jorge Worley DO [address] [place] [id number] Cardiovascular Disease 08/07/22 Jose Nicolas MD [address] [place] [id number] Surgery, Orthopedic 08/07/22 documented as of this encounter
--- OUTSIDE RECORDS SUMMARY | 2024-12-26 10:06 | XMS_ITS | Encounter Summary ---
Author Organization [facility] Address [address] [place] [address] Care Team Providers Care Insurance Administrator Name Role Phone PatricatanmayJorge DO Unavailable [phone] Erlin Fragoso MD Primary Care Provider [phone] Jose Nicolas MD Unavailable [phone] Encounter Details Date Type Department Care Team ([facility] st Contact Info) Description 08/15/2024 Scanned Document [facility] [address] [phone] Adonay Rodriguez MD [address] [place] [address] [id number] Social History Tobacco Use Types Packs/Day Years [...] on filedocumented in this encounter Care Teams Insurance Administrator Relationship Specialty Start Date End Date Erlin Fragoso MD [address] [place] [address] PCP - General Internal Medicine 08/07/22 Jorge Worley DO [address] [place] [address] Cardiovascular Disease 08/07/22 Jose Nicolas MD [address] [place] [address] Surgery, Orthopedic 08/07/22 documented as of this encounter
--- OUTSIDE RECORDS SUMMARY | 2024-12-26 10:07 | XMS_ITS | Encounter Summary ---
Author Organization [facility] Address [address] [place] [address] Care Team Providers Care Machine Feeder Raw Stock Name Role Phone Jorge Worley DO Unavailable [phone] Erlin Fragoso MD Primary Care Provider [phone] Jose Nicolas MD Unavailable [phone] Encounter Details Date Type Department Care Team (Late st Contact Info) Description 09/18/2023 Scanned Document [facility] [place] [address] [place] [phone] Amari Ayers MD [address] [place] [address] [address] [place] [address] Social History Tobacco Use Types Packs/Day Years [...] on filedocumented in this encounter Care Teams Machine Feeder Raw Stock Relationship Specialty Start Date End Date Erlin Fragoso MD [address] [place] [address] PCP - General Internal Medicine 08/07/22 Jorge Worley DO [address] [place] [address] Cardiovascular Disease 08/07/22 Jose Nicolas MD [address] [place] [address] Surgery, Orthopedic 08/07/22 documented as of this encounter
--- OUTSIDE RECORDS SUMMARY | 2024-12-26 10:07 | XMS_ITS | Encounter Summary ---
Author Organization [facility] Address [address] [place] [address] Care Team Providers Care Fitness Plan Coordinator Name Role Phone Jorge Worley DO Unavailable [phone] Erlin Fragoso MD Primary Care Provider [phone] Jose Nicolas MD Unavailable [phone] Encounter Details Date Type Department Care Team (Late st Contact Info) Description 09/23/2023 Scanned Document [facility] [address] [phone] Amari Ayers MD [address] [place] [address] Social History Tobacco Use Types Packs/Day Years [...] on filedocumented in this encounter Care Teams Fitness Plan Coordinator Relationship Specialty Start Date End Date Erlin Fragoso MD [address] [place] [address] PCP - General Internal Medicine 08/07/22 Jorge Worley DO [address] [place] [address] Cardiovascular Disease 08/07/22 Jose Nicolas MD [address] [place] [address] Surgery, Orthopedic 08/07/22 documented as of this encounter
--- OUTSIDE RECORDS SUMMARY | 2024-12-26 10:07 | XMS_ITS | Clinical Summary ---
Author Organization [facility] Address [address] [place] [address] Care Team Providers Care Senior Automation Engineer Name Role Phone Jorge Worley DO Unavailable [phone] Erlin Fragoso MD Primary Care Provider [phone] Jose Nicolas MD Unavailable Allergies Active Allergy Reactions Criticality Noted Date Comments Hydromorphone GI Intolerance/Nausea/Vomiting Low Fentanyl GI Intolerance/Nausea/Vomiting Low 09/05 Latex Rash/Dermatitis Low 01/22/2018 Lisinopril Cough Medium 07/27/2017 Morphine GI Intolerance/Nausea/Vomiting Low 08/14 Oxycodone GI Intolerance/Nausea/Vomiting Low 08/14 Scopolamine GI Intolerance/Nausea/Vomiting Low 06/10/2021 Tramadol GI Intolerance/Nausea/Vomiting Low 01/31 Medications aspirin enteric coated (ECOTRIN LOW STRENGTH) 81 MG EC tablet Take by mouth every morning. Active atorvastatin (LIPITOR) 10 MG tablet Take 1 tablet (10 mg total) by mouth every morning. 02/27/2022 Active famotidine (PEPCID) 20 MG tablet Take 1 tablet (20 mg total) by mouth every morning. 04/21/2022 Active glucose blood (Social TablesTouch Ultra) test strip Inject 1 each under the skin. 02/23/2022 Active hydrochlorothiaz yzamin (HYDRODIURIL) 12.5 MG tablet Take 1 tablet (12.5 mg total) by mouth every morning. 02/23/2022 Active valsartan (DIOVAN) 160 MG tablet Take 1 tablet (160 mg total) by mouth every morning. 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 Diabetes mellitus 04/08/2022 Overview (08/15/2022): A1C 6.5 Hypertension HLD (hyperlipidemia) Encounters Date Type Department Care Team Description 11/29/2024 2:15 PM EDT [facility] [address] [phone] Adonay Rodriguez MD Spondylosis of lumbar region without myelopathy or radiculopathy (Primary Dx) 11/15/2024 11:15 AM EDT Ancillary Procedure [facility] [address] [phone] 11/15/2024 10:45 AM EDT Office Visit [facility] [address] [address] Siva Cheatham MD Pain in left ankle and joints of left foot (Primary Dx) from Last 3 Months Immunizations Immunization Administration Dates Next Due Influenza High-Dose Quadriva lent,(FLUZONE HIGH-DOSE), Perservative Free IM 0.7 mL 65 years and older 07/06/2022,06/19/2020 Family History Medical History Relation Name Comments Stroke Brother 1 Lung cancer Brother 2 Polycystic kidney disease Daughter Lung cancer Father Polycystic kidney disease Father No Known Problems Mother Pneumonia Sister Relation Name Status Comments Brother 1 Brother 2 Daughter Father Mother Sister Social History Tobacco Use Types Packs/Day Years Used Date Smoking Tobacco: Never Smokeless Tobacco: Never Tobacco Cessation:Counseling Given: Not Answered Alcohol Use Standard Drinks/Week Comments Not Currently [...] Orientation Heterosexual (straight) 09/05 7:57 AM EST Last Filed Vital Signs Vital Sign Reading Time Taken Comments Blood Pressure 167/56 09/06/2022 9:29 AM EST CHATO Hernández notified Pulse 79 09/06/2022 9:29 AM EST Temperature 36.8 ??C (98.2 ??F) 09/06/2022 9 :29 AM EST Respiratory Rate 18 09/06/2022 9:29 AM EST Oxygen Saturation 95% 09/06/2022 9:2 9 AM EST Inhaled Oxygen Concentration - - Weight 70.3 kg (155 lb) 09/05/2022 5:30 PM EST Height 152.4 cm (5') 09/05/2022 5:30 PM EST Body Mass Index 30.27 09/05/2022 5:30 PM EST Plan of Treatment Health Maintenance Due Date Last Done Comments Hepatitis C Virus Screening 1950 Foot Exam 1960 Lipid Panel 1960 Ophthalmology Exam 1960 DTaP/Tdap/Td Vaccines (1 - Tdap) 1969 Pneumococcal Vaccines 50+ (1 of 2 - PCV) 1969 Mammogram 1990 Colonoscopy 1995 Zoster (Shingles) Vaccine (1 of 2) 2000 DXA Bone Density (Females,Ages 65 and older) 2015 Creatinine with GFR 09/06/2023 09/06/2022, 2 COVID-19 Vaccine ( - season) 2024 09/09/2023, 12/05/2020 Hemoglobin A1C 03/01/2025 09/01/2024, 08/0 08/2023, 08/21/2023, Additional history exists RSV Vaccine 60 years and older and Patients (1 - 1-dose 75+ series) 2025 Microalbumin/Creatinine Ratio Urine 09/01/2025 09/01/2024, 09/11/2023, 10/17/2022 Influenza Vaccine Completed 04/28/2024, , 07/06/2022, Additional history exists Hepatitis B Vaccines Aged Out No long er eligible based on patient's age to complete this topic Medical Devices Implanted Type Area As400 Administrator Device Identifier Shelf Expiration Date Model / Serial / Lot 6191-1-001 Cement Bone Smpx P Radopq Fd Sterl - [id number] Implanted:Qty : 1 on 09/05/2022 by Jose Nicolas MD at [facility] Cement Right: Knee [employer] - DIV STRY [id number] 02/27/2025 6191- / / [id number] 6191- Cement Bone Smpx P Radopq Fd Sterl - [id number] Implanted:Qty : 1 on 09/05/2022 by Jose Nicolas MD at [facility] Cement Right: Knee [employer] - DIV STRY [id number] 02/27/2025 6191- / / [id number] 6191- Cement Bone Smpx P Radopq Fd Sterl - [id number] Implanted:Qty : 1 on 09/05/2022 by Jose Nicolas MD at [facility] Cement Right: Knee [employer] - DIV STRY [id number] 02/27/2025 6191- / / [id number] Cement Bone Smpx P Radopq Fd Sterl - [id number] Implanted:Qty : 1 on 09/05/2022 by Jose Nicolas MD at [facility] Cement Right: Knee [employer] - DIV STRY [id number] 02/27/2025 6191-001 / / [id number] Component Femoral 5+ Knee Cndrl Cement Cnstrn Persona Cocr - [id number] Implanted:Qty : 1 on 09/05/2022 by Jose Nicolas MD at [facility] Joint Prosthesis Right: Knee [employer] [id number] 07/01/2032 [id number] / / [id number] Component Tibial Persona C Knee Right Npor Revision Fixation - [id number] Implanted:Qty : 1 on 09/05/2022 by Jose Nicolas MD at [facility] Joint Prosthesis Right: Knee [employer] [id number] 07/07/2032 [id number] / / [id number] Surface Articular 12mm Persona 3-5 Cd Knee Right Vivacit-E - [id number] Implanted:Qty : 1 on 09/05/2022 by Jose Nicolas MD at [facility] Joint Prosthesis Right: Knee [employer] [id number] 06/10/2026 [id number] / / [id number] Restrictor Cement 25mm Owens 16-21mm Hip Fem Plug Sterl - [id number] Implanted:Qty : 1 on 09/05/2022 by Jose Nicolas MD at [facility] Joint Prosthesis Right: Knee [employer] [id number] 01/06/2032 [id number] / / [id number] 5549-A-130 Augment Tibial Trthln C Cone Knee Tritanium Smtr Sterl Lf - [id number] Implanted:Qty : 1 on 09/05/2022 by Jose Nicolas MD at [facility] Joint Prosthesis Right: Knee [employer] STRY [id number] 02/16/2027 5549-A-130 / / [id number] Augment Femoral 5mm Persona 5 5+ Knee Dist Sterl Lf - [id number] Implanted:Qty : 1 on 09/05/2022 by Jose Nicolas MD at [facility] Joint Prosthesis Right: Knee [employer] [id number] 06/03/2032 [id number] / / [id number] Stem Tibial 135+ Mm 18mm Persona Straight Knee Spline - [id number] Implanted:Qty : 1 on 09/05/2022 by Jose Nicolas MD at [facility] Joint Prosthesis Right: Knee [employer] [id number] 07/04/2032 [id number] / / [id number] Stem Extension 30+ Mm 14mm Persona Taper Knee Tibia - [id number] Implanted:Qty : 1 on 09/05/2022 by Jose Nicolas MD at [facility] Joint Prosthesis Right: Knee [employer] [id number] 07/20/2032 [id number] / / [id number] Procedures Procedure Name Priority Date/Time Associated Diagnosis Comments XR ANKLE 2 VIEWS-LEFT Routine 11/15/2024 11:21 AM EDT Pain in left ankle and joints of left foot XR FOOT 3+ VIEWS-LEFT Routine 11/15/2024 11:21 AM EDT Pain in left ankle and joints of left foot BASIC METABOLIC PANEL Routine 09/06/2022 6:43 AM EST HEMOGLOBIN A1C WITH ESTIMATED AVERAGE GLUCOSE Routine 08/18/2022 11:15 AM EST Preop examination Primary osteoarthritis of right knee from Last 3 Months or Most Recently Relevant to Health Maintenance Results * XR Foot 3+ views-Left (11/15/2024 11:21 AM EDT) Narrative [facility] - 11/15/2024 11:21 AM EDT [facility] and images reviewed by orthopedic provider. ??Any findings are documented within ambulatory encounter note on date of service. Siva Cheatham MD [facility] ORDERA BLES Final Result Performing Organization Address [facility] Co de Phone Number OA * XR Ankle 2 views-Left (11/15/2024 11:21 AM EDT) Narrative [facility] - 11/15/2024 11:21 AM EDT This exam [facility] and images reviewed by orthopedic provider. ??Any findings are documented within ambulatory encounter note on date of service. Siva Cheatham MD [facility] ORDERA BLES Final Result Performing Organization Address [facility]/ZIP Co de Phone Number OA * (ABNORMAL) Basic Metabolic Panel (Early AM) (09/06/2022 6:43 AM EST) Glucose 118(H) 65 - 99 mg/dL 09/06/2022 8:18 AM [facility] Comment:Fasting: <100 mg/dL, Non-Fasting: <200 mg/dL (ADA 2005) Blood Urea Nitrogen (BUN) 20 8 - 21 mg/dL 09/06/2022 8:18 AM [facility] Creatinine 0.7 0.4 - 1.1 mg/dL 09/06/2022 8:18 AM [facility] eGFR >60 >59 09/06/2022 8:18 AM [facility] Comment:MDRD in mL/min/1.73 sq meters. Sodium 142 136 - 145 mmol/L 09/06/2022 8:18 AM [facility] Potassium 3.9 3.4 - 5.3 mmol/L 09/06/2022 8:18 AM [facility] Chloride 104 98 - 107 mmol/L 09/06/2022 8:18 AM [facility] CO2 28 22 - 33 mmol/L 09/06/2022 8:18 AM [facility] Anion Gap 10 7 - 17 09/06/2022 8:18 AM [facility] Calcium 8.9 8.7 - 10.5 mg/dL 09/06/2022 8:18 AM [facility] BUN/Creatinine Ratio 29(H) 10.0 - 25.0 Ratio 09/06/2022 8:18 AM [facility] Blood specimen (specimen) (Plasma/Serum) 09/06/2022 6:43 AM EST 09/06/2022 7:43 AM EST us Luc[facility] BLOOD ORDERABLES Final Result HOSPITAL LAB See Below [facility] [address] [place] [address] * (ABNORMAL) Hemoglobin A1c with Estimated Average Glucose (08/18/2022 11:15 AM EST) Hemoglobin A1C 7.2(H) <5.7 % 08/18/2022 8:55 PM [facility] Comment: A1c% ? Interpretation 5.7 - 6.0 ?Increase risk of diabetes 6.1 - 6.4 ?Higher risk of diabetes > or = 6.5 ?? Consistent with diabetes Diabetes Care, 33(Supp 1):S1-S61, 2010 Estimated Average Glucose 160 mg/dL 08/18/2022 8:55 PM EST [facility] Blood specimen (specimen) Blood specimen / Unknown 08/18/2022 11:15 AM EST 08/18/2022 8:17 PM EST us Zayda Mirza RISK PROFESSIONAL LAB BLOOD ORDERABLES Final R esult HOSPITAL LAB See Below [address] [address] from Last 3 Months or Most Recently Relevant to Health Maintenance Insurance [address] [place] [address] [facility] MEDICARE [address] [place] [address] [facility] MEDICARE [address] [place] [address] [employer] MEDICARE Advance Directives Documents on File Type Date Recorded 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
--- OUTSIDE RECORDS SUMMARY | 2024-12-26 10:07 | XMS_ITS ---
Author Organization [email or web address] Address [address] [facility] [address] [place] [address] Care Team Providers Care Digital Sales Representative Name Role Phone STARLA BRAVO Unavailable [phone] REASON FOR VISIT Annual TEST DESKMAN Physical Encounters Encounter Location Date Provider Diagnosis [email or web address] [address] [facility] [address] [place] [address] 02/08/2024 STARLA BRAVO Encounter for gynecological examination (general) (routine) without abnormal findings Z01.419 and Encounter for screening mammogram for malignant neoplasm of breast Z12.31 Assessments Encounter Date Diagnosis (ICD Code) Assessment Notes Treatment Notes Treatment Clinical Notes Section Notes 02/08/2024 Encounter for gynecological examination (general) (routine) without abnormal findings (ICD-10 - Z01.419) During the visit, the following areas of concern were addressed: Discussed stopping cervical cancer screening as per ASCCP guidelines. Advised continued annual pelvic exams. Patient encouraged to increase her level of exercise. SBE technique encouraged/tau ght. Patient reminded when annual mammogram is due. Patient encouraged to keep colon screening up to date. 02/08/2024 Encounter for screening mammogram for malignant neoplasm of breast (ICD-10 - Z12.31) Plan Of Treatment Treatment Notes Assessment Notes Encounter for gynecological examination (general) (routine) without abnormal findings During the visit, the following areas of concern were addressed: Discussed stopping cervical cancer screening as per ASCCP guidelines. Advised continued annual pelvic exams. Patient encouraged to increase her level of exercise. SBE technique encouraged/taught. Patient reminded when annual mammogram is due. Patient encouraged to keep colon screening up to date. Pending Test Test Name Order Date MM Digital Screening Mammogram 3D 2023 Next Appt Details Follow Up: 1 Year, Reason: Y early Shell Mold Bonding Machine Operator Exam Progress Notes * ERICA DERASOB: 0 (74 yo F)Acc No.[id number]:02/08/2024 Progress Note Patient:?XU DERAS Provider:?STARLA BRAVO MD :1950???Age:73 Y???Sex:Female D ate:02/08/2024 Address:[address] [place] [address], [id number] Subjective: * Chief Complaints: * ???1. 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 * HPI: ???Constitutional:? 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 She is new to the practice, having received previous gynecologic care . She has been in state of health since her last exam. She has the following concerns:. She has received the Covid-19 vaccine. Relationship status: for years. She is sexually active. Sexual partner(s): male. She does wish to have STI testing. She does report vaginal dryness. She does have hot flashes/night sweats. The patient has had an abnormal pap smear within the last 5 years. Her most recent pap smear was . She has been diagnosed with breast cancer. She does have a family history of breast cancer. Her last mammogram was 02/20/23. She does have a family history of colon cancer. She a has had a colonoscopy. The last colonoscopy was 01/27/2020. She had a tubular adenoma. The patient does exercise. She exercises x days/week by . 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 * Medical History:? * Surgical History:?Colonoscop y 12/2019, Parathyroidectomy (right and left inferior glands) 08/2020. Objective: * Vitals:? * Examination: ???General Examination: ?GENERAL APPEARANCE:?in no acute distress, well developed, well nourished, almond huller present in room.?HEAD:?normocephalic, atraumatic.?NECK/THYROID:?neck supple, full range of motion, thyroid normal.?LYMPH NODES:?no axillary or supraclavicular adenopathy.?SKIN:? normal, good turgor, no rashes, no suspicious lesions.?BREASTS:? normal, no dimpling, no discharge, no drainage, no masses palpable bilaterally, nontender.?ABDOMEN:? soft, non-tender, non distended without masses or hepatosplenomegay.?RECTAL:? normal tone, no masses palpable.?BACK:? no costovertebral angle tenderness.?FEMALE GENITOURINARY:?Vulva without lesions or masses, vagina pink without abnormal discharge, lesions or masses, cervix appears normal and is not tender to palpation, uterus is normal size, mobile, nontender and anteverted, ovaries are not palpable.?NEUROLOGIC:? alert and oriented, gait normal.?PSYCH:? alert, oriented, cognitive function intact, cooperative with exam, good eye contact, mood/affect full range, speech clear.? Assessment: * Assessment: 1.?Encounter for gynecologic al examination (general) (routine) without abnormal findings - Z01.419 (Primary)???2.?Encounter for screening mammogram for malignant neoplasm of breast - Z12.31??? 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 28279 Preventive Care New Pt. Age 65 and over. * Procedure Codes:? 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 She is new to the practice, having received previous gynecologic care . She has been in state of health since her last exam. She has the following concerns:. She has received the Covid-19 vaccine. Relationship status: for years. She is sexually active. Sexual partner(s): male. She does wish to have STI testing. She does report vaginal dryness. She does have hot flashes/night sweats. The patient has had an abnormal pap smear within the last 5 years. Her most recent pap smear was . She has been diagnosed with breast cancer. She does have a family history of breast cancer. Her last mammogram was 02/20/23. She does have a family history of colon cancer. She a has had a colonoscopy. The last colonoscopy was 01/27/2020. She had a tubular adenoma. The patient does exercise. She exercises x days/week by . Examination Category Sub-Category Detail Notes Category Not es General Examination GENERAL APPEARANCE: in no ac napaimute distress, well developed, well nourished, almond huller present in room HEAD: normocephalic, atrau matic NECK/THYROID: neck supple, full ra nge of motion, thyroid normal ABDOMEN: soft, non-tender, no n distended without masses or hepatosplenomegay NEUROLOGIC: alert and oriented, gait normal SKIN: normal, good turgor, no rashes, no suspicious lesions BACK: no costovertebral an gle tenderness BREASTS: normal, no dimpling, no discharge, no drainage, no masses palpable bilaterally, nontender LYMPH NODES: no axillary or supra clavicular adenopathy RECTAL: normal tone, no mass es palpable PSYCH: alert, oriented, cog nitive function intact, cooperative with exam, good eye contact, mood/affect full range, speech clear FEMALE GENITOURINARY: Vulva without lesi ons or masses, vagina pink without abnormal discharge, lesions or masses, cervix appears normal and is not tender to palpation, uterus is normal size, mobile, nontender and anteverted, ovaries are not palpable
--- OUTSIDE RECORDS SUMMARY | 2024-12-26 10:07 | XMS_ITS | Encounter Summary ---
Author Organization [facility] Address [address] [place] [address] Care Team Providers Care Fruit Sprayer Name Role Phone Jorge Worley DO Unavailable [phone] Erlin Fraogso MD Primary Care Provider [phone] Jose Nicolas MD Unavailable [phone] Encounter Details Date Type Department Care Team (Late st Contact Info) Description 08/28/2023 Scanned Document [facility] [address] [place] [phone] Amari Ayers MD [address] [place] [address] [address] [place] [address] Social History Tobacco Use Types Packs/Day Years [...] on filedocumented in this encounter Care Teams Fruit Sprayer Relationship Specialty Start Date End Date Erlin Fragoso MD [address] [place] [address] PCP - General Internal Medicine 08/07/22 Jorge Worley DO [address] [place] [phone] Cardiovascular Disease 08/07/22 Jose Nicolas MD [address] [place] [id number] Surgery, Orthopedic 08/07/22 documented as of this encounter
--- OUTSIDE RECORDS SUMMARY | 2024-12-26 10:07 | XMS_ITS | Clinical Summary ---
Author Organization [facility] Address [address] [place] [address] Care Team Providers Care Efficiency Engineer Name Role Phone Erlin Fragoso Primary Care Provider Social History Tobacco Use Types Packs/Day Years Used Date Smoking Tobacco: Never Assessed Comments Unknown Sex and Gender Information Value Date Recorded Sex Assigned at Not on file Legal Sex Female 8:16 AM EST Gender Identity Not on file Sexual Orientation Not on file Plan of Treatment Health Maintenance Due Date Last Done Comments Bone Density Screening 1950 Breast Cancer Screening 1950 CT Colonography 1950 Colonoscopy 1950 Colorectal Cancer Screening 1950 FIT-DNA (Cologuard) 1950 FIT 1950 FOBT 1950 Flex Sigmoidoscopy - 5y 1950 HIV Screening 1950 Zoster Vaccines (2 of 2) 03/15/2020 01/19/2020 DTaP,Tdap,and Td Vaccines (2 - Td or Tdap) 12/07/2021 12/08/2011, 12/29/2006 COVID-19 Vaccine (2 - 2023-2 5 season) 2024 12/05/2020 Influenza Vaccine (Season Ended) 2025 Pneumococcal Vaccine, 50+ Years Completed 05/24/2019, 11/30/2017 Medicare Annual Wellness (AWV) Discontinued 01/09/2020, 09/02/2018 HPV Vaccines Aged Out No longer eligi ble based on patient's age to complete this topic Hepatitis A Vaccines Aged Out No long er eligible based on patient's age to complete this topic Meningococcal Vaccine Aged Out No gwendolyn harris eligible based on patient's age to complete this topic Insurance AETNA MEDICARE PPO [facility] Care Teams Efficiency Engineer Relationship Specialty Start Date End Date Erlin Fragoso [address] [place] [address] PCP - General Primary Care 01/07/22
--- OUTSIDE RECORDS SUMMARY | 2024-12-26 10:07 | XMS_ITS | Encounter Summary ---
Author Organization [facility] Address [address] [place] [address] Care Team Providers Care Quality Control Microbiology Supervisor Name Role Phone Jorge Worley DO Unavailable [phone] Erlin Fragoso MD Primary Care Provider [phone] Jose Nicolas MD Unavailable [phone] Encounter Details Date Type Department Care Team (Late st Contact Info) Description 07/16/2023 Scanned Document [facility] [address] [place] [address] Adonay Rodriguez MD [address] [facility] [address] [place] [address] Social History Tobacco Use Types Packs/Day Years [...] on filedocumented in this encounter Care Teams Quality Control Microbiology Supervisor Relationship Specialty Start Date End Date Erlin Fragoso MD [address] [place] [address] PCP - General Internal Medicine 08/07/22 Jorge Worley DO [address] [place] [phone] Cardiovascular Disease 08/07/22 Jose Nicolas MD [address] [place] [id number] Surgery, Orthopedic 08/07/22 documented as of this encounter
--- OUTSIDE RECORDS SUMMARY | 2024-12-26 10:07 | XMS_ITS | Encounter Summary ---
Author Organization [facility] Address [address] [place] [address] Care Team Providers Care Patent Attorney Name Role Phone Jorge Worley DO Unavailable [phone] Erlin Fragoso MD Primary Care Provider [phone] Jose Nicolas MD Unavailable [phone] Encounter Details Date Type Department Care Team (Late st Contact Info) Description 09/23/2023 Scanned Document [facility] [address] [phone] Amari Ayers MD [address] [place] [address] Social History Tobacco Use Types Packs/Day Years [...] on filedocumented in this encounter Care Teams Patent Attorney Relationship Specialty Start Date End Date Erlin Fragoso MD [address] [place] [address] PCP - General Internal Medicine 08/07/22 Jorge Worley DO [address] [place] [address] Cardiovascular Disease 08/07/22 Jose Nicolas MD [address] [place] [id number] Surgery, Orthopedic 08/07/22 documented as of this encounter
--- OUTSIDE RECORDS SUMMARY | 2024-12-26 10:07 | XMS_ITS | Patient Health Record ---
Author Organization [facility] Address [address] [facility] [address] [place] [address] Care Team Providers Care Sales Representative Adding Machines Name Role Phone BRAVO STARLA Unavailable [phone] Reason For Referral No Information Plan Of Treatment No Information Insurance Providers Payer Name Payer Address Payer Phone Subscriber Number Group Number Insured Name Patient Relationship to Insured Coverage Start Date Coverage End Date AETNA MEDICARE [address] [place] [address] XU ENGLE Self - patient is the insured Medical (General) History Surgical History Surgery Date(Month/Year) Colonoscopy 12/2019 Parathyroidectomy (right and left inferi or glands) 08/2020
--- OUTSIDE RECORDS SUMMARY | 2024-12-26 10:07 | XMS_ITS | Encounter Summary ---
Author Organization [facility] Address [address] [place] [address] Care Team Providers Care Patient Case Manager Name Role Phone Jorge Worley DO Unavailable [phone] Erlin Fragoso MD Primary Care Provider [phone] Jose Nicolas MD Unavailable [phone] Encounter Details Date Type Department Care Team (Late st Contact Info) Description 08/15/2022 Telephone [facility] [place] [address] [facility] 2nd Floor [address] [place] [phone] Gina Dorsey MA [address] [place], [place] [phone] Social History Tobacco Use Types Packs/Day Years Used Date Smoking Tobacco: Never Smokeless Tobacco: Never Alcohol Use Standard Drinks/Week Comments Not Currently 0 (1 standard drink = 0.6 oz pur e alcohol) Extremely rare Comments Unknown Sex and Gender Information Value Date Recorded Sex Assigned at Female 09/05/2022 7:57 AM EST Legal Sex Female 5:33 PM EDT Gender Identity Female 09/05/2022 7:57 AM EST Sexual Orientation Heterosexual (straight) 09/05 7:57 AM EST COVID-19 Exposure Response Date Recorded In the last 10 days, have yo u been in contact with someone who was confirmed or suspected to have Coronavirus/COVID-19? No / Unsure 08/18/2022 10:27 AM EST documented as of this encounter Miscellaneous Notes * Telephone Encounter - Gina Dorsey MA - 08/15/2022 4:29 PM EST COVID screen: 1) Current temperature: Temp Readings from Last 1 Encounters: No data found for Temp - Temperature >100.0 F: No In the past two weeks, have you experienced (two of the following): 2) Cough: No 3) Difficulty breathing: No 4) Shortness of breath: No 5) N/V: No 6) Diarrhea: No 7) Abdominal pain: No 8) Loss of sense of taste: No 9) Loss of sense of smell: No 10) Body aches: No 11) Muscle pain: No 12) Sneezing: No 13) Runny nose: No 14) Sore throat: No 15) Headache: No 16)Fever: No 17)Chills: No 18)Repeated shaking with chills: No Have you recently been in close contact with a person confirmed or suspected of COVID-19? No Have you recently been in close contact with a person with flu like symptoms? No Have you recently had an admission to SNF/Rehab/Fci? No Have you traveled internationally or domestically in the last month? No documented in this encounter Plan of Treatment Not on file documented as of this encounter Visit Diagnoses Not on filedocumented in this encounter Care Teams Patient Case Manager Relationship Specialty Start Date End Date Erlin Fragoso MD [address] [place] [id number] PCP - General Internal Medicine 08/07/22 Jorge Worley DO [address] [place] [address] Cardiovascular Disease 08/07/22 Jose Nicolas MD [address] [facility] [address] [place] [address] Surgery, Orthopedic 08/07/22 documented as of this encounter
--- OUTSIDE RECORDS SUMMARY | 2024-12-26 10:08 | XMS_ITS ---
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 * Medical History:? Objective: * Vitals:? Assessment: Plan: * Treatment: * Images: Billing Information: * Visit Code:? * Procedure Codes:? * Electronic signature of STARLA BRAVO MD on 12/26/2024 at 10:07 AM EDT Sign off status: Pending * Provider:?STARLA BRAVO MD Date:?2023 Generated for Olman naylor/Lianna/eTransmitting on:?12/26/2024 10:07 AM EDT
--- OUTSIDE RECORDS SUMMARY | 2024-12-26 10:08 | XMS_ITS | Clinical Summary ---
Author Organization [facility] Address [address] [place] [address] Care Team Providers Care Small Order Cutter Name Role Phone Unavailable Primary Care Provider Unavailabl e Social History Tobacco Use Types Packs/Day Years Used Date Smoking Tobacco: Never Assessed Sex and Gender Information Value Date Recorded Sex Assigned at Not on file Gender Identity Not on file Sexual Orientation Not on file Job Start Date Occupation Industry Not on file Not on file Not on file Plan of Treatment Health Maintenance Due Date Last Done Comments Hepatitis C Screening 1950 COVID-19 Vaccine (#1) 1950 Depression Screening 1962 Preventative Health Evaluation 1968 DTap / Tdap / Td (1 - Tdap) 1969 Colon Cancer Screening (Colonoscopy) 1995 Breast Cancer Screening (Mammogram) 2000 Shingrix-Zoster Vaccine (1 of 2) 2000 Fall Risk Assessment 2015 Osteoporosis Screening (DEXA Scan) 2015 Pneumococcal Vaccine (1 of 1 - PCV) 2015 Influenza Vaccine (#1) 2024 RSV Adult > 60+ Yrs or Pregn ant (1 - 1-dose 75+ series) 2025 Hepatitis B Vaccines Aged Out No long er eligible based on patient's age to complete this topic RSV Ped < 20 months Aged Out No longe r eligible based on patient's age to complete this topic [address] [place] [id number]
--- OUTSIDE RECORDS SUMMARY | 2024-12-26 10:08 | XMS_ITS | Clinical Summary ---
Author Organization [facility] 299 [facility] Address [address] [place] [address] Phone Care Team Providers Care Flood Control Engineer Name Role Phone Erlin Fragoso MD Primary Care Provider [phone] Allergies Active Allergy Reactions Criticality Noted Date Comments Latex 08/25/2024 Medications valsartan (DIOVAN) 160 mg tablet Take 1 tablet (160 mg total) by mouth daily. 07/04/2020 Active tobramycin (TOBREX) 0.3 % ophthalmic solution INSTILL 1 DROP INTO RIGHT EYE 4 TIMES A DAY 06/23/2024 Active Mounjaro 5 mg/0.5 mL injection Inject 0.5 mL (5 mg total) under the skin every 7 (seven) days. 06/14/2024 Active polyethylene glycol 3350 (MIRALAX ORAL) Take 17 g by mouth. 07/04/2020 Active montelukast (SINGULAIR) 10 mg tablet Take 1 tablet (10 mg total) by mouth. 04/26/2010 Active levothyroxine (SYNTHROID, LEVOTHROID) 25 mcg tablet Take 1 tablet (25 mcg total) by mouth daily. 08/23/2024 Active hydroCHLOROthia zide 12.5 mg tablet Take 1 tablet (12.5 mg total) by mouth 1 (one) time each day. Active fluticasone propionate (FLONASE) 50 mcg/actuation nasal spray SPRAY 2 SPRAYS BY NASAL ROUTE 2 TIMES A DAY 08/12/2024 Active famotidine (PEPCID) 20 mg tablet Take 1 tablet (20 mg total) by mouth 1 (one) time each day. Active Yuvafem 10 mcg tablet vaginal tablet Insert 1 tablet (10 mcg total) into the vagina 2 (two) times a week. 06/23/2024 Active cyanocobalamin (VITAMIN B-12) 1,000 mcg tablet Take 1 tablet (1,000 mcg total) by mouth daily. Active calcium carbonate (OS-KIN) 1250 mg (500 mg elemental calcium) chewable tablet Chew 500 mg. A ctive aspirin 81 mg EC tablet Take 1 tablet (81 mg total) by mouth daily. 09/14/2020 Active atorvastatin (LIPITOR) 10 mg tablet Take 1 tablet (10 mg total) by mouth daily. 02/11/2016 Active Active Problems Problem Noted Date Diagnosed Date Abdominal wall hernia 11/24/2024 Other constipation 11/24/2024 History of colon polyps 08/12/2024 History of gastric bypass 08/12/2024 B12 deficiency 08/12/2024 Encounters Date Type Department Care Team Description 12/01/2024 Telephone Gastroenterology - [address] [phone] Serafin Denise DE Results 11/24/2024 10:30 AM EDT Office Visit Gastroenterology - [address] [phone] Nick Espana MD Abnormal LFTs (Primary Dx); Liver disease, unspecified; History of colon polyps; History of gastric bypass; Abdominal wall hernia 11/22/2024 4:54 PM EDT - 11/22/2024 11:59 PM EDT Hospital Encounter [facility] CT Scan [address] [place] [phone] History of gastric bypass; Abdominal pain, LUQ Discharge Disposition: Home or Self Care from Last 3 Months Surgical History Surgery Date Site/Laterality Comments CHOLECYSTECTOMY GASTRIC BYPASS Social History Tobacco Use Types Packs/Day Years Used Date Smoking Tobacco: Never Smokeless Tobacco: Never Tobacco Cessation:Counseling Given: Not Answered Alcohol Use Standard Drinks/Week Comments Never 0 (1 standard drink = 0.6 oz pur e alcohol) Comments Unknown Sex and Gender Information Value Date Recorded Sex Assigned at Female 10/05/2024 2:10 PM EST Legal Sex Female 11:38 AM EST Gender Identity Female 10/05/2024 2:10 PM EST Sexual Orientation Straight 10/05/2024 2: 10 PM EST Obstetrics History Last Filed Vital Signs Vital Sign Reading Time Taken Comments Blood Pressure - - Pulse - - Temperature - - Respiratory Rate - - Oxygen Saturation - - Inhaled Oxygen Concentration - - Weight 55.6 kg (122 lb 8 oz) 11/24/2024 11:02 AM EDT Height 152.4 cm (5') 11/24/2024 11:02 AM EDT Body Mass Index 23.92 11/24/2024 11:02 AM EDT Plan of Treatment Health Maintenance Due Date Last Done Comments Breast Cancer Screening 1950 Diabetes: Annual Foot Exam 1960 Diabetes: Annual Retina Eye Exam 1960 RSV Immunization Adult Patients (1 - Risk 60-74 years 1-dose series) 2010 Zoster Vaccines (2 of 2) 03/15/2020 01/19/2020 DTaP,Tdap,and Td Vaccines (3 - Td or Tdap) 12/07/2021 12/08/2011, 12/29/2006 Colorectal Cancer Screening: Colonoscopy 07/29/2022 Depression Screening 07/29/2022 Falls Risk Assessment 07/29/2022 Hepatitis C Screening 07/29/2022 Medicare Annual Wellness Visit 07/29/2022 Social Influencers of Health Screening 07/29/2022 COVID-19 Vaccine ( season) 2024 09/09/2023, 07/14/2021, 12/05/2020 Diabetes: Blood Sugar Control Test (HGBA1C) 08/25/2024 08/18/2022 Diabetes: Annual Urine Albumin-Creatinine Ratio (uACR) 09/01/2025 09/01/2024, 09/11/2023, 10/17/2022 Diabetes: Annual GFR (Glomerular Filtration Rate) 11/21/2025 11/21/2024, 03/31/2024, 09/11/2023, Additional history exists Hypertension/CHF/CAD Annual BMP Blood Test 11/21/2025 11/21/2024, 03/31/2024, 09/11/2023, Additional history exists Cholesterol Screening (Lipid Panel) 10/12/2029 10/12/2024 Osteoporosis Screening (Bone Density Screening) 02/25/2032 02/24/2022, 02/24/2022, 02/24/2022 Pneumococcal Vaccine: 50+ Years Completed 05/24/2019, 11/30/2017 Influenza Vaccine Completed 04/28/2024, , 07/06/2022, Additional history exists HIB Vaccines Aged Out No longer eligi ble based on patient's age to complete this topic HPV Vaccines Aged Out No longer eligi ble based on patient's age to complete this topic Hepatitis A Vaccines Aged Out No long er eligible based on patient's age to complete this topic Hepatitis B Vaccines Aged Out No long er eligible based on patient's age to complete this topic IPV Vaccines Aged Out No longer eligi ble based on patient's age to complete this topic MMR Vaccines Aged Out No longer eligi ble based on patient's age to complete this topic Meningococcal ACWY Vaccine Aged Out N o longer eligible based on patient's age to complete this topic Meningococcal B Vaccine Aged Out No l onger eligible based on patient's age to complete this topic RSV Immunization Patients Under 20 months Aged Out No longer eligible based on patient's age to complete this topic Varicella Vaccines Aged Out No longer eligible based on patient's age to complete this topic Procedures Procedure Name Priority Date/Time Associated Diagnosis Comments UBALDO IFA WITH TITER AND PATTERN Routine 11/24/2024 11:44 AM EDT Abnormal LFTs SMOOTH MUSCLE ANTIBODY IGG Routine 11/24/2024 11:44 AM EDT Abnormal LFTs ANTIMITOCHONDRIAL ANTIBODY Routine 11/24/2024 11:44 AM EDT Abnormal LFTs BILIRUBIN, TOTAL AND DIRECT Routine 11/24/2024 11:44 AM EDT Abnormal LFTs GAMMA GLUTAMYL TRANSFERASE Routine 11/24/2024 11:44 AM EDT Abnormal LFTs Abnormal levels of other serum enzymes CT ABDOMEN PELVIS W CONTRAST Routine 11/22/2024 5:47 PM EDT History of gastric bypass Abdominal pain, LUQ COPPER, SERUM Routine 11/21/2024 1:42 PM EDT Status post bariatric surgery COMPREHENSIVE METABOLIC PANEL Routine 11/21/2024 1:42 PM EDT Status post bariatric surgery FERRITIN Routine 11/21/2024 1:42 PM EDT Status post bariatric surgery IRON AND TIBC Routine 11/21/2024 1:42 PM EDT Status post bariatric surgery METHYLMALONIC ACID, SERUM Routine 2024 1:42 PM EDT Status post bariatric surgery from Last 3 Months Results * UBALDO IFA with titer and pattern (11/24/2024 11:44 AM EDT) UBALDO Negative Negative 11/25/2024 2:13 PM EDT [facility] Blood Venous blood specimen / Unknown Venipuncture / Unknown 11/24/2024 11:44 AM EDT 11/24/2024 12:09 PM EDT us Nick Espana MD LAB BLOOD ORDERABLES Final Resu lt [facility] [address] [place] [address], [place] [phone] * Smooth muscle antibody IgG (11/24/2024 11:44 AM EDT) Smooth Muscle (F-Actin) IgG Ab 4 <20 UNITS 11/28/2024 1:56 PM EDT [facility] Comment: Interpretation: Negative Test performed at [facility], [address] , [place], [place] ??[address] ? [phone] Beba Marinelli MD, PhD - Investor Relations Associate Blood Venous blood specimen / Unknown Venipuncture / Unknown 11/24/2024 11:44 AM EDT 11/24/2024 12:09 PM EDT us Nick Espana MD LAB BLOOD ORDERABLES Final Resu lt [facility] [address] [place] [address] * Antimitochondrial antibody (11/24/2024 11:44 AM EDT) Pathologist [facility] Mitochondrial Antibody Quantitative 3.5 <=20.0 units LAB CHEMISTRY METHOD 11/30/2024 11:42 AM EDT [facility] Mitochondrial Antibody Qualitative Negative Negative LAB CHEMISTRY METHOD 11/30/2024 11:42 AM EDT [facility] Blood Venous blood specimen / Unknown Venipuncture / Unknown 11/24/2024 11:44 AM EDT 11/24/2024 12:09 PM EDT Nick Espana MD LAB BLOOD ORDERABLES Final Resu lt Performing Organization Address City/[facility]/ZIP Co de Phone Number [facility] [address] [place] [address], * (ABNORMAL) Bilirubin, total and direct (11/24/2024 11:44 AM EDT) [facility] Total Bilirubin 2.5(H) 0.0 - 1.4 mg/dL LAB CHEMISTRY METHOD 11/24/2024 2:28 PM EDT [facility] Bilirubin, Direct 0.4(H) 0.0 - 0.3 mg/dL LAB CHEMISTRY METHOD 11/24/2024 2:28 PM EDT [facility] Bilirubin, Indirect 2.1(H) 0.0 - 1.1 mg/dL LAB CHEMISTRY METHOD 11/24/2024 2:28 PM EDT [facility] Blood Venous blood specimen / Unknown Venipuncture / Unknown 11/24/2024 11:44 AM EDT 11/24/2024 12:08 PM EDT us Nick Espana MD LAB BLOOD ORDERABLES Final Resu lt Performing Organization Address [facility]/ZIP Co de Phone Number [facility] [address] [place] [address], [place] [phone] * GGT (11/24/2024 11:44 AM EDT) GGT 24 7 - 64 unit/L LAB CHEMISTRY METHOD 11/24/2024 2:25 PM EDT [facility] Blood Venous blood specimen / Unknown Venipuncture / Unknown 11/24/2024 11:44 AM EDT 11/24/2024 12:08 PM EDT us Nick Espana MD LAB BLOOD ORDERABLES Final Resu lt Performing Organization Address [facility] Co de Phone Number [facility] [address] [place] [address], [place] [phone] * CT Abdomen Pelvis w Contrast (11/22/2024 5:47 PM EDT) Anatomical Region Laterality Modality Body Computed Tomogra phy 11/25/2024 4:14 PM EDT Impressions 11/25/2024 4:20 PM EDT Postoperative changes consistent with gastric bypass procedure. No obstruction, free air, free fluid or focal inflammatory changes. No significant change from the prior study. -------- FINAL REPORT -------- Dictated By: Bharat Jarvis Dictated Date: 11/25/2024 16:14 ET Assigned Physician: Bharat Jarvis Reviewed and Electronically Signed By: Bharat Jarvis Signed Date: 11/25/2024 16:20 ET Workstation ID: [id number] Transcribed By: Self Edit Transcribed Date: 11/25/2024 16:14 ET Narrative 11/25/2024 4:20 PM EDT INDICATION: Abdominal distention, left upper quadrant pain TECHNIQUE: CT scan of the abdomen and pelvis obtained with a total of 90 cc of Isovue-370 administered intravenously without incident. Oral contrast administered. Scanner: GE revolution frontier 128 slice VCT Dose reduction technique: ASIR (Adaptive statistical iterative reconstruction) and/or AEC (automated exposure control) Dose: total exam DLP 622 mGY per cm COMPARISON: December 20, 2020 FINDINGS: Lung bases are clear. Bony structures are unremarkable for the patient's age. Liver, spleen, pancreas, adrenal glands and kidneys are within normal limits. Status post cholecystectomy. Bilateral parapelvic renal cysts. Postoperative changes within the upper abdomen with gastric bypass procedure. Patent gastrojejunal anastomosis. Small bowel loops are otherwise normal in course and caliber without wall thickening or dilatation. Terminal ileum unremarkable. Normal appendix not visualized. No inflammatory changes in the right lower quadrant. Colon within normal limits. Mild sigmoid diverticulosis without acute diverticulitis. Urinary bladder is decompressed. Status post hysterectomy. No adnexal masses. Abdominal aorta normal in course and caliber. No lymphadenopathy. Procedure Note Bharat Jarvis MD - 11/25/2024 INDICATION: Abdominal distention, left upper quadrant pain TECHNIQUE: CT scan of the abdomen and pelvis obtained with a total of 90cc of Isovue-370 administered intravenously without incident. Oralcontrast administered. Scanner: [employer] revolution frontier 128 slice VCT Dose reduction technique: ASIR (Adaptive statistical iterativereconstruction) and/or AEC (automated exposure control) Dose: total exam DLP 622 mGY per cm COMPARISON: December 20, 2020 FINDINGS: Lung bases are clear. Bony structures are unremarkable for the patient's age. Liver, spleen, pancreas, adrenal glands and kidneys are within normallimits. Status post cholecystectomy. Bilateral parapelvic renal cysts. Postoperative changes within the upper abdomen with gastric bypassprocedure. Patent gastrojejunal anastomosis. Small bowel loops areotherwise normal in course and caliber without wall thickening ordilatation. Terminal ileum unremarkable. Normal appendix not visualized.No inflammatory changes in the right lower quadrant. Colon within normallimits. Mild sigmoid diverticulosis without acute diverticulitis. Urinary bladder is decompressed. Status post hysterectomy. No adnexal masses. Abdominal aorta normal in course and caliber. No lymphadenopathy. IMPRESSION: Postoperative changes consistent with gastric bypass procedure. Noobstruction, free air, free fluid or focal inflammatory changes. No significant change from the prior study. -------- FINAL REPORT -------- Dictated By: Bharat Jarvis Dictated Date: 11/25/2024 16:14 ET Assigned Physician: Bharat Jarvis Reviewed and Electronically Signed By: Bharat Jarvis Signed Date: 11/25/2024 16:20 ET Workstation ID: [id number] Transcribed By: Self Edit Transcribed Date: 11/25/2024 16:14 ET Nick Espana MD IMG CT PROCEDURES Final Result * Methylmalonic acid, serum (11/21/2024 1:42 PM EDT) Methylmalonic Acid 0.23 <0.40 umol/L 11/25/2024 5:12 AM EDT [facility] Comment: If applicable, any drug confirmation testing reported here was developed and the performance characteristics determined by [facility]. This confirmation testing has not been cleared or approved by the FDA. The laboratory is regulated under CLIA as qualified to perform high-complexity testing. This test is used for patient testing purposes. It should not be regarded as investigational or for research. Test performed at [facility], [address] , [place], [place] ??[address] ? [phone] Beba Marinelli MD, PhD - Investor Relations Associate Blood Venous blood specimen / Unknown Venipuncture / Unknown 11/21/2024 1:42 PM EDT 11/21/2024 1:51 PM EDT Nick Espana MD LAB BLOOD ORDERABLES Final Resu lt [facility] [address] [place] [place] [address] * Iron and TIBC (11/21/2024 1:42 PM EDT) Iron 61 40 - 150 mcg/dL LAB CHEMISTRY METHOD 11/21/2024 3:03 PM EDT [facility] TIBC 391 250 - 450 mcg/dL LAB CHEMISTRY METHOD 11/21/2024 3:03 PM EDT [facility] Iron Saturation 16 15 - 50 % LAB CHEMISTRY METHOD 11/21/2024 3:03 PM EDT [facility] Blood Venous blood specimen / Unknown Venipuncture / Unknown 11/21/2024 1:42 PM EDT 11/21/2024 1:51 PM EDT Nick Espana MD LAB BLOOD ORDERABLES Final Resu lt Performing Organization Address City/[facility]/ZIP Co de Phone Number [facility] [address] [place] [address], [place] [phone] * Copper, serum (11/21/2024 1:42 PM EDT) Copper 1100 810 - 1990 ug/L 11/25/2024 6:08 AM EDT [facility] Comment: Copper values may be elevated to twice the normal levels in . Elevated results may be due to sample collected in a non-certified trace element-free tube. This test was developed and the performance characteristics determined by [facility]. It has not been cleared or approved by the FDA. The laboratory is regulated under CLIA as qualified to perform high-complexity testing. This test is used for patient testing purposes. It should not be regarded as investigational or for research. Test performed at [facility], [address] , [place], [place] ??[address] ? [phone] Beba Marinelli MD, PhD - Investor Relations Associate Blood Venous blood specimen / Unknown Venipuncture / Unknown 11/21/2024 1:42 PM EDT 11/21/2024 1:51 PM EDT us Nick Espana MD LAB BLOOD ORDERABLES Final Resu lt [facility] [address] [place] [address] * Ferritin (11/21/2024 1:42 PM EDT) Ferritin 26 8 - 252 ng/mL LAB CHEMISTRY METHOD 11/21/2024 3:03 PM T [facility] Blood Venous blood specimen / Unknown Venipuncture / Unknown 11/21/2024 1:42 PM EDT 11/21/2024 1:51 PM EDT us Nick Espana MD LAB BLOOD ORDERABLES Final Resu lt [facility] [address] [place] [address], [place] [phone] * (ABNORMAL) Comprehensive metabolic panel (11/21/2024 1:42 PM EDT) Sodium 138 133 - 145 mmol/L LAB CHEMISTRY METHOD 11/21/2024 3:03 PM [facility] Potassium 3.6 3.5 - 5.5 mmol/L LAB CHEMISTRY METHOD 11/21/2024 3:03 PM [facility] Chloride 104 96 - 110 mmol/L LAB CHEMISTRY METHOD 11/21/2024 3:03 PM [facility] CO2 28 21 - 32 mmol/L LAB CHEMISTRY METHOD 11/21/2024 3:03 PM [facility] Anion Gap 6 3 - 11 LAB CHEMISTRY METHOD 11/21/2024 3:03 PM [facility] Glucose 94 70 - 100 mg/dL LAB CHEMISTRY METHOD 11/21/2024 3:03 PM [facility] BUN 23 5 - 25 mg/dL LAB CHEMISTRY METHOD 11/21/2024 3:03 PM [facility] Creatinine 0.69 0.50 - 1.10 mg/dL LAB CHEMISTRY METHOD 11/21/2024 3:03 PM [facility] eGFR 91 >=60 mL/min/1. 73m2 LAB CHEMISTRY METHOD 11/21/2024 3:03 PM [facility] Comment:Calculation based on the??Chronic Kidney Disease Epidemiology Collaboration (CKD-EPI) equation refit??without adjustment for race. BUN/Creatinine Ratio 33.3 LAB CHEMISTRY METHOD 11/21/2024 3:03 PM [facility] Calcium 9.3 8.5 - 10.5 mg/dL LAB CHEMISTRY METHOD 11/21/2024 3:03 PM [facility] AST (SGOT) 25 10 - 42 unit/L LAB CHEMISTRY METHOD 11/21/2024 3:03 PM [facility] ALT (SGPT) 31 10 - 60 unit/L LAB CHEMISTRY METHOD 11/21/2024 3:03 PM [facility] Alkaline Phosphatase 136(H) 42 - 121 unit/L LAB CHEMISTRY METHOD 11/21/2024 3:03 PM [facility] Total Protein 6.5 6.0 - 8.0 g/dL LAB CHEMISTRY METHOD 11/21/2024 3:03 PM [facility] Albumin 3.8 3.2 - 5.0 g/dL LAB CHEMISTRY METHOD 11/21/2024 3:03 PM [facility] Total Bilirubin 2.0(H) 0.0 - 1.4 mg/dL LAB CHEMISTRY METHOD 11/21/2024 3:03 PM T [facility] Blood Venous blood specimen / Unknown Venipuncture / Unknown 11/21/2024 1:42 PM EDT 11/21/2024 1:51 PM EDT us Nick Espana MD LAB BLOOD ORDERABLES Final Resu lt [facility] [address] [place] [address], from Last [address] [place] [address] [employer] MED[employer]ARE [employer]VANTAGE Care Teams Flood Control Engineer Relationship Specialty Start Date End Date Erlin Fragoso MD [address] [place] [address] PCP - General Internal Medicine 07/15/24
== END 2024-12-26 10:03 | disposition home or self-care (01) ==
LOC: HO.RHE 09:16
PROVIDERS: PCP Internal Medicine; Visit Provider Student in an Organized Health Care Education/Training Program
DX: M88.9 Osteitis deformans of unspecified bone (principal)
CPT/HCPCS: 99204; G2211

== ENCOUNTER 2024-12-26 10:13 | Outpatient (REF) | payer MEDICARE, SELFPAY ==
--- OUTSIDE RECORDS SUMMARY | 2024-12-26 11:52 | XMS_ITS | Clinical Summary ---
Author Organization [facility] Address [address] [place] [address] Care Team Providers Care Contact Clerk Name Role Phone Unavailable Primary Care Provider [...] this topic [address] [place] [id number]
--- OUTSIDE RECORDS SUMMARY | 2024-12-26 11:52 | XMS_ITS | Encounter Summary ---
Author Organization [facility] Address [address] [place] [address] Care Team Providers Care Pickling Operator Name Role Phone PatricatanmayJorge DO Unavailable [phone] Erlin Fragoso MD Primary Care Provider [phone] Jose Nicolas MD Unavailable [phone] Encounter Details Date Type Department Care Team ([facility] st Contact Info) Description 01/11/2024 Scanned Document [facility] [address] [phone] Adonay Rodriguez MD [address] [place] [phone] Social History Tobacco Use Types Packs/Day Years [...] on filedocumented in this encounter Care Teams Pickling Operator Relationship Specialty Start Date End Date Erlin Fragoso MD [address] [place] [address] PCP - General Internal Medicine 08/07/22 Jorge Worley DO [address] [place] [phone] Cardiovascular Disease 08/07/22 Jose Nicolas MD [address] [place] [phone] Surgery, Orthopedic 08/07/22 documented as of this encounter
--- OUTSIDE RECORDS SUMMARY | 2024-12-26 11:52 | XMS_ITS | Clinical Summary ---
Author Organization [facility] Address [address] [place] [address] Care Team Providers Care Outdoor Landscape Architect Name Role Phone Erlin Fragoso Primary Care Provider [phone] Social History Tobacco Use Types Packs/Day Years [...] complete this topic Insurance [employer] MEDICARE PPO [facility] Care Teams Outdoor Landscape Architect Relationship Specialty Start Date End Date Erlin Fragoso [address] [place] [address] PCP - General Primary Care 01/07/22
--- OUTSIDE RECORDS SUMMARY | 2024-12-26 11:52 | XMS_ITS | Encounter Summary ---
Author Organization [facility] Address [address] [place] [address] Care Team Providers Care Raschel Knitting Machine Operator Name Role Phone Jorge Worley DO Unavailable [phone] Erlin Fragoso MD Primary Care Provider [phone] Jose Nicolas MD Unavailable [phone] Encounter Details Date Type Department Care Team (Late st Contact Info) Description 08/28/2023 Scanned Document [facility] [place] [address] [place] [phone] Amari Ayers MD [address] [place] [address] [address] [place] [address] Social History Tobacco Use Types Packs/Day Years [...] on filedocumented in this encounter Care Teams Raschel Knitting Machine Operator Relationship Specialty Start Date End Date Erlin Fragoso MD [address] [place] [address] PCP - General Internal Medicine 08/07/22 Jorge Worley DO [address] [place] [id number] Cardiovascular Disease 08/07/22 Jose Nicolas MD [address] [place] [id number] Surgery, Orthopedic 08/07/22 documented as of this encounter
--- OUTSIDE RECORDS SUMMARY | 2024-12-26 11:52 | XMS_ITS | Encounter Summary ---
Author Organization [facility] Address [address] [place] [address] Care Team Providers Care Dev Technical Mgr Name Role Phone Jorge Worley DO Unavailable [phone] Erlin Fragoso MD Primary Care Provider [phone] Jose Nicolas MD Unavailable [phone] Encounter Details Date Type Department Care Team (Late st Contact Info) Description 09/18/2023 Scanned Document [facility] [address] [place] [phone] Amari Ayers MD [address] [place] [address] [address] [place] [address] Social History Tobacco Use Types Packs/Day Years [...] on filedocumented in this encounter Care Teams Dev Technical Mgr Relationship Specialty Start Date End Date Erlin Fragoso MD [address] [place] [address] PCP - General Internal Medicine 08/07/22 Jorge Worley DO [address] [place] [id number] Cardiovascular Disease 08/07/22 Jose Nicolas MD [address] [place] [phone] Surgery, Orthopedic 08/07/22 documented as of this encounter
--- OUTSIDE RECORDS SUMMARY | 2024-12-26 11:52 | XMS_ITS | Encounter Summary ---
Author Organization [facility] Address [address] [place] [address] Care Team Providers Care Marine Oiler Name Role Phone Jorge Worley DO Unavailable [phone] Erlin Fragoso MD Primary Care Provider [phone] Jose Nicolas MD Unavailable [phone] Encounter Details Date Type Department Care Team (Late st Contact Info) Description 08/15/2022 Telephone [facility] [place] [address] [facility] 2nd Floor [address] [place] [phone] Gina Dorsey MA [address] [place], [place] [phone] Social History Tobacco Use Types Packs/Day Years [...] Have you recently had an admission to SNF/Rehab/Retirement? No Have you traveled internationally or domestically in the last month? No documented in this encounter Plan of Treatment Not on file documented as of this encounter Visit Diagnoses Not on filedocumented in this encounter Care Teams Marine Oiler Relationship Specialty Start Date End Date Erlin Fragoso MD [address] [place] [address] PCP - General Internal Medicine 08/07/22 Jorge Worley DO [address] [place] [address] Cardiovascular Disease 08/07/22 Jose Nicolas MD 31 [facility] 100 [place] [address] Surgery, Orthopedic 08/07/22 documented as of this encounter
--- OUTSIDE RECORDS SUMMARY | 2024-12-26 11:52 | XMS_ITS | Clinical Summary ---
Author Organization [facility] [address] [facility] Address [address] [place] [address] Phone Care Team Providers Care Community Center Worker Name Role Phone Erlin Fragoso MD Primary Care Provider [phone] Allergies Active Allergy Reactions Criticality Noted Date [...] Team Description 12/01/2024 Telephone Gastroenterology - [address] [phone] Serafin Denise [place] Results 11/24/2024 10:30 AM EDT Office Visit Gastroenterology - [address] [phone] Nick Espana MD Abnormal LFTs (Primary Dx); Liver disease, unspecified; History of colon polyps; History of gastric bypass; Abdominal wall hernia 11/22/2024 4:54 PM EDT - 11/22/2024 11:59 PM EDT Hospital Encounter [facility] CT Scan [address] [place] [phone] History of gastric bypass; Abdominal pain, LUQ [...] UBALDO Negative Negative 11/25/2024 2:13 PM EDT [facility] Blood Venous blood specimen / Unknown Venipuncture / Unknown 11/24/2024 11:44 AM EDT 11/24/2024 12:09 PM EDT us Nick Espana MD LAB BLOOD ORDERABLES Final Resu lt [facility] [address] [place] [address], [place] [phone] * Smooth muscle antibody IgG (11/24/2024 11:44 AM EDT) Smooth Muscle (F-Actin) IgG Ab 4 <20 UNITS 11/28/2024 1:56 PM EDT [facility] Comment: Interpretation: Negative Test performed at [facility], [address] , [place], [place] ??[address] ? [phone] Beba Marinelli MD, PhD - Hotel Room Attendant Blood Venous blood specimen / Unknown Venipuncture / Unknown 11/24/2024 11:44 AM EDT 11/24/2024 12:09 PM EDT us Nick Espana MD LAB BLOOD ORDERABLES Final Resu lt [facility] [address] [place] [address] * Antimitochondrial antibody (11/24/2024 11:44 AM EDT) Pathologist [facility] [place] Mitochondrial Antibody Quantitative 3.5 <=20.0 units LAB CHEMISTRY METHOD 11/30/2024 11:42 AM EDT [facility] Mitochondrial Antibody Qualitative Negative Negative LAB CHEMISTRY METHOD 11/30/2024 11:42 AM EDT [facility] Blood Venous blood specimen / Unknown Venipuncture / Unknown 11/24/2024 11:44 AM EDT 11/24/2024 12:09 PM EDT Nick Espana MD LAB BLOOD ORDERABLES Final Resu lt Performing Organization Address City/[facility]/ZIP Co de Phone Number [facility] [address] [place] [address], * (ABNORMAL) Bilirubin, total and direct (11/24/2024 11:44 AM EDT) [facility] Total Bilirubin 2.5(H) 0.0 - 1.4 mg/dL LAB CHEMISTRY METHOD 11/24/2024 2:28 PM EDT [facility] Bilirubin, Direct 0.4(H) 0.0 - 0.3 mg/dL LAB CHEMISTRY METHOD 11/24/2024 2:28 PM EDT [facility] Bilirubin, Indirect 2.1(H) 0.0 - 1.1 mg/dL LAB CHEMISTRY METHOD 11/24/2024 2:28 PM EDT [facility] Blood Venous blood specimen / Unknown Venipuncture / Unknown 11/24/2024 11:44 AM EDT 11/24/2024 12:08 PM EDT us Nick Espana MD LAB BLOOD ORDERABLES Final Resu lt Performing Organization Address [facility]/ZIP Co de Phone Number [facility] [address] [place] [address], [place] [phone] * GGT (11/24/2024 11:44 AM EDT) GGT 24 7 - 64 unit/L LAB CHEMISTRY METHOD 11/24/2024 2:25 PM EDT [facility] Blood Venous blood specimen / Unknown Venipuncture / Unknown 11/24/2024 11:44 AM EDT 11/24/2024 12:08 PM EDT us Nick Espana MD LAB BLOOD ORDERABLES Final Resu lt Performing Organization Address [facility] Co de Phone Number [facility] [address] [place] [address], [place] [phone] * CT Abdomen Pelvis w Contrast (11/22/2024 [...] Signed Date: 11/25/2024 16:20 ET Workstation ID: [id number] Transcribed By: Self Edit Transcribed Date: 11/25/2024 [...] administered intravenously without incident. Oralcontrast administered. Scanner: tic revolution frontier 128 slice VCT Dose reduction [...] Signed Date: 11/25/2024 16:20 ET Workstation ID: [id number] Transcribed By: Self Edit Transcribed Date: 11/25/2024 16:14 ET Nick Espana MD IMG CT PROCEDURES Final Result * Methylmalonic acid, serum (11/21/2024 1:42 PM EDT) Methylmalonic Acid 0.23 <0.40 umol/L 11/25/2024 5:12 AM EDT [facility] Comment: If applicable, any drug confirmation testing reported here was developed and the performance characteristics determined by [facility]. This confirmation testing has not been cleared or approved by the FDA. The laboratory is regulated under CLIA as qualified to perform high-complexity testing. This test is used for patient testing purposes. It should not be regarded as investigational or for research. Test performed at [facility], [address] , [place], [place] ??[address] ? [phone] Beba Marinelli MD, PhD - Hotel Room Attendant Blood Venous blood specimen / Unknown Venipuncture / Unknown 11/21/2024 1:42 PM EDT 11/21/2024 1:51 PM EDT Nick Espana MD LAB BLOOD ORDERABLES Final Resu lt [facility] [address] [place] [address] * Iron and TIBC (11/21/2024 1:42 PM EDT) Iron 61 40 - 150 mcg/dL LAB CHEMISTRY METHOD 11/21/2024 3:03 PM EDT [facility] TIBC 391 250 - 450 mcg/dL LAB CHEMISTRY METHOD 11/21/2024 3:03 PM EDT [facility] Iron Saturation 16 15 - 50 % LAB CHEMISTRY METHOD 11/21/2024 3:03 PM EDT [facility] Blood Venous blood specimen / Unknown Venipuncture / Unknown 11/21/2024 1:42 PM EDT 11/21/2024 1:51 PM EDT Nick Espana MD LAB BLOOD ORDERABLES Final Resu lt Performing Organization Address City/[facility]/ZIP Co de Phone Number [facility] [address] [place] [address], [place] [phone] * Copper, serum (11/21/2024 1:42 PM EDT) Copper 1100 810 - 1990 ug/L 11/25/2024 6:08 AM EDT [facility] Comment: Copper values may be elevated to twice the normal levels in . Elevated results may be due to sample collected in a non-certified trace element-free tube. This test was developed and the performance characteristics determined by [facility]. It has not been cleared or approved by the FDA. The laboratory is regulated under CLIA as qualified to perform high-complexity testing. This test is used for patient testing purposes. It should not be regarded as investigational or for research. Test performed at [facility], [address] , [place], [place] ??[address] ? [phone] Beba Marinelli MD, PhD - Hotel Room Attendant Blood Venous blood specimen / Unknown Venipuncture / Unknown 11/21/2024 1:42 PM EDT 11/21/2024 1:51 PM EDT us Nick Espana MD LAB BLOOD ORDERABLES Final Resu lt [facility] [address] [place] [address] * Ferritin (11/21/2024 1:42 PM EDT) Ferritin 26 8 - 252 ng/mL LAB CHEMISTRY METHOD 11/21/2024 3:03 PM T [facility] Blood Venous blood specimen / Unknown Venipuncture / Unknown 11/21/2024 1:42 PM EDT 11/21/2024 1:51 PM EDT us Nick Espana MD LAB BLOOD ORDERABLES Final Resu lt [facility] [address] [place] [address], [place] [phone] * (ABNORMAL) Comprehensive metabolic panel (11/21/2024 1:42 PM EDT) Sodium 138 133 - 145 mmol/L LAB CHEMISTRY METHOD 11/21/2024 3:03 PM [facility] Potassium 3.6 3.5 - 5.5 mmol/L LAB CHEMISTRY METHOD 11/21/2024 3:03 PM [facility] Chloride 104 96 - 110 mmol/L LAB CHEMISTRY METHOD 11/21/2024 3:03 PM [facility] CO2 28 21 - 32 mmol/L LAB CHEMISTRY METHOD 11/21/2024 3:03 PM [facility] Anion Gap 6 3 - 11 LAB CHEMISTRY METHOD 11/21/2024 3:03 PM [facility] Glucose 94 70 - 100 mg/dL LAB CHEMISTRY METHOD 11/21/2024 3:03 PM [facility] BUN 23 5 - 25 mg/dL LAB CHEMISTRY METHOD 11/21/2024 3:03 PM [facility] Creatinine 0.69 0.50 - 1.10 mg/dL LAB CHEMISTRY METHOD 11/21/2024 3:03 PM [facility] eGFR 91 >=60 mL/min/1. 73m2 LAB CHEMISTRY METHOD 11/21/2024 3:03 PM [facility] Comment:Calculation based on the??Chronic Kidney Disease Epidemiology Collaboration (CKD-EPI) equation refit??without adjustment for race. BUN/Creatinine Ratio 33.3 LAB CHEMISTRY METHOD 11/21/2024 3:03 PM [facility] Calcium 9.3 8.5 - 10.5 mg/dL LAB CHEMISTRY METHOD 11/21/2024 3:03 PM [facility] AST (SGOT) 25 10 - 42 unit/L LAB CHEMISTRY METHOD 11/21/2024 3:03 PM [facility] ALT (SGPT) 31 10 - 60 unit/L LAB CHEMISTRY METHOD 11/21/2024 3:03 PM [facility] Alkaline Phosphatase 136(H) 42 - 121 unit/L LAB CHEMISTRY METHOD 11/21/2024 3:03 PM [facility] Total Protein 6.5 6.0 - 8.0 g/dL LAB CHEMISTRY METHOD 11/21/2024 3:03 PM [facility] Albumin 3.8 3.2 - 5.0 g/dL LAB CHEMISTRY METHOD 11/21/2024 3:03 PM [facility] Total Bilirubin 2.0(H) 0.0 - 1.4 mg/dL LAB CHEMISTRY METHOD 11/21/2024 3:03 PM T [facility] Blood Venous blood specimen / Unknown Venipuncture / Unknown 11/21/2024 1:42 PM EDT 11/21/2024 1:51 PM EDT us Nick Espana MD LAB BLOOD ORDERABLES Final Resu lt [facility] [address] [place] [address], from Last [address] [place] [address] [employer] MED[employer]ARE ADVANTAGE Care Teams Community Center Worker Relationship Specialty Start Date End Date Erlin Fragoso MD [address] [place] [address] PCP - General Internal Medicine 07/15/24
--- OUTSIDE RECORDS SUMMARY | 2024-12-26 11:52 | XMS_ITS | Encounter Summary ---
Author Organization [facility] Address [address] [place] [address] Care Team Providers Care Image Consultant Name Role Phone Jorge Worley DO Unavailable [phone] Erlin Fragoso MD Primary Care Provider [phone] Jose Nicolas MD Unavailable [phone] Encounter Details Date Type Department Care Team (Late st Contact Info) Description 09/23/2023 Scanned Document [facility] [address] [phone] Amari Ayers MD [address] [place] [address] Social History Tobacco Use Types Packs/Day Years [...] on filedocumented in this encounter Care Teams Image Consultant Relationship Specialty Start Date End Date Erlin Fragoso MD [address] [place] [address] PCP - General Internal Medicine 08/07/22 Jorge Worley DO [address] [place] [address] Cardiovascular Disease 08/07/22 Jose Nicolas MD [address] [place] [address] Surgery, Orthopedic 08/07/22 documented as of this encounter
--- OUTSIDE RECORDS SUMMARY | 2024-12-26 11:52 | XMS_ITS | Encounter Summary ---
Author Organization [facility] Address [address] [place] [address] Care Team Providers Care Mason Tender Name Role Phone Jroge Worley DO Unavailable [phone] Erlin Fragoso MD Primary Care Provider [phone] Jose Nicolas MD Unavailable [phone] Encounter Details Date Type Department Care Team (Late st Contact Info) Description 07/16/2023 Scanned Document [facility] [address] [place] [address] Adonay Rodriguez MD 31 [facility] [address] [place] [address] Social History Tobacco Use Types Packs/Day Years [...] on filedocumented in this encounter Care Teams Mason Tender Relationship Specialty Start Date End Date Erlin Fragoso MD [address] [place] [address] PCP - General Internal Medicine 08/07/22 Jorge Worley DO [address] [place] [address] Cardiovascular Disease 08/07/22 Jose Nicolas MD [address] [place] [address] Surgery, Orthopedic 08/07/22 documented as of this encounter
--- OUTSIDE RECORDS SUMMARY | 2024-12-26 11:52 | XMS_ITS | Clinical Summary ---
Author Organization [facility] Address [address] [place] [address] Care Team Providers Care Merchandise Stocker Name Role Phone Jorge Worley DO Unavailable [phone] Erlin Fragoso MD Primary Care Provider [phone] Jose Nicolas MD Unavailable [phone] Allergies Active Allergy Reactions Criticality Noted Date [...] mouth every morning. 04/21/2022 Active glucose blood (ProfitBricksTouch Ultra) test strip Inject 1 each under the skin. 02/23/2022 Active hydrochlorothiaz yazmin (HYDRODIURIL) 12.5 MG tablet Take 1 tablet [...] 2:15 PM EDT [facility] [address] [phone] Adonay Rodriguez MD Spondylosis of lumbar region without myelopathy or radiculopathy (Primary Dx) 11/15/2024 11:15 AM EDT Ancillary Procedure Orthopedic [address] [phone] 11/15/2024 10:45 AM EDT Office Visit Orthopedic [address] [address] Siva Cheatham MD Pain in left ankle [...] this topic Medical Devices Implanted Type Area Music Industry Intern Device Identifier Shelf Expiration Date Model / Serial / Lot 6191-1-001 Cement Bone Smpx P Radopq Fd Sterl - [id number] Implanted:Qty : 1 on 09/05/2022 by Jose Nicolas MD at [facility] Cement Right: Knee [employer] - DIV STRY [id number] 02/27/2025 6191- / / [id number] 6191- Cement Bone Smpx P Radopq Fd Sterl - [id number] Implanted:Qty : 1 on 09/05/2022 by Jose Nicolas MD at [facility] Cement Right: Knee [employer] - DIV STRY [id number] 02/27/2025 6191- / / [id number] 6191- Cement Bone Smpx P Radopq Fd Sterl - [id number] Implanted:Qty : 1 on 09/05/2022 by Jose Nicolas MD at [facility] Cement Right: Knee [employer] DIV STRY [id number] 02/27/2025 6191- / / [id number] Cement Bone Smpx P Radopq Fd Sterl - [id number] Implanted:Qty : 1 on 09/05/2022 by Jose Nicolas MD at [facility] Cement Right: Knee [employer] DIV STRY [id number] 02/27/2025 6191-001 / / [id number] Component Femoral 5+ Knee Cndrl Cement Cnstrn Persona Cocr - [id number] Implanted:Qty : 1 on 09/05/2022 by Jose Nicolas MD at [facility] Joint Prosthesis Right: Knee [employer] [id number] 07/01/2032 [id number] / / [id number] Component Tibial Persona C Knee Right Npor Revision Fixation - [id number] Implanted:Qty : 1 on 09/05/2022 by Jose Nicolas MD at [facility] Joint Prosthesis Right: Knee [employer] [id number] 07/07/2032 [id number] / / [id number] Surface Articular 12mm Persona 3-5 Cd Knee Right Vivacit-E - [id number] Implanted:Qty : 1 on 09/05/2022 by Jose Nicolas MD at [facility] Joint Prosthesis Right: Knee [employer] [id number] 06/10/2026 [id number] / / [id number] Restrictor Cement 25mm Owens 16-21mm Hip Fem Plug Sterl - [id number] Implanted:Qty : 1 on 09/05/2022 by oJse Nicolas MD at [facility] Joint Prosthesis Right: Knee [employer] [id number] 01/06/2032 [id number] / / [id number] 5549-A-130 Augment Tibial Trthln C Cone Knee Tritanium Smtr Sterl Lf - [id number] Implanted:Qty : 1 on 09/05/2022 by Jose Nicolas MD at [facility] Joint Prosthesis Right: Knee [employer] DIV STRY [id number] 02/16/2027 5549-A-130 / / [id number] Augment Femoral 5mm Persona 5 5+ Knee Dist Sterl Lf - [id number] Implanted:Qty : 1 on 09/05/2022 by Jose Nicolas MD at [facility] Joint Prosthesis Right: Knee [employer] [id number] 06/03/2032 [id number] / / [id number] Stem Tibial 135+ Mm 18mm Persona Straight Knee Spline - [id number] Implanted:Qty : 1 on 09/05/2022 by Jose Nicolas MD at [facility] Joint Prosthesis Right: Knee [employer] [id number] 07/04/2032 [id number] / / [id number] Stem Extension 30+ Mm 14mm Persona Taper Knee Tibia - [id number] Implanted:Qty : 1 on 09/05/2022 by Jose Nicolas MD at [facility] Joint Prosthesis Right: Knee [employer] [id number] 07/20/2032 [id number] / / [id number] Procedures Procedure Name Priority Date/Time Associated Diagnosis [...] 3+ views-Left (11/15/2024 11:21 AM EDT) Narrative [facility] - 11/15/2024 11:21 AM EDT [facility] and images reviewed by orthopedic provider. ??Any findings are documented within ambulatory encounter note on date of service. Siva Cheatham MD [facility] ORDERA BLES Final Result Performing Organization Address [facility] Co de Phone Number OA * XR Ankle 2 views-Left (11/15/2024 11:21 AM EDT) Narrative [facility] - 11/15/2024 11:21 AM EDT This [facility] and images reviewed by orthopedic provider. ??Any findings are documented within ambulatory encounter note on date of service. Siva Cheatham MD [facility] ORDERA BLES Final Result Performing Organization Address [facility]/ZIP Co de Phone Number OA * (ABNORMAL) Basic Metabolic Panel (Early AM) (09/06/2022 6:43 AM EST) Glucose 118(H) 65 - 99 mg/dL 09/06/2022 8:[address] [facility] Comment:Fasting: <100 mg/dL, Non-Fasting: <200 mg/dL (ADA 2005) Blood Urea Nitrogen (BUN) 20 8 - 21 mg/dL 09/06/2022 8:[address] [facility] Creatinine 0.7 0.4 - 1.1 mg/dL 09/06/2022 8:[address] [facility] eGFR >60 >59 09/06/2022 8:[address] [facility] Comment:MDRD in mL/min/1.73 sq meters. Sodium 142 136 - 145 mmol/L 09/06/2022 8:[address] [facility] Potassium 3.9 3.4 - 5.3 mmol/L 09/06/2022 8:[address] [facility] Chloride 104 98 - 107 mmol/L 09/06/2022 8:[address] [facility] CO2 28 22 - 33 mmol/L 09/06/2022 8:[address] [facility] Anion Gap 10 7 - 17 09/06/2022 8:[address] [facility] Calcium 8.9 8.7 - 10.5 mg/dL 09/06/2022 8:[address] [facility] BUN/Creatinine Ratio 29(H) 10.0 - 25.0 Ratio 09/06/2022 8:[address] [facility] Blood specimen (specimen) (Plasma/Serum) 09/06/2022 6:43 AM EST 09/06/2022 7:43 AM EST us [facility] BLOOD ORDERABLES Final Result HOSPITAL LAB See Below [facility] [address] [place] [address] * (ABNORMAL) Hemoglobin A1c with Estimated Average Glucose (08/18/2022 11:15 AM EST) Hemoglobin A1C 7.2(H) <5.7 % 08/18/2022 8:[address] [facility] Comment: A1c% ? Interpretation 5.7 - 6.0 ?Increase risk of diabetes 6.1 - 6.4 ?Higher risk of diabetes > or = 6.5 ?? Consistent with diabetes Diabetes Care, 33(Supp 1):S1-S61, 2010 Estimated Average Glucose 160 mg/dL 08/18/2022 8:55 PM EST [facility] Blood specimen (specimen) Blood specimen / Unknown 08/18/2022 11:15 AM EST 08/18/2022 8:17 PM EST us Zayda Mirza PHYSICIAN CODING SPECIALIST LAB BLOOD ORDERABLES Final R esult HOSPITAL LAB See Below [address] [address] from Last 3 Months or Most Recently Relevant to Health Maintenance Insurance [address] [place] [address] [facility] [address] [place] [address] [facility] MEDICARE [address] [place] [address] [employer] MGD MEDICARE Advance Directives Documents on File Type Date Recorded 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
--- OUTSIDE RECORDS SUMMARY | 2024-12-26 11:52 | XMS_ITS | Encounter Summary ---
Author Organization [facility] Address [address] [place] [address] Care Team Providers Care Costumer Name Role Phone Jorge Worley DO Unavailable [phone] Erlin Fragoso MD Primary Care Provider [phone] Jose Nicolas MD Unavailable [phone] Encounter Details Date Type Department Care Team (Late st Contact Info) Description 09/23/2023 Scanned Document [facility] [address] [phone] Amari Ayers MD [address] [place] [address] Social History Tobacco Use Types Packs/Day Years [...] on filedocumented in this encounter Care Teams Costumer Relationship Specialty Start Date End Date Erlin Fragoso MD [address] [place] [address] PCP - General Internal Medicine 08/07/22 Jorge Worley DO [address] [place] [address] Cardiovascular Disease 08/07/22 Jose Nicolas MD [address] [place] [address] Surgery, Orthopedic 08/07/22 documented as of this encounter
--- OUTSIDE RECORDS SUMMARY | 2024-12-26 11:52 | XMS_ITS | Encounter Summary ---
Author Organization [facility] Address [address] [place] [address] Care Team Providers Care Material Crew Supervisor Name Role Phone PatricatanmayJorge DO Unavailable [phone] Erlin Fragoso MD Primary Care Provider [phone] Jose Nicolas MD Unavailable [phone] Encounter Details Date Type Department Care Team ([facility] st Contact Info) Description 08/15/2024 Scanned Document [facility] [address] [phone] Adonay Rodriguez MD [address] [place] [phone] Social History Tobacco Use Types Packs/Day Years [...] on filedocumented in this encounter Care Teams Material Crew Supervisor Relationship Specialty Start Date End Date Erlin Fragoso MD [address] [place] [address] PCP - General Internal Medicine 08/07/22 Jorge Worley DO [address] [place] [address] Cardiovascular Disease 08/07/22 Jose Nicolas MD [address] [place] [address] Surgery, Orthopedic 08/07/22 documented as of this encounter
[2024-12-26 13:14] LABS: MANUAL DIFF FLAG NO
[2024-12-26 13:34] LABS: Basophils Absolute Auto 0.1 X10*3/uL (0.0-0.2); Basophils Percent Auto 1.2 % (0-2); Eosinophils Absolute Auto 0.4 X10*3/uL (0.0-0.4); Eosinophils Percent Auto 4.8 % (0-4); Hematocrit 40.1 % (37.0-47.0); Hemoglobin 13.2 g/dl (12.0-16.0); Imm Gran Abs Auto 0.02 X10*3/uL (0.00-0.03); Imm Gran Pct Auto 0.3 % (0.0-0.4); Lymphocytes Absolute Auto 1.8 X10*3/uL (1.2-4.9); Lymphocytes Percent Auto 23.5 % (20-40); Mean Corpuscular HGB Conc 32.9 g/dl (31.0-35.0); Mean Corpuscular Hemoglobin 27.4 pg (27.0-33.0); Mean Corpuscular Volume 83.4 fL (80.0-98.0); Mean Platelet Volume 11.9 fL (9.4-12.3); Monocytes Absolute Auto 0.4 X10*3/uL (0.1-1.2); Monocytes Percent Auto 5.2 % (2-11); Neutrophils Absolute Auto 4.9 x10*3/uL (2.0-8.3); Platelet Count 235 X10*3/uL (160-400); Red Blood Count 4.81 X10*6/uL (4.20-5.50); Red Cell Distribution Width 13.5 % (11.0-16.0); White Blood Count 7.5 X10*3/uL (4.8-10.8)
[2024-12-26 14:09] LABS: Alanine Aminotransferase 22 U/L (0-31); Albumin Level 4.3 g/dL (3.5-5.0); Alkaline Phosphatase 129 U/L (39-117); Anion Gap 11 (12-20); Aspartate Amino Transferase 35 U/L (5-31); Bilirubin Total 1.9 mg/dL (0.0-1.0); Blood Urea Nitrogen 27 mg/dL (9-16); C Reactive Protein 0.13 mg/dL (< or = 0.50); Calcium 9.3 mg/dL (8.4-10.2); Carbon Dioxide 28 mmol/L (22-29); Chloride 107 mmol/L (96-108); Estimated Glomerular Filt Rate > 60; Glucose Random 85 mg/dL (60-115); Potassium 3.7 mmol/L (3.3-5.1); Sodium 142 mmol/L (135-145); Total Protein 6.8 g/dL (6.5-8.0)
[2024-12-26 14:14] LABS: Erythrocyte Sedimentation Rate 5 MM/HR (0-20)
[2024-12-28 17:43] LABS: Procollagen Type I Intact N 91 mcg/L (see note)
== END 2024-12-26 10:14 | disposition home or self-care (01) ==
LOC: HO.10HDL 10:13
PROVIDERS: Visit Provider Student in an Organized Health Care Education/Training Program
DX: M88.9 Osteitis deformans of unspecified bone (principal)
CPT/HCPCS: 80053; 82306; 83519; 84075; 84165; 85025; 85652; 86140; 86335

== ENCOUNTER 2024-12-30 14:49 | Outpatient (REF) | payer MEDICARE, SELFPAY ==
--- NOTE | ~2024-12-30 | US_ITS ---
CLINICAL HISTORY: N20.0 - Calculus of kidney US Renal Comparison: 08/17/2024 Findings: Right kidney normal size and echotexture, 9.3 cm length. Unchanged of the circumscribed likely incidental angiomyolipomas measuring 1.1 x 0.9 x 0.9 cm and 0.5 x 0.4 x 0.3 cm. Left kidney normal size and echotexture, 8.9 cm length. Unchanged are the possible angiomyolipomas measuring 0.6 x 0.5 x 0.5 cm and 0.5 x 0.5 x 0.5 cm. No collecting system dilatation of either kidney. Normal color Doppler. IMPRESSION: 1. 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 No acute findings. This document has been electronically signed by: Mark Galvan MD on 12/31/2024 09:04:16
--- OUTSIDE RECORDS SUMMARY | 2024-12-30 14:52 | XMS_ITS | Clinical Summary ---
Author Organization [facility] [address] [facility] Address [address] [place] [address] Phone Care Team Providers Care Ore Trimmer Name Role Phone Erlin Fragoso MD Primary Care Provider [phone] Allergies Active Allergy Reactions Criticality Noted Date [...] Team Description 12/01/2024 Telephone Gastroenterology - [address] [phone] Serafin Denise PR Results 11/24/2024 10:30 AM EDT Office Visit Gastroenterology - [address] [phone] Nick Espana MD Abnormal LFTs (Primary Dx); Liver disease, unspecified; History of colon polyps; History of gastric bypass; Abdominal wall hernia 11/22/2024 4:54 PM EDT - 11/22/2024 11:59 PM EDT Hospital Encounter [facility] CT Scan [address] [place] [phone] History of gastric bypass; Abdominal pain, LUQ [...] UBALDO Negative Negative 11/25/2024 2:[address] [facility] Blood Venous blood specimen / Unknown Venipuncture / Unknown 11/24/2024 11:44 AM EDT 11/24/2024 12:09 PM EDT us Nick Espana MD LAB BLOOD ORDERABLES Final Resu lt [facility] [address] [place] [address], [place] [phone] * Smooth muscle antibody IgG (11/24/2024 11:44 AM EDT) Smooth Muscle (F-Actin) IgG Ab 4 <20 UNITS 11/28/2024 1:56 PM EDT [facility] Comment: Interpretation: Negative Test performed at [facility], [address] , [place], [place] ??[address] ? [phone] Beba Marinelli MD, PhD - Molded Goods Spot Picker Blood Venous blood specimen / Unknown Venipuncture / Unknown 11/24/2024 11:44 AM EDT 11/24/2024 12:09 PM EDT us Nick Espana MD LAB BLOOD ORDERABLES Final Resu lt [facility] [address] [place] [address] * Antimitochondrial antibody (11/24/2024 11:44 AM EDT) Pathologist [facility] Mitochondrial Antibody Quantitative 3.5 <=20.0 units LAB CHEMISTRY METHOD 11/30/2024 11:[address] [facility] Mitochondrial Antibody Qualitative Negative Negative LAB CHEMISTRY METHOD 11/30/2024 11:[address] [facility] Blood Venous blood specimen / Unknown Venipuncture / Unknown 11/24/2024 11:44 AM EDT 11/24/2024 12:09 PM EDT Nick Espana MD LAB BLOOD ORDERABLES Final Resu lt Performing Organization Address City/[facility]/ZIP Co de Phone Number [facility] [address] [place] [address], * (ABNORMAL) Bilirubin, total and direct (11/24/2024 11:44 AM EDT) [facility] Total Bilirubin 2.5(H) 0.0 - 1.4 mg/dL LAB CHEMISTRY METHOD 11/24/2024 2:[address] [facility] Bilirubin, Direct 0.4(H) 0.0 - 0.3 mg/dL LAB CHEMISTRY METHOD 11/24/2024 2:[address] [facility] Bilirubin, Indirect 2.1(H) 0.0 - 1.1 mg/dL LAB CHEMISTRY METHOD 11/24/2024 2:[address] [facility] Blood Venous blood specimen / Unknown Venipuncture / Unknown 11/24/2024 11:44 AM EDT 11/24/2024 12:08 PM EDT us Nick Espana MD LAB BLOOD ORDERABLES Final Resu lt Performing Organization Address [facility]/ZIP Co de Phone Number [facility] [address] [place] [address], [place] [phone] * GGT (11/24/2024 11:44 AM EDT) GGT 24 7 - 64 unit/L LAB CHEMISTRY METHOD 11/24/2024 2:[address] [facility] Blood Venous blood specimen / Unknown Venipuncture / Unknown 11/24/2024 11:44 AM EDT 11/24/2024 12:08 PM EDT us Nick Espana MD LAB BLOOD ORDERABLES Final Resu lt Performing Organization Address [facility] Co de Phone Number [facility] [address] [place] [address], [place] [phone] * CT Abdomen Pelvis w Contrast (11/22/2024 [...] Signed Date: 11/25/2024 16:20 ET Workstation ID: [id number] Transcribed By: Self Edit Transcribed Date: 11/25/2024 [...] administered intravenously without incident. Oralcontrast administered. Scanner: [email or web address] 128 slice VCT Dose reduction [...] Signed Date: 11/25/2024 16:20 ET Workstation ID: [id number] Transcribed By: Self Edit Transcribed Date: 11/25/2024 16:14 ET Nick Espana MD IMG CT PROCEDURES Final Result * Methylmalonic acid, serum (11/21/2024 1:42 PM EDT) Methylmalonic Acid 0.23 <0.40 umol/L 11/25/2024 5:12 AM EDT [facility] Comment: If applicable, any drug confirmation testing reported here was developed and the performance characteristics determined by [facility]. This confirmation testing has not been cleared or approved by the FDA. The laboratory is regulated under CLIA as qualified to perform high-complexity testing. This test is used for patient testing purposes. It should not be regarded as investigational or for research. Test performed at [facility], [address] , [place], [place] ??[address] ? [phone] Beba Marinelli MD, PhD - Molded Goods Spot Picker Blood Venous blood specimen / Unknown Venipuncture / Unknown 11/21/2024 1:42 PM EDT 11/21/2024 1:51 PM EDT Nick Espana MD LAB BLOOD ORDERABLES Final Resu lt [facility] [address] [place] [address] * Iron and TIBC (11/21/2024 1:42 PM EDT) Iron 61 40 - 150 mcg/dL LAB CHEMISTRY METHOD 11/21/2024 3:[address] [facility] TIBC 391 250 - 450 mcg/dL LAB CHEMISTRY METHOD 11/21/2024 3:[address] [facility] Iron Saturation 16 15 - 50 % LAB CHEMISTRY METHOD 11/21/2024 3:[address] [facility] Blood Venous blood specimen / Unknown Venipuncture / Unknown 11/21/2024 1:42 PM EDT 11/21/2024 1:51 PM EDT Nick Espana MD LAB BLOOD ORDERABLES Final Resu lt Performing Organization Address City/[facility]/ZIP Co de Phone Number [facility] [address] [place] [address], [place] [phone] * Copper, serum (11/21/2024 1:42 PM EDT) Copper 1100 810 - 1990 ug/L 11/25/2024 6:08 AM EDT [facility] Comment: Copper values may be elevated to twice the normal levels in . Elevated results may be due to sample collected in a non-certified trace element-free tube. This test was developed and the performance characteristics determined by [facility]. It has not been cleared or approved by the FDA. The laboratory is regulated under CLIA as qualified to perform high-complexity testing. This test is used for patient testing purposes. It should not be regarded as investigational or for research. Test performed at [facility], [address] , [place], [place] ??[address] ? [phone] Beba Marinelli MD, PhD - Molded Goods Spot Picker Blood Venous blood specimen / Unknown Venipuncture / Unknown 11/21/2024 1:42 PM EDT 11/21/2024 1:51 PM EDT us Nick Espana MD LAB BLOOD ORDERABLES Final Resu lt [facility] [address] [place] [address] * Ferritin (11/21/2024 1:42 PM EDT) Ferritin 26 8 - 252 ng/mL LAB CHEMISTRY METHOD 11/21/2024 3:[address] [facility] Blood Venous blood specimen / Unknown Venipuncture / Unknown 11/21/2024 1:42 PM EDT 11/21/2024 1:51 PM EDT us Nick Espana MD LAB BLOOD ORDERABLES Final Resu lt [facility] [address] [place] [address], [place] [phone] * (ABNORMAL) Comprehensive metabolic panel (11/21/2024 1:42 PM EDT) Sodium 138 133 - 145 mmol/L LAB CHEMISTRY METHOD 11/21/2024 3:03 PM [facility] Potassium 3.6 3.5 - 5.5 mmol/L LAB CHEMISTRY METHOD 11/21/2024 3:03 PM [facility] Chloride 104 96 - 110 mmol/L LAB CHEMISTRY METHOD 11/21/2024 3:03 PM [facility] CO2 28 21 - 32 mmol/L LAB CHEMISTRY METHOD 11/21/2024 3:03 PM [facility] Anion Gap 6 3 - 11 LAB CHEMISTRY METHOD 11/21/2024 3:03 PM [facility] Glucose 94 70 - 100 mg/dL LAB CHEMISTRY METHOD 11/21/2024 3:03 PM [facility] BUN 23 5 - 25 mg/dL LAB CHEMISTRY METHOD 11/21/2024 3:03 PM [facility] Creatinine 0.69 0.50 - 1.10 mg/dL LAB CHEMISTRY METHOD 11/21/2024 3:03 PM [facility] eGFR 91 >=60 mL/min/1. 73m2 LAB CHEMISTRY METHOD 11/21/2024 3:03 PM [facility] Comment:Calculation based on the??Chronic Kidney Disease Epidemiology Collaboration (CKD-EPI) equation refit??without adjustment for race. BUN/Creatinine Ratio 33.3 LAB CHEMISTRY METHOD 11/21/2024 3:03 PM [facility] Calcium 9.3 8.5 - 10.5 mg/dL LAB CHEMISTRY METHOD 11/21/2024 3:03 PM [facility] AST (SGOT) 25 10 - 42 unit/L LAB CHEMISTRY METHOD 11/21/2024 3:03 PM [facility] ALT (SGPT) 31 10 - 60 unit/L LAB CHEMISTRY METHOD 11/21/2024 3:03 PM [facility] Alkaline Phosphatase 136(H) 42 - 121 unit/L LAB CHEMISTRY METHOD 11/21/2024 3:03 PM [facility] Total Protein 6.5 6.0 - 8.0 g/dL LAB CHEMISTRY METHOD 11/21/2024 3:03 PM [facility] Albumin 3.8 3.2 - 5.0 g/dL LAB CHEMISTRY METHOD 11/21/2024 3:03 PM [facility] Total Bilirubin 2.0(H) 0.0 - 1.4 mg/dL LAB CHEMISTRY METHOD 11/21/2024 3:[address] [facility] Blood Venous blood specimen / Unknown Venipuncture / Unknown 11/21/2024 1:42 PM EDT 11/21/2024 1:51 PM EDT us Nick Espana MD LAB BLOOD ORDERABLES Final Resu lt [facility] [address] [place] [address], from Last [address] [place] [address] [employer] MEDICARE ADVANTAGE Care Teams Ore Trimmer Relationship Specialty Start Date End Date Erlin Fragoso MD [address] [place] [address] PCP - General Internal Medicine 07/15/24
--- OUTSIDE RECORDS SUMMARY | 2024-12-30 14:52 | XMS_ITS | Clinical Summary ---
Author Organization [facility] Address [address] [place] [address] Care Team Providers Care It Architecture Analyst Name Role Phone Jorge Worley DO Unavailable [phone] Erlin Fragoso MD Primary Care Provider [phone] Jose Nicolas MD Unavailable Allergies Active Allergy [...] mouth every morning. 04/21/2022 Active glucose blood (PinocularTouch Ultra) test strip Inject 1 each under [...] 2:15 PM EDT [facility] [address] [phone] Adonay Rodriguez MD Spondylosis of lumbar region without myelopathy or radiculopathy (Primary Dx) 11/15/2024 11:15 AM EDT Ancillary Procedure [facility] [address] [phone] 11/15/2024 10:45 AM EDT Office Visit Orth[facility] [address] [address] Siva Cheatham MD Pain in left ankle [...] this topic Medical Devices Implanted Type Area System Development Manager Device Identifier Shelf Expiration Date Model / Serial / Lot 6191-1-001 Cement Bone Smpx P Radopq Fd Sterl - [id number] Implanted:Qt y: 1 on 09/05/2022 by Jose Nicolas MD at [facility] Cement Right : Knee [employer]ISY [employer] - [id number] 02/27/2025 6191- / / [id number] 6191- Cement Bone Smpx P Radopq Fd Sterl - [id number] Implanted:Qt y: 1 on 09/05/2022 by Jose Nicolas MD at [facility] Cement Right : Knee [employer] - [id number] 02/27/2025 6191- / / [id number] 6191- Cement Bone Smpx P Radopq Fd Sterl - [id number] Implanted:Qt y: 1 on 09/05/2022 by Jose Nicolas MD at [facility] Cement Right : Knee [employer] - [id number] 02/27/2025 6191- / / [id number] 6191- Cement Bone Smpx P Radopq Fd Sterl - [id number] Implanted:Qt y: 1 on 09/05/2022 by Jose Nicolas MD at [facility] Cement Right : Knee [employer] - [id number] 02/27/2025 6191--001 / / [id number] Component Femoral 5+ Knee Cndrl Cement Cnstrn Persona Cocr - [id number] Implanted:Qt y: 1 on 09/05/2022 by Jose Nicolas MD at [facility] Joint Prosthesis Right : Knee [employer] [id number] 07/01/2032 [id number] / / [id number] Component Tibial Persona C Knee Right Npor Revision Fixation - [id number] Implanted:Qt y: 1 on 09/05/2022 by Jose Nicolas MD at [facility] Joint Prosthesis Right : Knee [employer] [id number] 07/07/2032 [id number] / / [id number] Surface Articular 12mm Persona 3-5 Cd Knee Right Vivacit-E - [id number] Implanted:Qt y: 1 on 09/05/2022 by Jose Nicolas MD at [facility] Joint Prosthesis Right : Knee [employer] [id number] 06/10/2026 [id number] / / [id number] Restrictor Cement 25mm Owens 16-21mm Hip Fem Plug Sterl - [id number] Implanted:Qt y: 1 on 09/05/2022 by Jose Nicolas MD at [facility] Joint Prosthesis Right : Knee [employer] [id number] 01/06/2032 [id number] / / [id number] 5549-A-130 Augment Tibial Trthln C Cone Knee Tritanium Smtr Sterl Lf - [id number] Implanted:Qt y: 1 on 09/05/2022 by Jose Nicolas MD at [facility] Joint Prosthesis Right : Knee [employer] - [id number] 02/16/2027 5549-A-130 / / [id number] Augment Femoral 5mm Persona 5 5+ Knee Dist Sterl Lf - [id number] Implanted:Qt y: 1 on 09/05/2022 by Jose Nicolas MD at [facility] Joint Prosthesis Right : Knee [employer] [id number] 06/03/2032 [id number] / / [id number] Stem Tibial 135+ Mm 18mm Persona Straight Knee Spline - [id number] Implanted:Qt y: 1 on 09/05/2022 by Jose Nicolas MD at [facility] Joint Prosthesis Right : Knee [employer] [id number] 07/04/2032 [id number] / / [id number] Stem Extension 30+ Mm 14mm Persona Taper Knee Tibia - [id number] Implanted:Qt y: 1 on 09/05/2022 by Jose Nicolas MD at [facility] Joint Prosthesis Right : Knee [employer] [id number] 07/20/2032 [id number] / / [id number] Procedures Procedure Name Priority Date/Time Associated Diagnosis [...] 3+ views-Left (11/15/2024 11:21 AM EDT) Narrative [facility] - 11/15/2024 11:21 AM EDT [facility] and images reviewed by orthopedic provider. ??Any findings are documented within ambulatory encounter note on date of service. Siva Cheatham MD [facility] DIAGNOSTIC IMAGING ORDERA BLES Final Result Performing Organization Address [facility] Co de Phone Number OA * XR Ankle 2 views-Left (11/15/2024 11:21 AM EDT) Narrative [facility] - 11/15/2024 11:21 AM EDT This [facility] and images reviewed by orthopedic provider. ??Any findings are documented within ambulatory encounter note on date of service. Siva Cheatham MD [facility] DIAGNOSTIC IMAGING ORDERA BLES Final Result Performing Organization Address [facility]/ZIP Co de Phone Number OA * (ABNORMAL) Basic Metabolic Panel (Early AM) (09/06/2022 6:43 AM EST) Glucose 118(H) 65 - 99 mg/dL 09/06/2022 8:18 AM [facility] Comment:Fasting: <100 mg/dL, Non-Fasting: <200 mg/dL (ADA 2005) Blood Urea Nitrogen (BUN) 20 8 - 21 mg/dL 09/06/2022 8:18 AM [facility] Creatinine 0.7 0.4 - 1.1 mg/dL 09/06/2022 8:18 AM [facility] eGFR >60 >59 09/06/2022 8:18 AM [facility] Comment:MDRD in mL/min/1.73 sq meters. Sodium 142 136 - 145 mmol/L 09/06/2022 8:18 AM [facility] Potassium 3.9 3.4 - 5.3 mmol/L 09/06/2022 8:18 AM [facility] Chloride 104 98 - 107 mmol/L 09/06/2022 8:18 AM [facility] CO2 28 22 - 33 mmol/L 09/06/2022 8:18 AM [facility] Anion Gap 10 7 - 17 09/06/2022 8:18 AM [facility] Calcium 8.9 8.7 - 10.5 mg/dL 09/06/2022 8:18 AM [facility] BUN/Creatinine Ratio 29(H) 10.0 - 25.0 Ratio 09/06/2022 8:18 AM [facility] Blood specimen (specimen) (Plasma/Serum) 09/06/2022 6:43 AM EST 09/06/2022 7:43 AM EST us [facility] BLOOD ORDERABLES Final Result HOSPITAL LAB See Below [facility] [address] [place] [address] * (ABNORMAL) Hemoglobin A1c with Estimated Average Glucose (08/18/2022 11:15 AM EST) Hemoglobin A1C 7.2(H) <5.7 % 08/18/2022 8:55 PM [facility] Comment: A1c% ? Interpretation 5.7 - 6.0 ?Increase risk of diabetes 6.1 - 6.4 ?Higher risk of diabetes > or = 6.5 ?? Consistent with diabetes Diabetes Care, 33(Supp 1):S1-S61, 2010 Estimated Average Glucose 160 mg/dL 08/18/2022 8:55 PM EST [facility] Blood specimen (specimen) Blood specimen / Unknown 08/18/2022 11:15 AM EST 08/18/2022 8:17 PM EST us Zayda Mirza ELECTRICIAN SUPERVISOR [employer] LAB BLOOD ORDERABLES Final R esult HOSPITAL LAB See Below [address] [address] from Last 3 Months or Most Recently Relevant to Health Maintenance Insurance [address] [place] [address] [facility] MEDICARE [address] [place] [address] [facility] [address] [place] [address] A[employer] MGD MEDICARE Advance Directives Documents on File Type Date Recorded Patient Relish Blender Expl anation Advance Directive-Scan 07/14/2023 CHECK OUT * Full Code (Latest Code Status on File) Date Activated Date Inactivated Comments 09/05/2022 5:30 PM * Full Code Date Activated Date Inactivated Comments 09/05/2022 8:01 AM 09/05/2022 5:30 PM Care Teams It Architecture Analyst Relationship Specialty Start Date End Date Erlin Fragoso MD [address] [place] [address] PCP - General Internal Medicine 08/07/22 Jorge Worley DO [address] [place] [address] Cardiovascular Disease 08/07/22 Jose Nicolas MD [address] [address] Surgery, Orthopedic 08/07/22
--- OUTSIDE RECORDS SUMMARY | 2024-12-30 14:52 | XMS_ITS | Encounter Summary ---
Author Organization [facility] Address [address] [place] [address] Care Team Providers Care Technology Integration Specialist Name Role Phone Jorge Worley DO Unavailable [phone] Erlin Fragoso MD Primary Care Provider [phone] Jose Nicolas MD Unavailable [phone] Encounter Details Date Type Department Care Team (Late st Contact Info) Description 08/15/2022 Telephone [facility] [address] [facility] 2nd [address] [place] [phone] Gina Dorsey MA [address] [place], [place] [phone] Social History Tobacco Use Types Packs/Day Years [...] Have you recently had an admission to SNF/Rehab/Half-Way? No Have you traveled internationally or domestically in the last month? No documented in this encounter Plan of Treatment Not on file documented as of this encounter Visit Diagnoses Not on filedocumented in this encounter Care Teams Technology Integration Specialist Relationship Specialty Start Date End Date Erlin Fragoso MD [address] [place] [address] PCP - General Internal Medicine 08/07/22 Jorge Worley DO [address] [place] [address] Cardiovascular Disease 08/07/22 Jose Nicolas MD 31 [facility] [address] [place] [address] Surgery, Orthopedic 08/07/22 documented as of this encounter
--- OUTSIDE RECORDS SUMMARY | 2024-12-30 14:52 | XMS_ITS | Encounter Summary ---
Author Organization [facility] Address [address] [place] [address] Care Team Providers Care Contingents Supervisor Name Role Phone Jorge Worley DO Unavailable [phone] Erlin Fragoso MD Primary Care Provider [phone] Jose Nicolas MD Unavailable [phone] Encounter Details Date Type Department Care Team (Late st Contact Info) Description 09/18/2023 Scanned Document [facility] [address] [place] [phone] Amari Ayers MD [address] [place] [address] [address] [place] [address] Social History Tobacco Use Types Packs/Day Years [...] on filedocumented in this encounter Care Teams Contingents Supervisor Relationship Specialty Start Date End Date Erlin Fragoso MD [address] [place] [address] PCP - General Internal Medicine 08/07/22 Jorge Worley DO [address] [place] [address] Cardiovascular Disease 08/07/22 Jose Nicolas MD [address] [place] [address] Surgery, Orthopedic 08/07/22 documented as of this encounter
--- OUTSIDE RECORDS SUMMARY | 2024-12-30 14:52 | XMS_ITS | Patient Health Record ---
Author Organization [facility] Address [address] [facility] [address] [place] [address] Care Team Providers Care Steward/Stewardess Banquet Name Role Phone BRAVO STARLA Unavailable [phone] Reason For Referral No Information Plan Of Treatment No Information Insurance Providers Payer Name Payer Address Payer Phone Subscriber Number Group Number Insured Name Patient Relationship to Insured Coverage Start Date Coverage End Date AETNA MEDICARE [address] [place] [address] XU ENGLE Self - patient is the insured Medical (General) History Surgical History Surgery Date(Month/Year) Colonoscopy 12/2019 Parathyroidectomy (right and left inferi or glands) 08/2020
--- OUTSIDE RECORDS SUMMARY | 2024-12-30 14:52 | XMS_ITS | Encounter Summary ---
Author Organization [facility] Address [address] [place] [address] Care Team Providers Care Folder Seamer Name Role Phone Jorge Worley DO Unavailable [phone] Erlin Fragoso MD Primary Care Provider [phone] Jose Nicolas MD Unavailable [phone] Encounter Details Date Type Department Care Team (Late st Contact Info) Description 07/16/2023 Scanned Document [facility] [address] [place] [address] Adonay Rodriguez MD 31 [facility] [address] [place] [address] Social History Tobacco Use Types Packs/Day Years [...] on filedocumented in this encounter Care Teams Folder Seamer Relationship Specialty Start Date End Date Erlin Fragoso MD [address] [place] [address] PCP - General Internal Medicine 08/07/22 Jorge Worley DO [address] [place] [address] Cardiovascular Disease 08/07/22 Jose Nicolas MD [address] [place] [address] Surgery, Orthopedic 08/07/22 documented as of this encounter
--- OUTSIDE RECORDS SUMMARY | 2024-12-30 14:52 | XMS_ITS | Clinical Summary ---
Author Organization [facility] Address [address] [place] [address] Care Team Providers Care Courtesy Clerk Name Role Phone Erlin Fragoso Primary Care Provider [phone] Social History Tobacco Use Types Packs/Day Years [...] complete this topic Insurance AETNA MEDICARE PPO [facility] Care Teams Courtesy Clerk Relationship Specialty Start Date End Date Erlin Fragoso [address] [place] [address] PCP - General Primary Care 01/07/22
--- OUTSIDE RECORDS SUMMARY | 2024-12-30 14:52 | XMS_ITS | Encounter Summary ---
Author Organization [facility] Address [address] [place] [address] Care Team Providers Care Funeral Home Makeup Artist Name Role Phone Jorge Worley DO Unavailable [phone] Erlin Fragoso MD Primary Care Provider [phone] Jose Nicolas MD Unavailable [phone] Encounter Details Date Type Department Care Team (Late st Contact Info) Description 09/23/2023 Scanned Document [facility] [address] [phone] Amari Ayers MD [address] [place] [address] Social History Tobacco Use Types Packs/Day Years [...] on filedocumented in this encounter Care Teams Funeral Home Makeup Artist Relationship Specialty Start Date End Date Erlin Fragoso MD [address] [place] [address] PCP - General Internal Medicine 08/07/22 Jorge Worley DO [address] [place] [address] Cardiovascular Disease 08/07/22 Jose Nicolas MD [address] [place] [address] Surgery, Orthopedic 08/07/22 documented as of this encounter
--- OUTSIDE RECORDS SUMMARY | 2024-12-30 14:52 | XMS_ITS | Encounter Summary ---
Author Organization [facility]ly [facility] Address [address] [place] [address] Care Team Providers Care Eye Specialist Name Role Phone PatricatanmayJorge DO Unavailable [phone] Erlin Fragoso MD Primary Care Provider [phone] Jose Nicolas MD Unavailable [phone] Encounter Details Date Type Department Care Team ([facility] st Contact Info) Description 08/15/2024 Scanned Document [facility] [address] [phone] Adonay Rodriguez MD [address] [place] [address] [phone] Social History Tobacco Use Types Packs/Day Years [...] on filedocumented in this encounter Care Teams Eye Specialist Relationship Specialty Start Date End Date Erlin Fragoso MD [address] [place] [address] PCP - General Internal Medicine 08/07/22 Jorge Worley DO [address] [place] [address] Cardiovascular Disease 08/07/22 Jose Nicolas MD [address] [place] [address] Surgery, Orthopedic 08/07/22 documented as of this encounter
--- OUTSIDE RECORDS SUMMARY | 2024-12-30 14:52 | XMS_ITS ---
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 Subjective: * Chief Complaints: * ???1. 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 * Medical History:? Objective: * Vitals:? Assessment: Plan: * Treatment: * Images: Billing Information: * Visit Code:? * Procedure Codes:? * Electronic signature of STARLA BRAVO MD on 12/30/2024 at 02:52 PM EDT Sign off status: Pending * Provider:?STARLA BRAVO MD Date:?2023 Generated for Aparnai dayday/Lianna/eTransmitting on:?12/30/2024 02:52 PM EDT
--- OUTSIDE RECORDS SUMMARY | 2024-12-30 14:52 | XMS_ITS | Encounter Summary ---
Author Organization [facility] Address [address] [place] [address] Care Team Providers Care Blasting Entryman Name Role Phone Jorge Worley DO Unavailable [phone] Erlin Fragoso MD Primary Care Provider [phone] Jose Nicolas MD Unavailable [phone] Encounter Details Date Type Department Care Team (Late st Contact Info) Description 08/28/2023 Scanned Document [facility] [place] [address] [place] [phone] Amari Ayers MD [address] [place] [address] [address] [place] [address] Social History Tobacco Use Types Packs/Day Years [...] on filedocumented in this encounter Care Teams Blasting Entryman Relationship Specialty Start Date End Date Erlin Fragoos MD [address] [place] [address] PCP - General Internal Medicine 08/07/22 Jorge Worley DO [address] [place] [address] Cardiovascular Disease 08/07/22 Jose Nicolas MD [address] [place] [address] Surgery, Orthopedic 08/07/22 documented as of this encounter
--- OUTSIDE RECORDS SUMMARY | 2024-12-30 14:52 | XMS_ITS | Encounter Summary ---
Author Organization [facility] Address [address] [place] [address] Care Team Providers Care Block Chopper Hand Name Role Phone Jorge Worley DO Unavailable [phone] Erlin Fragoso MD Primary Care Provider [phone] Jose Nicolas MD Unavailable [phone] Encounter Details Date Type Department Care Team (Late st Contact Info) Description 09/23/2023 Scanned Document [facility] [address] [phone] Amari Ayers MD [address] [place] [address] Social History Tobacco Use Types Packs/Day Years [...] on filedocumented in this encounter Care Teams Block Chopper Hand Relationship Specialty Start Date End Date Erlin Fragoso MD [address] [place] [address] PCP - General Internal Medicine 08/07/22 Jorge Worley DO [address] [place] [address] Cardiovascular Disease 08/07/22 Jose Nicolas MD [address] [place] [address] Surgery, Orthopedic 08/07/22 documented as of this encounter
--- OUTSIDE RECORDS SUMMARY | 2024-12-30 14:52 | XMS_ITS | Clinical Summary ---
Author Organization [facility] Address [address] [place] [address] Care Team Providers Care Brisket Puller Name Role Phone Unavailable Primary Care Provider [...] this topic [address] [place] [address]
--- OUTSIDE RECORDS SUMMARY | 2024-12-30 14:52 | XMS_ITS | Encounter Summary ---
Author Organization [facility] Address [address] [place] [address] Care Team Providers Care Infantry Indirect Fire Crewmember Name Role Phone PatricatanmayJorge DO Unavailable [phone] Erlin Fragoso MD Primary Care Provider [phone] Jose Nicolas MD Unavailable [phone] Encounter Details Date Type Department Care Team ([facility] st Contact Info) Description 01/11/2024 Scanned Document [facility] [address] [phone] Adonay Rodriguez MD [address] [place] [phone] Social History Tobacco Use Types Packs/Day Years [...] on filedocumented in this encounter Care Teams Infantry Indirect Fire Crewmember Relationship Specialty Start Date End Date Erlin Fragoso MD [address] [place] [address] PCP - General Internal Medicine 08/07/22 Jorge Worley DO [address] [place] [address] Cardiovascular Disease 08/07/22 Jose Nicolas MD [address] [place] [address] Surgery, Orthopedic 08/07/22 documented as of this encounter
--- OUTSIDE RECORDS SUMMARY | 2024-12-30 14:52 | XMS_ITS ---
Author Organization [facility] Address [address] [facility] [address] [place] [address] Care Team Providers Care Engine Room Helper Name Role Phone STARLA BRAVO Unavailable [phone] REASON FOR VISIT Annual PAIRER Physical Encounters Encounter Location Date Provider Diagnosis [facility] [address] [facility] [address] [place] [address] 02/08/2024 STARLA BRAVO Encounter for gynecological examination [...] Follow Up: 1 Year, Reason: Y early Skin Specialist Exam Progress Notes * ERICA DERASOB: 0 (74 yo F)Acc No.[id number]:02/08/2024 Progress Note Patient:?XU DERAS Provider:?STARLA BRAVO MD :1950???Age:73 Y???Sex:Female D ate:02/08/2024 Address:[address] [place] [address], [facility] Subjective: * Chief Complaints: * ???1. Annual PAIRER Physical. * HPI: ???Constitutional:? 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 * ROS:?Annual Skin Specialist Exam ROS:?Bowel habit changes?denies.?Bladder symptoms?denies.?Vaginal discharge, unusual?denies.?Vaginal itch or odor?denies.?weight or appetite changes?denies.?Chest pains, SOB?denies.?depression?denies.?Breast:?Denies?Breast lump.?Denies?Nipple discharge.?Hematology:?Denies?Swollen glands.?Skin:?Patient denies?changing moles.?Psychiatric:?Denies?Anxiety.? * Medical History:? * Surgical History:?Colonoscop y 12/2019, Parathyroidectomy (right and left inferior glands) 08/2020. Objective: * Vitals:? * Examination: ???General Examination: ?GENERAL APPEARANCE:?in no acute distress, well developed, well nourished, university internship present in room.?HEAD:?normocephalic, atraumatic.?NECK/THYROID:?neck supple, full range [...] * Follow Up:?1 Year (Reason: Y early Skin Specialist Exam) * Images: Billing Information: * Visit Code:? 81404 Preventive Care New Pt. Age 65 and over. * Procedure Codes:? 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
== END 2024-12-30 14:50 | disposition home or self-care (01) ==
LOC: HO.US 14:49
PROVIDERS: PCP Internal Medicine; Visit Provider Nurse Practitioner Family
DX: N20.0 Calculus of kidney (principal); N28.1 Cyst of kidney, acquired
CPT/HCPCS: 76775

== ENCOUNTER → 2024-12-30 14:52 | Outpatient (BNV) | payer MEDICARE, SELFPAY | PROVIDERS: PCP Internal Medicine; Visit Provider Specialist | DX: N20.0 Calculus of kidney (principal) | CPT/HCPCS: 76775 ==

== ENCOUNTER → 2025-01-10 09:51 | Outpatient (REF) | payer MEDICARE, SELFPAY ==
--- NOTE | ~2025-01-10 | NM_ITS ---
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 TECHNIQUE: A total body bone scan was performed following the intravenous administration of 20 mCi technetium 99m-MDP. COMPARISON: Comparison is made with the prior examination dated 08/16/2014. FINDINGS: There are photopenic defects at the right hip and right knee consistent with joint arthroplasties. Linear increased uptake in the midshaft of the right femur is likely secondary to the presence of prostheses at the knee and hip. There is a bandlike focus of increased activity at approximately the L4 vertebral level, which could be secondary to a compression fracture. Mild increased uptake in the thoracolumbar spine is likely degenerative in nature. There is mild increased uptake at the ankles, left knee and bilateral shoulders which is likely degenerative in nature. The remainder of the visualized osseous structures demonstrate a normal distribution of activity. There is normal bilateral renal uptake. NM/NM bone scan whole body IMPRESSION: 1. Bandlike focus of increased uptake at approximately the L4 vertebral level which could be due to a compression fracture. Plain film correlation is suggested. 2. Additional degenerative uptake as described. Electronically signed by: Nima Marcos MD 01/11/2025 07:24 AM EDT
--- OUTSIDE RECORDS SUMMARY | 2025-01-10 10:38 | XMS_ITS | Encounter Summary ---
Author Organization [facility] Address [address] [place] [address] Care Team Providers Care Road Marker Name Role Phone PatricatanmayJorge DO Unavailable [phone] Erlin Fragoso MD Primary Care Provider [phone] Jose Nicolas MD Unavailable [phone] Encounter Details Date Type Department Care Team ([facility] st Contact Info) Description 08/15/2024 Scanned Document [facility] [address] [phone] Adonay Rodriguez MD [address] [place] [address] [phone] Social History Tobacco Use Types Packs/Day Years [...] on filedocumented in this encounter Care Teams Road Marker Relationship Specialty Start Date End Date Erlin Fragoso MD [address] [place] [address] PCP - General Internal Medicine 08/07/22 Jorge Worley DO [address] [place] [address] 11885 Cardiovascular Disease 08/07/22 Jose Nicolas MD [address] [place] [address] Surgery, Orthopedic 08/07/22 documented as of this encounter
--- OUTSIDE RECORDS SUMMARY | 2025-01-10 10:38 | XMS_ITS | Encounter Summary ---
Author Organization [facility] Address [address] [place] [address] Care Team Providers Care Reo Asset Manager Name Role Phone PatricatanmayJorge DO Unavailable [phone] Erlin Fragoso MD Primary Care Provider [phone] Jose Nicolas MD Unavailable [phone] Encounter Details Date Type Department Care Team ([facility] st Contact Info) Description 01/11/2024 Scanned Document [facility] [address] [phone] Adonay Rodriguez MD [address] [place] [address] [phone] Social History Tobacco Use Types Packs/Day Years [...] on filedocumented in this encounter Care Teams Reo Asset Manager Relationship Specialty Start Date End Date Erlin Fragoso MD [address] [place] [address] PCP - General Internal Medicine 08/07/22 Jorge Worley DO [address] [place] [address] Cardiovascular Disease 08/07/22 Jose Nicolas MD [address] [place] [address] Surgery, Orthopedic 08/07/22 documented as of this encounter
--- OUTSIDE RECORDS SUMMARY | 2025-01-10 10:38 | XMS_ITS | Encounter Summary ---
Author Organization [facility] Address [address] [place] [address] Care Team Providers Care Sr. Operations Manager Name Role Phone Jorge Worley DO Unavailable [phone] Erlin Fragoso MD Primary Care Provider [phone] Jose Nicolas MD Unavailable [phone] Encounter Details Date Type Department Care Team (Late st Contact Info) Description 09/23/2023 Scanned Document [facility] [address] [phone] Amari Ayers MD [address] [place] [address] Social History Tobacco Use Types Packs/Day Years [...] on filedocumented in this encounter Care Teams Sr. Operations Manager Relationship Specialty Start Date End Date Erlin Fragoso MD [address] [place] [address] PCP - General Internal Medicine 08/07/22 Jorge Worley DO [address] [place] [address] Cardiovascular Disease 08/07/22 Jose Nicolas MD [address] [place] [address] Surgery, Orthopedic 08/07/22 documented as of this encounter
--- OUTSIDE RECORDS SUMMARY | 2025-01-10 10:38 | XMS_ITS ---
Author Organization [facility] Address [address] [facility] [address] [place] [address] Care Team Providers Care Video Game Engineer Name Role Phone STARLA BRAVO Unavailable [phone] REASON FOR VISIT Annual MED AIDE Physical Encounters Encounter Location Date Provider Diagnosis [facility] [address] [facility] [address] [place] [address] 02/08/2024 STARLA BRAVO Encounter for gynecological examination [...] Follow Up: 1 Year, Reason: Y early Helicopter Dispatcher Exam Progress Notes * ERICA DERASOB: 0 (74 yo F)Acc No.[id number]:02/08/2024 Progress Note Patient:?XU DERAS Provider:?STARLA BRAVO MD :1950???Age:73 Y???Sex:Female D ate:02/08/2024 Address:[address] [place] [address], [facility] Subjective: * Chief Complaints: * ???1. Annual MED AIDE Physical. * HPI: ???Constitutional:? 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 * ROS:?Annual Helicopter Dispatcher Exam ROS:?Bowel habit changes?denies.?Bladder symptoms?denies.?Vaginal discharge, unusual?denies.?Vaginal itch or odor?denies.?weight or appetite changes?denies.?Chest pains, SOB?denies.?depression?denies.?Breast:?Denies?Breast lump.?Denies?Nipple discharge.?Hematology:?Denies?Swollen glands.?Skin:?Patient denies?changing moles.?Psychiatric:?Denies?Anxiety.? * Medical History:? * Surgical History:?Colonoscop y 12/2019, Parathyroidectomy (right and left inferior glands) 08/2020. Objective: * Vitals:? * Examination: ???General Examination: ?GENERAL APPEARANCE:?in no acute distress, well developed, well nourished, upholsterer limousine and hearse present in room.?HEAD:?normocephalic, atraumatic.?NECK/THYROID:?neck supple, full range [...] * Follow Up:?1 Year (Reason: Y early Helicopter Dispatcher Exam) * Images: Billing Information: * Visit Code:? 10978 Preventive Care New Pt. Age 65 and over. * Procedure Codes:? 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
--- OUTSIDE RECORDS SUMMARY | 2025-01-10 10:38 | XMS_ITS | Encounter Summary ---
Author Organization [facility] Address [address] [place] [address] Care Team Providers Care Graphic Engineer Name Role Phone Jorge Worley DO Unavailable [phone] Erlin Fragoso MD Primary Care Provider [phone] Jose Nicolas MD Unavailable [phone] Encounter Details Date Type Department Care Team (Late st Contact Info) Description 09/18/2023 Scanned Document [facility] [address] [place] [phone] Amari Ayers MD [address] [place] [address] [address] [place] [address] Social History Tobacco Use Types Packs/Day Years [...] on filedocumented in this encounter Care Teams Graphic Engineer Relationship Specialty Start Date End Date Erlin Fragoso MD [address] [place] [address] PCP - General Internal Medicine 08/07/22 Jorge Worley DO [address] [place] [address] Cardiovascular Disease 08/07/22 Jose Nicolas MD [address] [place] [address] Surgery, Orthopedic 08/07/22 documented as of this encounter
--- OUTSIDE RECORDS SUMMARY | 2025-01-10 10:38 | XMS_ITS | Clinical Summary ---
Author Organization [facility] Address [address] [place] [address] Care Team Providers Care Vaccine Manager Name Role Phone Jorge Worley DO Unavailable [phone] Erlin Fragoso MD Primary Care Provider [phone] Jose Nicolas MD Unavailable Allergies Active Allergy [...] mouth every morning. 04/21/2022 Active glucose blood (Trumpet SearchTouch Ultra) test strip Inject 1 each under [...] 2:15 PM EDT [facility] [address] [phone] Adonay Rodriguez MD Spondylosis of lumbar region without myelopathy or radiculopathy (Primary Dx) 11/15/2024 11:15 AM EDT Ancillary Procedure Orth[facility] [address] [id number] 11/15/2024 10:45 AM EDT Office Visit Orth[facility] [address] [address] Siva Cheatham MD Pain in left ankle [...] Patients (1 - 1-dose 75+ series) 2025 Influenza Vaccine 03/31/2025 04/28/2024, , 07/06/2022, Additional history exists Microalbumin/Creatinine Ratio Urine 09/01/2025 09/01/2024, 09/11/2023, 10/17/2022 Hepatitis B Vaccines Aged Out No long er eligible based on patient's age to complete this topic Medical Devices Implanted Type Area Abattoir Supervisor Device Identifier Shelf Expiration Date Model / Serial / Lot 6191-1-001 Cement Bone Smpx P Radopq Fd Sterl - [id number] Implanted:Qty : 1 on 09/05/2022 by Jose Nicolas MD at [facility] Cement Right: Knee [employer] - DIV STR [id number] 02/27/2025 6191- / / [id number] Cement Bone Smpx P Radopq Fd Sterl - [id number] Implanted:Qty : 1 on 09/05/2022 by Jose Nicolas MD at [facility] Cement Right: Knee [employer] - DIV STR [id number] 02/27/2025 6191- / / [id number] Cement Bone Smpx P Radopq Fd Sterl - [id number] Implanted:Qty : 1 on 09/05/2022 by Jose Nicolas MD at [facility] Cement Right: Knee [employer] - DIV STR [id number] 02/27/2025 6191- / / [id number] Cement Bone Smpx P Radopq Fd Sterl - [id number] Implanted:Qty : 1 on 09/05/2022 by Jose Nicolas MD at [facility] Cement Right: Knee [employer] - DIV STR [id number] 02/27/2025 6191-001 / / [id number] Component Femoral 5+ Knee Cndrl Cement Cnstrn Persona Cocr - [id number] Implanted:Qty : 1 on 09/05/2022 by Jose Nicolas MD at [facility] Joint Prosthesis Right: Knee [employer] [id number] 07/01/2032 [id number] / / [id number] Component Tibial Persona C Knee Right Npor Revision Fixation - [id number] Implanted:Qty : 1 on 09/05/2022 by Jose Nicolas MD at [facility] Joint Prosthesis Right: Knee [employer] [id number] 07/07/2032 [id number] / / [id number] Surface Articular 12mm Persona 3-5 Cd Knee Right Vivacit-E - [id number] Implanted:Qty : 1 on 09/05/2022 by Jose Nicolas MD at [facility] Joint Prosthesis Right: Knee [employer] [id number] 06/10/2026 [id number] / / [id number] Restrictor Cement 25mm Owens 16-21mm Hip Fem Plug Sterl - [id number] Implanted:Qty : 1 on 09/05/2022 by Jose Nicolas MD at [facility] Joint Prosthesis Right: Knee [facility] [employer] [facility] - D [id number] 01/06/2032 [id number] / / [id number] 5549-A-130 Augment Tibial Trthln C Cone Knee Tritanium Smtr Sterl Lf - [id number] Implanted:Qty : 1 on 09/05/2022 by Jose Nicolas MD at [facility] Joint Prosthesis Right: Knee [employer] - DIV STR [id number] 02/16/2027 5549-A-130 / / [id number] Augment Femoral 5mm Persona 5 5+ Knee Dist Sterl Lf - [id number] Implanted:Qty : 1 on 09/05/2022 by Jose Nicolas MD at [facility] Joint Prosthesis Right: Knee [employer] [id number] 06/03/2032 [id number] / / [id number] Stem Tibial 135+ Mm 18mm Persona Straight Knee Spline - [id number] Implanted:Qty : 1 on 09/05/2022 by Jose Nicolas MD at [facility] Joint Prosthesis Right: Knee [employer] [id number] 07/04/2032 [id number] / / [id number] Stem Extension 30+ Mm 14mm Persona Taper Knee Tibia - [id number] Implanted:Qty : 1 on 09/05/2022 by Jose Nicolas MD at [facility] Joint Prosthesis Right: Knee [employer] [id number] 07/20/2032 [id number] / / [id number] Procedures Procedure Name Priority Date/Time Associated Diagnosis [...] 3+ views-Left (11/15/2024 11:21 AM EDT) Narrative [facility] - 11/15/2024 11:21 AM EDT This exam was performed in office at [facility] and images reviewed by orthopedic provider. ??Any findings are documented within ambulatory encounter note on date of service. us Siva Cheatham MD [facility] ORDERA BLES Final Result Performing Organization Address [facility] de Phone Number OAH * XR Ankle 2 views-Left (11/15/2024 11:21 AM EDT) Narrative [facility] - 11/15/2024 11:21 AM EDT [facility] and images reviewed by orthopedic provider. ??Any findings are documented within ambulatory encounter note on date of service. us Siva Cheatham MD [facility] ORDERA BLES Final Result Performing Organization Address [facility] de Phone Number OA * (ABNORMAL) Basic Metabolic Panel (Early AM) (09/06/2022 6:43 AM EST) Glucose 118(H) 65 - 99 mg/dL 09/06/2022 8:18 AM [facility] Comment:Fasting: <100 mg/dL, Non-Fasting: <200 mg/dL (ADA 2005) Blood Urea Nitrogen (BUN) 20 8 - 21 mg/dL 09/06/2022 8:18 AM [facility] Creatinine 0.7 0.4 - 1.1 mg/dL 09/06/2022 8:18 AM [facility] eGFR >60 >59 09/06/2022 8:18 AM [facility] Comment:MDRD in mL/min/1.73 sq meters. Sodium 142 136 - 145 mmol/L 09/06/2022 8:18 AM [facility] Potassium 3.9 3.4 - 5.3 mmol/L 09/06/2022 8:18 AM [facility] Chloride 104 98 - 107 mmol/L 09/06/2022 8:18 AM [facility] CO2 28 22 - 33 mmol/L 09/06/2022 8:18 AM [facility] Anion Gap 10 7 - 17 09/06/2022 8:18 AM [facility] Calcium 8.9 8.7 - 10.5 mg/dL 09/06/2022 8:18 AM [facility] BUN/Creatinine Ratio 29(H) 10.0 - 25.0 Ratio 09/06/2022 8:18 AM [facility] Blood specimen (specimen) (Plasma/Serum) 09/06/2022 6:43 AM EST 09/06/2022 7:43 AM EST us [facility] LAB BLOOD ORDERABLES Final Result HOSPITAL LAB See Below [facility] [address] [place] [address] * (ABNORMAL) Hemoglobin A1c with Estimated Average Glucose (08/18/2022 11:15 AM EST) Hemoglobin A1C 7.2(H) <5.7 % 08/18/2022 8:55 PM [facility] Comment: A1c% ? Interpretation 5.7 - 6.0 ?Increase risk of diabetes 6.1 - 6.4 ?Higher risk of diabetes > or = 6.5 ?? Consistent with diabetes Diabetes Care, 33(Supp 1):S1-S61, 2009 Estimated Average Glucose 160 mg/dL 08/18/2022 8:55 PM EST [facility] Blood specimen (specimen) Blood specimen / Unknown 08/18/2022 11:15 AM EST 08/18/2022 8:17 PM EST us Zayda Mirza SUPERSONIC ENGINEER LAB BLOOD ORDERABLES Final R esult HOSPITAL LAB See Below [address] [address] from Last 3 Months or Most Recently Relevant to Health Maintenance Insurance RD [address] [place] [address] [facility] MEDICARE [address] [place] [address] [facility] MEDICARE [address] [place] [address] A[employer] MGD MEDICARE Advance Directives Documents on File Type Date Recorded Patient Stitch Wheeler Expl anation Advance Directive-Scan 07/14/2023 CHECK OUT * Full Code (Latest Code Status on File) Date Activated Date Inactivated Comments 09/05/2022 5:30 PM * Full Code Date Activated Date Inactivated Comments 09/05/2022 8:01 AM 09/05/2022 5:30 PM Care Teams Vaccine Manager Relationship Specialty Start Date End Date Erlin Fragoso MD [address] [place] [address] PCP - General Internal Medicine 08/07/22 Jorge Worley DO [address] [place] [address] Cardiovascular Disease 08/07/22 Jose Nicolas MD [address] [address] Surgery, Orthopedic 08/07/22
--- OUTSIDE RECORDS SUMMARY | 2025-01-10 10:38 | XMS_ITS | Clinical Summary ---
Author Organization [facility] Address [address] [place] [address] Care Team Providers Care Area Development Manager Name Role Phone Erlin Fragoso Primary Care Provider [phone] Social History Tobacco Use Types Packs/Day Years [...] complete this topic Insurance AETNA MEDICARE PPO [facility] Care Teams Area Development Manager Relationship Specialty Start Date End Date Erlin Fragoso [address] [place] [address] PCP - General Primary Care 01/07/22
--- OUTSIDE RECORDS SUMMARY | 2025-01-10 10:38 | XMS_ITS | Encounter Summary ---
Author Organization [facility] Address [address] [place] [address] Care Team Providers Care Assembly And Packing Supervisor Name Role Phone Jorge Worley DO Unavailable [phone] Erlin Fragoso MD Primary Care Provider [phone] Jose Nicolas MD Unavailable [phone] Encounter Details Date Type Department Care Team (Late st Contact Info) Description 07/16/2023 Scanned Document [facility] [address] [place] [address] Adonay Rodriguez MD [address] [facility] [address] [place] [address] Social History Tobacco Use Types Packs/Day Years [...] on filedocumented in this encounter Care Teams Assembly And Packing Supervisor Relationship Specialty Start Date End Date Erlin Fragoso MD [address] [place] [address] PCP - General Internal Medicine 08/07/22 Jorge Worley DO [address] [place] [address] Cardiovascular Disease 08/07/22 Jose Nicolas MD [address] [place] [address] Surgery, Orthopedic 08/07/22 documented as of this encounter
--- OUTSIDE RECORDS SUMMARY | 2025-01-10 10:38 | XMS_ITS | Encounter Summary ---
Author Organization [facility] Address [address] [place] [address] Care Team Providers Care Special Education Resource Teacher Name Role Phone Jorge Worley DO Unavailable [phone] Erlin Fragoso MD Primary Care Provider [phone] Jose Nicolas MD Unavailable [phone] Encounter Details Date Type Department Care Team (Late st Contact Info) Description 08/15/2022 Telephone [facility] [address] [facility] 2nd Floor [address] [place] [phone] Gina Dorsey MA [address] [place], [place] [phone] Social History Tobacco Use Types Packs/Day Years [...] Have you recently had an admission to SNF/Rehab/Usp? No Have you traveled internationally or domestically in the last month? No documented in this encounter Plan of Treatment Not on file documented as of this encounter Visit Diagnoses Not on filedocumented in this encounter Care Teams Special Education Resource Teacher Relationship Specialty Start Date End Date Erlin Fragoso MD [address] [place] [address] PCP - General Internal Medicine 08/07/22 Jorge Worley DO [address] [place] [address] Cardiovascular Disease 08/07/22 Jose Nicolas MD 31 [facility] [address] [place] [address] Surgery, Orthopedic 08/07/22 documented as of this encounter
--- OUTSIDE RECORDS SUMMARY | 2025-01-10 10:39 | XMS_ITS | Clinical Summary ---
Author Organization [facility] Address [address] [place] [address] Care Team Providers Care Cream Beater Name Role Phone Unavailable Primary Care Provider [...] this topic [address] [place] [address]
--- OUTSIDE RECORDS SUMMARY | 2025-01-10 10:39 | XMS_ITS ---
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 * Medical History:? Objective: * Vitals:? Assessment: Plan: * Treatment: * Images: Billing Information: * Visit Code:? * Procedure Codes:? * Electronic signature of STARLA BRAVO MD on 01/10/2025 at 10:38 AM EDT Sign off status: Pending * Provider:?STARLA BRAVO MD Date:?2023 Generated for Aparnai dayday/Lianna/eTransmitting on:?01/10/2025 10:38 AM EDT
--- OUTSIDE RECORDS SUMMARY | 2025-01-10 10:39 | XMS_ITS | Clinical Summary ---
Author Organization [facility] [address] [facility] Address [address] [place] [address] Phone Care Team Providers Care Fountain Pen Nibs Inspector Name Role Phone Erlin Fragoso MD Primary Care Provider [phone] Allergies Active Allergy Reactions Criticality Noted Date [...] Team Description 12/01/2024 Telephone Gastroenterology - [address] [phone] [place]af[place] Results 11/24/2024 10:30 AM EDT Office Visit Gastroenterology - [address] [phone] Nick Espana MD Abnormal LFTs (Primary Dx); Liver disease, unspecified; History of colon polyps; History of gastric bypass; Abdominal wall hernia 11/22/2024 4:54 PM EDT - 11/22/2024 11:59 PM EDT Hospital Encounter [facility] CT Scan [address] [place] [phone] History of gastric bypass; Abdominal pain, LUQ [...] UBALDO Negative Negative 11/25/2024 2:13 PM EDT [facility] Blood Venous blood specimen / Unknown Venipuncture / Unknown 11/24/2024 11:44 AM EDT 11/24/2024 12:09 PM EDT us Nick Espana MD LAB BLOOD ORDERABLES Final Resu lt [facility] [address] [place] [address], [place] [phone] * Smooth muscle antibody IgG (11/24/2024 11:44 AM EDT) Smooth Muscle (F-Actin) IgG Ab 4 <20 UNITS 11/28/2024 1:56 PM EDT [facility] Comment: Interpretation: Negative Test performed at [facility], [address] , [place], [place] ??[address] ? [phone] Beba Marinelli MD, PhD - Explosives Detonator Blood Venous blood specimen / Unknown Venipuncture / Unknown 11/24/2024 11:44 AM EDT 11/24/2024 12:09 PM EDT us Nick Espana MD LAB BLOOD ORDERABLES Final Resu lt [facility] [address] [place] [address] * Antimitochondrial antibody (11/24/2024 11:44 AM EDT) Pathologist [facility] Mitochondrial Antibody Quantitative 3.5 <=20.0 units LAB CHEMISTRY METHOD 11/30/2024 11:42 AM EDT [facility] Mitochondrial Antibody Qualitative Negative Negative LAB CHEMISTRY METHOD 11/30/2024 11:42 AM EDT [facility] Blood Venous blood specimen / Unknown Venipuncture / Unknown 11/24/2024 11:44 AM EDT 11/24/2024 12:09 PM EDT Nick Espana MD LAB BLOOD ORDERABLES Final Resu lt Performing Organization Address City/[facility]/ZIP Co de Phone Number [facility] [address] [place] [address], * (ABNORMAL) Bilirubin, total and direct (11/24/2024 11:44 AM EDT) [facility] Total Bilirubin 2.5(H) 0.0 - 1.4 mg/dL LAB CHEMISTRY METHOD 11/24/2024 2:28 PM EDT [facility] Bilirubin, Direct 0.4(H) 0.0 - 0.3 mg/dL LAB CHEMISTRY METHOD 11/24/2024 2:28 PM EDT [facility] Bilirubin, Indirect 2.1(H) 0.0 - 1.1 mg/dL LAB CHEMISTRY METHOD 11/24/2024 2:28 PM EDT [facility] Blood Venous blood specimen / Unknown Venipuncture / Unknown 11/24/2024 11:44 AM EDT 11/24/2024 12:08 PM EDT us Nick Espana MD LAB BLOOD ORDERABLES Final Resu lt Performing Organization Address [facility]/ZIP Co de Phone Number [facility] [address] [place] [address], [place] [phone] * GGT (11/24/2024 11:44 AM EDT) GGT 24 7 - 64 unit/L LAB CHEMISTRY METHOD 11/24/2024 2:25 PM EDT [facility] Blood Venous blood specimen / Unknown Venipuncture / Unknown 11/24/2024 11:44 AM EDT 11/24/2024 12:08 PM EDT us Nick Espana MD LAB BLOOD ORDERABLES Final Resu lt Performing Organization Address [facility] Co de Phone Number [facility] [address] [place] [address], [place] [phone] * CT Abdomen Pelvis w Contrast (11/22/2024 [...] Signed Date: 11/25/2024 16:20 ET Workstation ID: [id number] Transcribed By: Self Edit Transcribed Date: 11/25/2024 [...] administered intravenously without incident. Oralcontrast administered. Scanner: Talknote revolution frontier 128 slice VCT Dose reduction [...] Signed Date: 11/25/2024 16:20 ET Workstation ID: [id number] Transcribed By: Self Edit Transcribed Date: 11/25/2024 16:14 ET Nick Espana MD IMG CT PROCEDURES Final Result * Methylmalonic acid, serum (11/21/2024 1:42 PM EDT) Methylmalonic Acid 0.23 <0.40 umol/L 11/25/2024 5:12 AM EDT [facility] Comment: If applicable, any drug confirmation testing reported here was developed and the performance characteristics determined by [facility]. This confirmation testing has not been cleared or approved by the FDA. The laboratory is regulated under CLIA as qualified to perform high-complexity testing. This test is used for patient testing purposes. It should not be regarded as investigational or for research. Test performed at [facility], [address] , [place], [place] ??[address] ? [phone] Beba Marinelli MD, PhD - Explosives Detonator Blood Venous blood specimen / Unknown Venipuncture / Unknown 11/21/2024 1:42 PM EDT 11/21/2024 1:51 PM EDT Nick Espana MD LAB BLOOD ORDERABLES Final Resu lt [facility] [address] [place] [address] * Iron and TIBC (11/21/2024 1:42 PM EDT) Iron 61 40 - 150 mcg/dL LAB CHEMISTRY METHOD 11/21/2024 3:03 PM EDT [facility] TIBC 391 250 - 450 mcg/dL LAB CHEMISTRY METHOD 11/21/2024 3:03 PM EDT [facility] Iron Saturation 16 15 - 50 % LAB CHEMISTRY METHOD 11/21/2024 3:03 PM EDT [facility] Blood Venous blood specimen / Unknown Venipuncture / Unknown 11/21/2024 1:42 PM EDT 11/21/2024 1:51 PM EDT Nick Espana MD LAB BLOOD ORDERABLES Final Resu lt Performing Organization Address City/[facility]/ZIP Co de Phone Number [facility] [address] [place] [address], [place] [phone] * Copper, serum (11/21/2024 1:42 PM EDT) Copper 1100 810 - 1990 ug/L 11/25/2024 6:08 AM EDT [facility] Comment: Copper values may be elevated to twice the normal levels in . Elevated results may be due to sample collected in a non-certified trace element-free tube. This test was developed and the performance characteristics determined by [facility]. It has not been cleared or approved by the FDA. The laboratory is regulated under CLIA as qualified to perform high-complexity testing. This test is used for patient testing purposes. It should not be regarded as investigational or for research. Test performed at [facility], [address] , [place], [place] ??[address] ? [phone] Beba Marinelli MD, PhD - Explosives Detonator Blood Venous blood specimen / Unknown Venipuncture / Unknown 11/21/2024 1:42 PM EDT 11/21/2024 1:51 PM EDT us Nick Espana MD LAB BLOOD ORDERABLES Final Resu lt [facility] [address] [place] [address] * Ferritin (11/21/2024 1:42 PM EDT) Ferritin 26 8 - 252 ng/mL LAB CHEMISTRY METHOD 11/21/2024 3:03 PM T [facility] Blood Venous blood specimen / Unknown Venipuncture / Unknown 11/21/2024 1:42 PM EDT 11/21/2024 1:51 PM EDT us Nikc Espana MD LAB BLOOD ORDERABLES Final Resu lt [facility] [address] [place] [address], [place] [phone] * (ABNORMAL) Comprehensive metabolic panel (11/21/2024 1:42 PM EDT) Sodium 138 133 - 145 mmol/L LAB CHEMISTRY METHOD 11/21/2024 3:03 PM [facility] Potassium 3.6 3.5 - 5.5 mmol/L LAB CHEMISTRY METHOD 11/21/2024 3:03 PM [facility] Chloride 104 96 - 110 mmol/L LAB CHEMISTRY METHOD 11/21/2024 3:03 PM [facility] CO2 28 21 - 32 mmol/L LAB CHEMISTRY METHOD 11/21/2024 3:03 PM [facility] Anion Gap 6 3 - 11 LAB CHEMISTRY METHOD 11/21/2024 3:03 PM [facility] Glucose 94 70 - 100 mg/dL LAB CHEMISTRY METHOD 11/21/2024 3:03 PM [facility] BUN 23 5 - 25 mg/dL LAB CHEMISTRY METHOD 11/21/2024 3:03 PM [facility] Creatinine 0.69 0.50 - 1.10 mg/dL LAB CHEMISTRY METHOD 11/21/2024 3:03 PM [facility] eGFR 91 >=60 mL/min/1. 73m2 LAB CHEMISTRY METHOD 11/21/2024 3:03 PM [facility] Comment:Calculation based on the??Chronic Kidney Disease Epidemiology Collaboration (CKD-EPI) equation refit??without adjustment for race. BUN/Creatinine Ratio 33.3 LAB CHEMISTRY METHOD 11/21/2024 3:03 PM [facility] Calcium 9.3 8.5 - 10.5 mg/dL LAB CHEMISTRY METHOD 11/21/2024 3:03 PM [facility] AST (SGOT) 25 10 - 42 unit/L LAB CHEMISTRY METHOD 11/21/2024 3:03 PM [facility] ALT (SGPT) 31 10 - 60 unit/L LAB CHEMISTRY METHOD 11/21/2024 3:03 PM [facility] Alkaline Phosphatase 136(H) 42 - 121 unit/L LAB CHEMISTRY METHOD 11/21/2024 3:03 PM [facility] Total Protein 6.5 6.0 - 8.0 g/dL LAB CHEMISTRY METHOD 11/21/2024 3:03 PM [facility] Albumin 3.8 3.2 - 5.0 g/dL LAB CHEMISTRY METHOD 11/21/2024 3:03 PM [facility] Total Bilirubin 2.0(H) 0.0 - 1.4 mg/dL LAB CHEMISTRY METHOD 11/21/2024 3:03 PM T [facility] Blood Venous blood specimen / Unknown Venipuncture / Unknown 11/21/2024 1:42 PM EDT 11/21/2024 1:51 PM EDT us Nick Espana MD LAB BLOOD ORDERABLES Final Resu lt [facility] [address] [place] [address], from Last [address] [place] [address] A[employer]NA MEDICARE ADVANTAGE Care Teams Fountain Pen Nibs Inspector Relationship Specialty Start Date End Date Erlin Fragoso MD [address] [place] [address] PCP - General Internal Medicine 07/15/24
--- OUTSIDE RECORDS SUMMARY | 2025-01-10 10:39 | XMS_ITS | Patient Health Record ---
Author Organization [facility] Address [address] [facility] [address] [place] [address] Care Team Providers Care Ball Shagger Name Role Phone BRAVO STARLA Unavailable [phone] Reason For Referral No Information Plan Of Treatment No Information Insurance Providers Payer Name Payer Address Payer Phone Subscriber Number Group Number Insured Name Patient Relationship to Insured Coverage Start Date Coverage End Date A[employer] MEDICARE [address] [place] [address] XU [id number] Self - patient is the insured Medical (General) History Surgical History Surgery Date(Month/Year) Colonoscopy 12/2019 Parathyroidectomy (right and left inferi or glands) 08/2020
--- OUTSIDE RECORDS SUMMARY | 2025-01-10 10:39 | XMS_ITS | Encounter Summary ---
Author Organization [facility] Address [address] [place] [address] Care Team Providers Care Intellectual Property Paralegal Name Role Phone Jorge Worley DO Unavailable [phone] Erlin Fragoso MD Primary Care Provider [phone] Jose Nicolas MD Unavailable [phone] Encounter Details Date Type Department Care Team (Late st Contact Info) Description 08/28/2023 Scanned Document [facility] [address] [place] [phone] Amari Ayers MD [address] [place] [address] [address] [place] [address] Social History Tobacco Use Types Packs/Day Years [...] on filedocumented in this encounter Care Teams Intellectual Property Paralegal Relationship Specialty Start Date End Date Erlin Frgaoso MD [address] [place] [address] PCP - General Internal Medicine 08/07/22 Jorge Worley DO [address] [place] [address] Cardiovascular Disease 08/07/22 Jose Nicolas MD [address] [place] [address] Surgery, Orthopedic 08/07/22 documented as of this encounter
--- OUTSIDE RECORDS SUMMARY | 2025-01-10 10:39 | XMS_ITS | Encounter Summary ---
Author Organization [facility] Address [address] [place] [address] Care Team Providers Care Precision Instrument And Tool Maker Name Role Phone Jorge Worley DO Unavailable [phone] Erlin Fragoso MD Primary Care Provider [phone] Jose Nicolas MD Unavailable [phone] Encounter Details Date Type Department Care Team (Late st Contact Info) Description 09/23/2023 Scanned Document [facility] [address] [phone] Amari Ayers MD [address] [place] [address] Social History Tobacco Use Types Packs/Day Years [...] on filedocumented in this encounter Care Teams Precision Instrument And Tool Maker Relationship Specialty Start Date End Date Erlin Fragoso MD [address] [place] [address] PCP - General Internal Medicine 08/07/22 Jorge Worley DO [address] [place] [address] Cardiovascular Disease 08/07/22 Jose Nicolas MD [address] [place] [address] Surgery, Orthopedic 08/07/22 documented as of this encounter
== END ==
LOC: HO.NUCMED 09:51
PROVIDERS: PCP Internal Medicine; Visit Provider Student in an Organized Health Care Education/Training Program
DX: M88.9 Osteitis deformans of unspecified bone (principal)
CPT/HCPCS: 78306; A9503

== ENCOUNTER → 2025-01-10 09:53 | Outpatient (BNV) | payer MEDICARE, SELFPAY | PROVIDERS: PCP Internal Medicine; Visit Provider Radiology Diagnostic Radiology | DX: M88.9 Osteitis deformans of unspecified bone (principal) | CPT/HCPCS: 78306 ==

== ENCOUNTER 2025-01-16 15:25 | Outpatient (REF) | payer MEDICARE, SELFPAY ==
--- NOTE | ~2025-01-16 | XR_ITS ---
EXAMINATION: XR LUMBAR SPINE 2-3 VIEWS HISTORY: ABNORMAL BONE SCAN COMPARISON: Correlation is made with a bone scan dated 01/10/2025. FINDINGS: AP, lateral, and coned down views of the lumbar spine are submitted. Osseous mineralization is normal. Five nonrib-bearing lumbar vertebral bodies are identified, maintaining normal height without evidence of fracture or spondylolisthesis. There is mild scoliosis. There is severe degenerative disc disease with disc space narrowing and osteophyte formation. This is most prominent at the L3-4 level which likely accounts for the increased uptake on bone scan. 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 There is calcification of the abdominal aorta. A portion of the right hip prosthesis is noted. XR/XR lumbar spine 2-3V IMPRESSION: Mild scoliosis. Severe degenerative disc disease, likely accounting for the increased uptake in the lumbar spine seen on bone scan. Electronically signed by: Nima Marcos MD 01/16/2025 03:58 PM EDT
--- OUTSIDE RECORDS SUMMARY | 2025-01-16 15:29 | XMS_ITS | Encounter Summary ---
Author Organization [facility] Address [address] [place] [address] Care Team Providers Care Switch Operators Supervisor Name Role Phone PatricatanmayJorge DO Unavailable [phone] Erlin Fragoso MD Primary Care Provider [phone] Jose Nicolas MD Unavailable [phone] Encounter Details Date Type Department Care Team ([facility] st Contact Info) Description 01/11/2024 Scanned Document [facility] [address] [phone] Adonay Rodriguez MD [address] [place] [phone] Social History Tobacco Use Types Packs/Day Years [...] on filedocumented in this encounter Care Teams Switch Operators Supervisor Relationship Specialty Start Date End Date Erlin Fragoso MD [address] [place] [address] PCP - General Internal Medicine 08/07/22 Jorge Worley DO [address] [place] [address] Cardiovascular Disease 08/07/22 Jose Nicolas MD [address] [place] [address] Surgery, Orthopedic 08/07/22 documented as of this encounter
--- OUTSIDE RECORDS SUMMARY | 2025-01-16 15:29 | XMS_ITS | Encounter Summary ---
Author Organization [facility] Address [address] [place] [address] Care Team Providers Care Clinical Lab Specialist Name Role Phone Jorge Worley DO Unavailable [phone] Erlin Fragoso MD Primary Care Provider [phone] Jose Nicolas MD Unavailable [phone] Encounter Details Date Type Department Care Team (Late st Contact Info) Description 08/15/2022 Telephone [facility] [address] [facility] 2[address] [place] [phone] Gina Dorsey MA [address] [place], [place] [phone] Social History Tobacco Use Types Packs/Day Years [...] Have you recently had an admission to SNF/Rehab/Snf? No Have you traveled internationally or domestically in the last month? No documented in this encounter Plan of Treatment Not on file documented as of this encounter Visit Diagnoses Not on filedocumented in this encounter Care Teams Clinical Lab Specialist Relationship Specialty Start Date End Date Erlin Fragoso MD [address] [place] [address] PCP - General Internal Medicine 08/07/22 Jorge Worley DO [address] [place] [address] Cardiovascular Disease 08/07/22 Jose Nicolas MD 31 [facility] [address] [place] [address] Surgery, Orthopedic 08/07/22 documented as of this encounter
--- OUTSIDE RECORDS SUMMARY | 2025-01-16 15:29 | XMS_ITS ---
Author Organization [facility] [employer] 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 * HPI: ???Constitutional:? 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 * ROS:?Annual Bundle Tier Exam ROS:?Bowel habit changes?denies.?Bladder symptoms?denies.?Vaginal discharge, unusual?denies.?Vaginal itch or odor?denies.?weight or appetite changes?denies.?Chest pains, SOB?denies.?depression?denies.?Breast:?Denies?Breast lump.?Denies?Nipple discharge.?Hematology:?Denies?Swollen glands.?Skin:?Patient denies?changing moles.?Psychiatric:?Denies?Anxiety.? * Medical History:? * Surgical History:?Colonoscop y 12/2019, Parathyroidectomy (right and left inferior glands) 08/2020. Objective: * Vitals:? * Examination: ???General Examination: ?GENERAL APPEARANCE:?in no acute distress, well developed, well nourished, finish machine tender present in room.?HEAD:?normocephalic, atraumatic.?NECK/THYROID:?neck supple, full range [...] * Follow Up:?1 Year (Reason: Y early Bundle Tier Exam) * Images: Billing Information: * Visit Code:? 89082 Preventive Care New Pt. Age 65 and over. * Procedure Codes:? 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 She is new to the practice, [...] ac farrukh distress, well developed, well nourished, finish machine tender present in room HEAD: normocephalic, atrau matic [...]
--- OUTSIDE RECORDS SUMMARY | 2025-01-16 15:29 | XMS_ITS | Encounter Summary ---
Author Organization [facility] Address [address] [place] [address] Care Team Providers Care Well Digger Name Role Phone PatricatanmayJorge DO Unavailable [phone] Erlin Fragoso MD Primary Care Provider [phone] Jose Nicolas MD Unavailable [phone] Encounter Details Date Type Department Care Team ([facility] st Contact Info) Description 08/15/2024 Scanned Document [facility] [address] [phone] Adonay Rodriguez MD [address] [place] [phone] Social History Tobacco Use Types Packs/Day Years [...] on filedocumented in this encounter Care Teams Well Digger Relationship Specialty Start Date End Date Erlin Fragoso MD [address] [place] [address] PCP - General Internal Medicine 08/07/22 Jorge Worley DO [address] [place] [address] Cardiovascular Disease 08/07/22 Jose Nicolas MD [address] [place] [address] Surgery, Orthopedic 08/07/22 documented as of this encounter
--- OUTSIDE RECORDS SUMMARY | 2025-01-16 15:30 | XMS_ITS | Clinical Summary ---
Author Organization [facility] Address [address] [place] [address] Care Team Providers Care Jukebox Coin Collector Name Role Phone Erlin Fragoso Primary Care Provider [phone] Social History Tobacco Use Types Packs/Day Years [...] complete this topic Insurance AETNA MEDICARE PPO [facility] Care Teams Jukebox Coin Collector Relationship Specialty Start Date End Date Erlin Fragoso [address] [place] [address] PCP - General Primary Care 01/07/22
--- OUTSIDE RECORDS SUMMARY | 2025-01-16 15:30 | XMS_ITS | Clinical Summary ---
Author Organization [facility] [address] [facility] Address [address] [place] [address] Phone Care Team Providers Care Autocad Name Role Phone Erlin Fragoso MD Primary Care Provider [phone] Allergies Active Allergy Reactions Criticality Noted Date [...] Team Description 12/01/2024 Telephone Gastroenterology - [address] [phone] Serafin Denise [place] Results 11/24/2024 10:30 AM EDT Office Visit Gastroenterology - [address] [phone] Nick Espana MD Abnormal LFTs (Primary Dx); Liver disease, unspecified; History of colon polyps; History of gastric bypass; Abdominal wall hernia 11/22/2024 4:54 PM EDT - 11/22/2024 11:59 PM EDT Hospital Encounter [facility] CT Scan [address] [place] [phone] History of gastric bypass; Abdominal pain, LUQ [...] Resu lt [facility] [address] [place] [address], [place] [phone] * Smooth muscle antibody IgG (11/24/2024 11:44 AM EDT) Smooth Muscle (F-Actin) IgG Ab 4 <20 UNITS 11/28/2024 1:56 PM EDT [facility] Comment: Interpretation: Negative Test performed at [facility], [address] , [place], [place] ??[address] ? [phone] Beba Marinelli MD, PhD - Tractor Mechanic Apprentice Blood Venous blood specimen / Unknown Venipuncture / Unknown 11/24/2024 11:44 AM EDT 11/24/2024 12:09 PM EDT us Nick Espana MD LAB BLOOD ORDERABLES Final Resu lt [facility] [address] [place] [address] * Antimitochondrial antibody (11/24/2024 11:44 AM EDT) Pathologist [facility] Mitochondrial Antibody Quantitative 3.5 <=20.0 units LAB CHEMISTRY METHOD 11/30/2024 11:42 AM EDT [facility] Mitochondrial Antibody Qualitative Negative Negative LAB CHEMISTRY METHOD 11/30/2024 11:42 AM EDT [facility] Blood Venous blood specimen / Unknown Venipuncture / Unknown 11/24/2024 11:44 AM EDT 11/24/2024 12:09 PM EDT Nick Espana MD LAB BLOOD ORDERABLES Final Resu lt Performing Organization Address City/[facility]/ZIP Co de Phone Number [facility] [address] [place] [address], * (ABNORMAL) Bilirubin, total and direct (11/24/2024 11:44 AM EDT) [facility] Total Bilirubin 2.5(H) 0.0 - 1.4 mg/dL [...] ORDERABLES Final Resu lt Performing Organization Address [facility]/ZIP Co de Phone Number [facility] [address] [place] [address], [place] [phone] * GGT (11/24/2024 11:44 AM EDT) GGT 24 7 - 64 unit/L LAB CHEMISTRY METHOD 11/24/2024 2:25 PM EDT [facility] Blood Venous blood specimen / Unknown Venipuncture / Unknown 11/24/2024 11:44 AM EDT 11/24/2024 12:08 PM EDT us Nick Espana MD LAB BLOOD ORDERABLES Final Resu lt Performing Organization Address [facility] Co de Phone Number [facility] [address] [place] [address], [place] [phone] * CT Abdomen Pelvis w Contrast (11/22/2024 [...] Signed Date: 11/25/2024 16:20 ET Workstation ID: [id number] Transcribed By: Self Edit Transcribed Date: 11/25/2024 [...] administered intravenously without incident. Oralcontrast administered. Scanner: Populr revolution frontier 128 slice VCT Dose reduction [...] Signed Date: 11/25/2024 16:20 ET Workstation ID: [id number] Transcribed By: Self Edit Transcribed Date: 11/25/2024 16:14 ET Nick Espana MD IMG CT PROCEDURES Final Result * Methylmalonic acid, serum (11/21/2024 1:42 PM EDT) Methylmalonic Acid 0.23 <0.40 umol/L 11/25/2024 5:12 AM EDT [facility] Comment: If applicable, any drug confirmation testing reported here was developed and the performance characteristics determined by [facility]. This confirmation testing has not been cleared or approved by the FDA. The laboratory is regulated under CLIA as qualified to perform high-complexity testing. This test is used for patient testing purposes. It should not be regarded as investigational or for research. Test performed at [facility], [address] , [place], [place] ??[address] ? [phone] Beba Marinelli MD, PhD - Tractor Mechanic Apprentice Blood Venous blood specimen / Unknown Venipuncture / Unknown 11/21/2024 1:42 PM EDT 11/21/2024 1:51 PM EDT Nick Espana MD LAB BLOOD ORDERABLES Final Resu lt [facility] [address] [place] [address] * Iron and TIBC (11/21/2024 1:42 PM [...] ORDERABLES Final Resu lt Performing Organization Address City/[facility]/ZIP Co de Phone Number [facility] [address] [place] [address], [place] [phone] * Copper, serum (11/21/2024 1:42 PM EDT) Copper 1100 810 - 1990 ug/L 11/25/2024 6:08 AM EDT [facility] Comment: Copper values may be elevated to twice the normal levels in . Elevated results may be due to sample collected in a non-certified trace element-free tube. This test was developed and the performance characteristics determined by [facility]. It has not been cleared or approved by the FDA. The laboratory is regulated under CLIA as qualified to perform high-complexity testing. This test is used for patient testing purposes. It should not be regarded as investigational or for research. Test performed at [facility], [address] , [place], [place] ??[address] ? [phone] Beba Marinelli MD, PhD - Tractor Mechanic Apprentice Blood Venous blood specimen / Unknown Venipuncture / Unknown 11/21/2024 1:42 PM EDT 11/21/2024 1:51 PM EDT us Nick Espana MD LAB BLOOD ORDERABLES Final Resu lt [facility] [address] [place] [address] * Ferritin (11/21/2024 1:42 PM EDT) Ferritin 26 8 - 252 ng/mL LAB CHEMISTRY METHOD 11/21/2024 3:03 PM T [facility] Blood Venous blood specimen / Unknown Venipuncture / Unknown 11/21/2024 1:42 PM EDT 11/21/2024 1:51 PM EDT us Nick Espana MD LAB BLOOD ORDERABLES Final Resu lt [facility] [address] [place] [address], [place] [phone] * (ABNORMAL) Comprehensive metabolic panel (11/21/2024 1:42 PM EDT) Sodium 138 133 - 145 mmol/L LAB CHEMISTRY METHOD 11/21/2024 3:03 PM [facility] Potassium 3.6 3.5 - 5.5 mmol/L LAB CHEMISTRY METHOD 11/21/2024 3:03 PM [facility] Chloride 104 96 - 110 mmol/L LAB CHEMISTRY METHOD 11/21/2024 3:03 PM [facility] CO2 28 21 - 32 mmol/L LAB CHEMISTRY METHOD 11/21/2024 3:03 PM [facility] Anion Gap 6 3 - 11 LAB CHEMISTRY METHOD 11/21/2024 3:03 PM [facility] Glucose 94 70 - 100 mg/dL LAB CHEMISTRY METHOD 11/21/2024 3:03 PM [facility] BUN 23 5 - 25 mg/dL LAB CHEMISTRY METHOD 11/21/2024 3:03 PM [facility] Creatinine 0.69 0.50 - 1.10 mg/dL LAB CHEMISTRY METHOD 11/21/2024 3:03 PM [facility] eGFR 91 >=60 mL/min/1. 73m2 LAB CHEMISTRY METHOD 11/21/2024 3:03 PM [facility] Comment:Calculation based on the??Chronic Kidney Disease Epidemiology Collaboration (CKD-EPI) equation refit??without adjustment for race. BUN/Creatinine Ratio 33.3 LAB CHEMISTRY METHOD 11/21/2024 3:03 PM [facility] Calcium 9.3 8.5 - 10.5 mg/dL LAB CHEMISTRY METHOD 11/21/2024 3:03 PM [facility] AST (SGOT) 25 10 - 42 unit/L LAB CHEMISTRY METHOD 11/21/2024 3:03 PM [facility] ALT (SGPT) 31 10 - 60 unit/L LAB CHEMISTRY METHOD 11/21/2024 3:03 PM [facility] Alkaline Phosphatase 136(H) 42 - 121 unit/L LAB CHEMISTRY METHOD 11/21/2024 3:03 PM [facility] Total Protein 6.5 6.0 - 8.0 g/dL LAB CHEMISTRY METHOD 11/21/2024 3:03 PM [facility] Albumin 3.8 3.2 - 5.0 g/dL LAB CHEMISTRY METHOD 11/21/2024 3:03 PM [facility] Total Bilirubin 2.0(H) 0.0 - 1.4 mg/dL LAB CHEMISTRY METHOD 11/21/2024 3:03 PM T [facility] Blood Venous blood specimen / Unknown Venipuncture / Unknown 11/21/2024 1:42 PM EDT 11/21/2024 1:51 PM EDT us Nick Espana MD LAB BLOOD ORDERABLES Final Resu lt [facility] [address] [place] [address], from Last [address] [place] [address] A[employer] MEDICARE ADVANTAGE Care Teams Autocad Relationship Specialty Start Date End Date Erlin Fragoso MD [address] [place] [address] PCP - General Internal Medicine 07/15/24
--- OUTSIDE RECORDS SUMMARY | 2025-01-16 15:30 | XMS_ITS | Patient Health Record ---
Author Organization [facility] Address [address] [place] [address] Care Team Providers Care Counter Hop Name Role Phone BRAVO STARLA Unavailable [phone] Reason For Referral No Information Plan Of Treatment No Information Insurance Providers Payer Name Payer Address Payer Phone Subscriber Number Group Number Insured Name Patient Relationship to Insured Coverage Start Date Coverage End Date AETNA MEDICARE [address] [place] [address] XU ENGLE Self - patient is the insured Medical (General) History Surgical History Surgery Date(Month/Year) Colonoscopy 12/2019 Parathyroidectomy (right and left inferi or glands) 08/2020
--- OUTSIDE RECORDS SUMMARY | 2025-01-16 15:30 | XMS_ITS | Encounter Summary ---
Author Organization [facility] Address [address] [place] [address] Care Team Providers Care Wool Spotter Name Role Phone Jorge Worley DO Unavailable [phone] Erlin Fragoso MD Primary Care Provider [phone] Jose Nicolas MD Unavailable [phone] Encounter Details Date Type Department Care Team (Late st Contact Info) Description 07/16/2023 Scanned Document [facility] [address] [place] [address] Adonay Rodriguez MD [address] [facility] [address] [place] [address] Social History Tobacco Use Types Packs/Day Years [...] on filedocumented in this encounter Care Teams Wool Spotter Relationship Specialty Start Date End Date Erlin Fragoso MD [address] [place] [address] PCP - General Internal Medicine 08/07/22 Jorge Worley DO [address] [place] [address] Cardiovascular Disease 08/07/22 Jose Nicolas MD [address] [place] [address] Surgery, Orthopedic 08/07/22 documented as of this encounter
--- OUTSIDE RECORDS SUMMARY | 2025-01-16 15:30 | XMS_ITS | Encounter Summary ---
Author Organization [facility] Address [address] [place] [address] Care Team Providers Care Hand Flatwork Finisher Name Role Phone Jorge Worley DO Unavailable [phone] Erlin Fragoso MD Primary Care Provider [phone] Jose Nicolas MD Unavailable [phone] Encounter Details Date Type Department Care Team (Late st Contact Info) Description 09/23/2023 Scanned Document [facility] [address] [phone] Amari Ayers MD [address] [place] [address] Social History Tobacco Use Types Packs/Day Years [...] on filedocumented in this encounter Care Teams Hand Flatwork Finisher Relationship Specialty Start Date End Date Erlin Fragoso MD [address] [place] [address] PCP - General Internal Medicine 08/07/22 Jorge Worley DO [address] [place] [address] Cardiovascular Disease 08/07/22 Jose Nicolas MD [address] [place] [address] Surgery, Orthopedic 08/07/22 documented as of this encounter
--- OUTSIDE RECORDS SUMMARY | 2025-01-16 15:30 | XMS_ITS ---
Author Organization 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 [address] [facility] [address] [place] [address] 06/07/2024 STARLA BRAVO Plan Of Treatment No Information Progress Notes * BRAEDENTOVACHETOB: 0 (74 yo F)Acc No.[id number]:06/07/2024 Progress Note Patient:?XU DERAS Provider:?STARLA BRAVO MD :1950???Age:74 Y???Sex:Female D ate:06/07/2024 Address:[address] [place] [address] 3, [id number] Subjective: * Chief Complaints: * ???1. 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 * Medical History:? Objective: * Vitals:? Assessment: Plan: * Treatment: * Images: Billing Information: * Visit Code:? * Procedure Codes:? * Electronic signature of STARLA BRAVO MD on 01/16/2025 at 03:30 PM EDT Sign off status: Pending * Provider:?STARLA BRAVO MD Date:?2023 Generated for Aparnai dayday/Lianna/eTransmitting on:?01/16/2025 03:30 PM EDT
--- OUTSIDE RECORDS SUMMARY | 2025-01-16 15:30 | XMS_ITS | Encounter Summary ---
Author Organization [facility] Address [address] [place] [address] Care Team Providers Care Solid Waste Landfill Technician Name Role Phone Jorge Worley DO Unavailable [phone] Erlin Fragoso MD Primary Care Provider [phone] Jose Nicolas MD Unavailable [phone] Encounter Details Date Type Department Care Team (Late st Contact Info) Description 09/23/2023 Scanned Document [facility] [address] [phone] Amari Ayers MD [address] [place] [address] Social History Tobacco Use Types Packs/Day Years [...] on filedocumented in this encounter Care Teams Solid Waste Landfill Technician Relationship Specialty Start Date End Date Erlin Fragoso MD [address] [place] [address] PCP - General Internal Medicine 08/07/22 Jorge Worley DO [address] [place] [address] Cardiovascular Disease 08/07/22 Jose Nicolas MD [address] [place] [address] Surgery, Orthopedic 08/07/22 documented as of this encounter
--- OUTSIDE RECORDS SUMMARY | 2025-01-16 15:30 | XMS_ITS | Clinical Summary ---
Author Organization [facility] Address [address] [place] [address] Care Team Providers Care Director Of Music Therapy Name Role Phone Unavailable Primary Care Provider [...] this topic RD [address] [place] [id number]
--- OUTSIDE RECORDS SUMMARY | 2025-01-16 15:30 | XMS_ITS | Encounter Summary ---
Author Organization [facility] Address [address] [place] [address] Care Team Providers Care Technical Services Consultant Name Role Phone Jorge Worley DO Unavailable [phone] Erlin Fragoso MD Primary Care Provider [phone] Jose Nicolas MD Unavailable [phone] Encounter Details Date Type Department Care Team (Late st Contact Info) Description 09/18/2023 Scanned Document [facility] [address] [place] [phone] Amari Ayers MD [address] [place] [address] [address] [place] [address] Social History Tobacco Use Types Packs/Day Years [...] on filedocumented in this encounter Care Teams Technical Services Consultant Relationship Specialty Start Date End Date Erlin Fragoso MD [address] [place] [address] PCP - General Internal Medicine 08/07/22 Jorge Worley DO [address] [place] [address] Cardiovascular Disease 08/07/22 Jose Nicolas MD [address] [place] [address] Surgery, Orthopedic 08/07/22 documented as of this encounter
--- OUTSIDE RECORDS SUMMARY | 2025-01-16 15:30 | XMS_ITS | Clinical Summary ---
Author Organization [facility] Address [address] [place] [address] Care Team Providers Care Ship'S Carpenter Name Role Phone Jorge Worley DO Unavailable [phone] Erlin Fragoso MD Primary Care Provider [phone] Jose Nicolas MD Unavailable [phone] Allergies Active Allergy Reactions Criticality Noted [...] mouth every morning. 04/21/2022 Active glucose blood ([employer] Ultra) test strip Inject 1 each under [...] 2:15 PM EDT [facility] [address] [phone] Adonay Rodriguez MD Spondylosis of lumbar region without myelopathy or radiculopathy (Primary Dx) 11/15/2024 11:15 AM EDT Ancillary Procedure Orth[facility] [address] [phone] 11/15/2024 10:45 AM EDT Office Visit [facility] [address] [address] Siva Cheatham MD Pain in left ankle [...] this topic Medical Devices Implanted Type Area Practice Business Asst Device Identifier Shelf Expiration Date Model / Serial / Lot 6191-1-001 Cement Bone Smpx P Radopq Fd Sterl - [id number] Implanted:Qty : 1 on 09/05/2022 by Jose Nicolas MD at [facility] Cement Right: Knee [employer] - DIV STR [id number] 02/27/2025 6191- / / [id number] Cement Bone Smpx P Radopq Fd Sterl - [id number] Implanted:Qty : 1 on 09/05/2022 by Jose Nicolas MD at [facility] Cement Right: Knee [employer] - DIV STR [id number] 02/27/2025 6191- / / [id number] Cement Bone Smpx P Radopq Fd Sterl - [id number] Implanted:Qty : 1 on 09/05/2022 by Jose Nicolas MD at [facility] Cement Right: Knee [employer] - DIV STR [id number] 02/27/2025 6191- / / [id number] Cement Bone Smpx P Radopq Fd Sterl - [id number] Implanted:Qty : 1 on 09/05/2022 by Jose Nicolas MD at [facility] Cement Right: Knee [employer] - DIV STR [id number] 02/27/2025 6191- / / [id number] Component Femoral 5+ Knee Cndrl Cement Cnstrn Persona Cocr - [id number] Implanted:Qty : 1 on 09/05/2022 by Jose Nicolas MD at [facility] Joint Prosthesis Right: Knee [employer] [id number] 07/01/2032 [id number] / / [id number] Component Tibial Persona C Knee Right Npor Revision Fixation - [id number] Implanted:Qty : 1 on 09/05/2022 by Jose Nicolas MD at [facility] Joint Prosthesis Right: Knee [employer] [id number] 07/07/2032 [id number] / / [id number] Surface Articular 12mm Persona 3-5 Cd Knee Right Vivacit-E - [id number] Implanted:Qty : 1 on 09/05/2022 by Jose Nicolas MD at [facility] Joint Prosthesis Right: Knee [employer] [id number] 06/10/2026 [id number] / / [id number] Restrictor Cement 25mm Owens 16-21mm Hip Fem Plug Sterl - [id number] Implanted:Qty : 1 on 09/05/2022 by Jose Nicolas MD at [facility] Joint Prosthesis Right: Knee [employer] - DIV S [id number] 01/06/2032 [id number] / / [id number] 5549-A-130 Augment Tibial Trthln C Cone Knee Tritanium Smtr Sterl Lf - [id number] Implanted:Qty : 1 on 09/05/2022 by Jose Nicolas MD at [facility] Joint Prosthesis Right: Knee [employer] - DIV STR [id number] 02/16/2027 5549-A-130 / / [id number] Augment Femoral 5mm Persona 5 5+ Knee Dist Sterl Lf - [id number] Implanted:Qty : 1 on 09/05/2022 by Jose Nicolas MD at [facility] Joint Prosthesis Right: Knee [employer] [id number] 06/03/2032 [id number] / / [id number] Stem Tibial 135+ Mm 18mm Persona Straight Knee Spline - [id number] Implanted:Qty : 1 on 09/05/2022 by Jose Nicolas MD at [facility] Joint Prosthesis Right: Knee [employer] [id number] 07/04/2032 [id number] / / [id number] Stem Extension 30+ Mm 14mm Persona Taper Knee Tibia - [id number] Implanted:Qty : 1 on 09/05/2022 by Jose Nicolas MD at [facility] Joint Prosthesis Right: Knee [employer] [id number] 07/20/2032 [id number] / / [id number] Procedures Procedure Name Priority Date/Time Associated Diagnosis [...] 3+ views-Left (11/15/2024 11:21 AM EDT) Narrative [facility] - 11/15/2024 11:21 AM EDT [facility] images reviewed by [facility]opedic provider. ??Any findings are documented within ambulatory encounter note on date of service. Result [facility] Siva Cheatham MD [facility] ORDERA BLES Final Result Performing Organization Address [facility] Co de Phone Number OA * XR Ankle 2 views-Left (11/15/2024 11:21 AM EDT) Narrative [facility] - 11/15/2024 11:21 AM EDT [facility] and images reviewed by orthopedic provider. ??Any findings are documented within ambulatory encounter note on date of service. Siva Cheatham MD [facility] ORDERA BLES Final Result Performing Organization Address [facility]/ZIP Co de Phone Number OA * (ABNORMAL) Basic Metabolic Panel (Early AM) (09/06/2022 6:43 AM EST) Glucose 118(H) 65 - 99 mg/dL 09/06/2022 8:18 AM [facility] Comment:Fasting: <100 mg/dL, Non-Fasting: <200 mg/dL (ADA 2005) Blood Urea Nitrogen (BUN) 20 8 - 21 mg/dL 09/06/2022 8:18 AM [facility] Creatinine 0.7 0.4 - 1.1 mg/dL 09/06/2022 8:18 AM [facility] eGFR >60 >59 09/06/2022 8:18 AM [facility] Comment:MDRD in mL/min/1.73 sq meters. Sodium 142 136 - 145 mmol/L 09/06/2022 8:18 AM [facility] Potassium 3.9 3.4 - 5.3 mmol/L 09/06/2022 8:18 AM [facility] Chloride 104 98 - 107 mmol/L 09/06/2022 8:18 AM [facility] CO2 28 22 - 33 mmol/L 09/06/2022 8:18 AM [facility] Anion Gap 10 7 - 17 09/06/2022 8:18 AM [facility] Calcium 8.9 8.7 - 10.5 mg/dL 09/06/2022 8:18 AM [facility] BUN/Creatinine Ratio 29(H) 10.0 - 25.0 Ratio 09/06/2022 8:18 AM [facility] Blood specimen (specimen) (Plasma/Serum) 09/06/2022 6:43 AM EST 09/06/2022 7:43 AM EST us [facility] BLOOD ORDERABLES Final Result HOSPITAL LAB See Below [facility] [address] [place] [address] * (ABNORMAL) Hemoglobin A1c with Estimated Average Glucose (08/18/2022 11:15 AM EST) Hemoglobin A1C 7.2(H) <5.7 % 08/18/2022 8:55 PM [facility] Comment: A1c% ? Interpretation 5.7 - 6.0 ?Increase risk of diabetes 6.1 - 6.4 ?Higher risk of diabetes > or = 6.5 ?? Consistent with diabetes Diabetes Care, 33(Supp 1):S1-S61, 2010 Estimated Average Glucose 160 mg/dL 08/18/2022 8:55 PM EST [facility] Blood specimen (specimen) Blood specimen / Unknown 08/18/2022 11:15 AM EST 08/18/2022 8:17 PM EST us Zayda Mirza [employer] TRUCK DRIVER LAB BLOOD ORDERABLES Final R esult HOSPITAL LAB See Below [address] [address] from Last 3 Months or Most Recently Relevant to Health Maintenance Insurance [address] [place] [address] [facility] MEDICARE [address] [place] [address] [facility] [address] [place] [address] [employer] MEDICARE Advance Directives Documents on File Type Date Recorded Patient Order Administrator Expl anation Advance Directive-Scan 07/14/2023 CHECK OUT * Full Code (Latest Code Status on File) Date Activated Date Inactivated Comments 09/05/2022 5:30 PM * Full Code Date Activated Date Inactivated Comments 09/05/2022 8:01 AM 09/05/2022 5:30 PM Care Teams Ship'S Carpenter Relationship Specialty Start Date End Date Erlin Fragoso MD [address] [place] [address] PCP - General Internal Medicine 08/07/22 Jorge Worley DO [address] [place] [address] Cardiovascular Disease 08/07/22 Jose Nicolas MD [address] [address] Surgery, Orthopedic 08/07/22
--- OUTSIDE RECORDS SUMMARY | 2025-01-16 15:30 | XMS_ITS | Encounter Summary ---
Author Organization [facility] Address [address] [place] [address] Care Team Providers Care Manager Of Product Name Role Phone Jorge Worley DO Unavailable [phone] Erlin Fragoso MD Primary Care Provider [phone] Jose Nicolas MD Unavailable [phone] Encounter Details Date Type Department Care Team (Late st Contact Info) Description 08/28/2023 Scanned Document [facility] [address] [place] [phone] Amari Ayers MD [address] [place] [address] [address] [place] [address] Social History Tobacco Use Types Packs/Day Years [...] on filedocumented in this encounter Care Teams Manager Of Product Relationship Specialty Start Date End Date Erlin Fragoso MD [address] [place] [address] PCP - General Internal Medicine 08/07/22 Jorge Worley DO [address] [place] [address] Cardiovascular Disease 08/07/22 Jose Nicolas MD [address] [place] [address] Surgery, Orthopedic 08/07/22 documented as of this encounter
== END 2025-01-16 15:26 | disposition home or self-care (01) ==
LOC: HO.XRAY 15:25
PROVIDERS: PCP Internal Medicine; Visit Provider Internal Medicine
DX: R94.8 Abnormal results of function studies of other organs and systems (principal)
CPT/HCPCS: 72100

== ENCOUNTER → 2025-01-16 15:30 | Outpatient (BNV) | payer MEDICARE, SELFPAY | PROVIDERS: PCP Internal Medicine; Visit Provider Radiology Diagnostic Radiology | DX: M51.369 Other intervertebral disc degeneration, lumbar region without mention of lumbar back pain or lower extremity pain (principal) | CPT/HCPCS: 72100 ==

== ENCOUNTER 2025-02-10 08:12 | Outpatient (AMB) | payer MEDICARE, SELFPAY ==
--- NOTE | 2025-02-10 08:28 | A.OFFVIS_ITS ---
Vital Signs 02/10/25 08:32 Height 5 ft Weight 116 lb 8 oz BMI 22.7 BP 112/60 Blood Pressure Location Lt brachial Position Sitting Pulse 66 Pulse Oximetry (%) 100 Oxygen Delivery Method Room Air Intake Visit Reasons: 6 week f/u Intake Note: Patient presents for Paget Disease follow up. 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 Interval History: Patient last seen 12/26/2024 with me. At that time she was establishing care for the management of her Paget's disease. Diagnosed several years ago and there was concern of relapse. Labs including bone scan were unremarkable Rheumatologic History: Patient was previously diagnosed with Paget's disease about 30 years ago. Was previously on Fosomax but stopped about 10 years. 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 Dyslipidemia Diabetes type 2, uncontrolled Osteoporosis Primary hyperparathyroidism DVT (deep venous thrombosis) Iron deficiency anemia Surgical History History of total left hip replacement Hx of parathyroidectomy Hx of repair of left rotator cuff History of partial hysterectomy Hx of gastric bypass Hx of cholecystectomy Family History Father Lung cancer Mother Alzheimer's dementia Social History Household Members: Significant Other Housing: Condominium Do you presently have visiting nurse or other home services: No Alcohol intake: never Patient Tobacco Use Status: Never used Tobacco service: No Current occupational status: retired Review of Systems Const Details: Review of Systems Constitutional: Denies fever, chills, weight loss ENT: Denies vision changes, eye pain or eye redness, dental caries, dry mouth GI: Denies nausea, vomiting, diarrhea, abdominal pain, change in BM Pulm: Denies SOB, SPENCE, hemoptysis, wheezing Cards: Denies chest pain, palpitations Skin: Denies Raynaud's, rash, nail changes, photosensitivity, SAP BUSINESS INTELLIGENCE CONSULTANT: Denies headaches, weakness, paresthesias, recurrent falls MSK: as per HPI All other systems reviewed and are unremarkable except noted above Physical Exam Vital Signs: Last Vital Signs Pulse 66 02/10/25 08:32 BP 112/60 02/10/25 08:32 Pulse Ox 100 02/10/25 08:32 Oxygen Delivery Method Room Air 02/10/25 08:32 BMI result Body Mass Index 22.7 Vital signs reviewed Physical Examination CONSTITUITIONAL Patient alert and cooperative. Well appearing and in no apparent painful distress HEENT Conjunctiva and sclera clear. ?Pupils equal round and reactive to light. ?No lymphadenopathy. ? ?frontal bossing CHEST/RESPIRATORY SYSTEM Normal respiratory effort and able to speak in complete sentences. ?Clear to auscultation bilaterally. ?No crackles, rales, rhonchi, wheezes heard. CARDIAC SYSTEM Regular rate and rhythm. ?S1 and S2 heard no murmurs. ?Radial pulses intact bilaterally MSK Hands: ?Able to make a fist. No synovitis noted to the MCPs, PIPs or DIPs. ?No tenderness to palpation of these joints. Herbeden's and Bouchards nodes Wrists: ?Full range of motion at the wrists without pain. ?No tenderness to palpation or synovitis noted to the wrists. Elbows: Full range of motion without pain. No tenderness, weakness, swelling, increased warmth or erythema. Shoulders: No tenderness, weakness, swelling, increased warmth or erythema. Knees: ?Full range of motion. ?No tenderness, swelling, increased warmth or erythema.?No effusion or crepitations Ankles: Full range of motion. ?No tenderness, swelling, increased warmth or erythema.? Feet: ?Negative squeeze test. ?No tenderness to palpation or swelling of the MTPs. Tender points:?No tenderness to palpation of the bilateral trapezius, supraspinatus, greater trochanters, anterior costochondral junctions, bilateral gluteal areas, bilateral suboccipital muscle insertions SKIN Skin intact without rashes. Results Reviewed Results Reviewed: Laboratory Tests 12/26/24 10:20 WBC 7.5 RBC 4.81 Hgb 13.2 Hct 40.1 Plt Count 235 ESR 5 Sodium 142 Potassium 3.7 Chloride 107 Carbon Dioxide 28 BUN 27 H Creatinine 0.75 Random Glucose 85 Calcium 9.3 Total Bilirubin 1.9 H AST 35 H ALT 22 Alkaline Phosphatase 129 H Alk Phos Bone Specific 20.2 C-Reactive Protein 0.13 PEP Interpretation hypogammaglobulinemia NM Bone Scan 12/2024 FINDINGS: There are photopenic defects at the right hip and right knee consistent with joint arthroplasties. Linear increased uptake in the midshaft of the right femur is likely secondary to the presence of prostheses at the knee and hip. There is a bandlike focus of increased activity at approximately the L4 vertebral level, which could be secondary to a compression fracture. Mild increased uptake in the thoracolumbar spine is likely degenerative in nature. There is mild increased uptake at the ankles, left knee and bilateral shoulders which is likely degenerative in nature. The remainder of the visualized osseous structures demonstrate a normal distribution of activity. There is normal bilateral renal uptake. IMPRESSION: 1. Bandlike focus of increased uptake at approximately the L4 vertebral level which could be due to a compression fracture. Plain film correlation is suggested. 2. Additional degenerative uptake as described. XR L spine 12/2024 FINDINGS: AP, lateral, and coned down views of the lumbar spine are submitted. Osseous mineralization is normal. Five nonrib-bearing lumbar vertebral bodies are identified, maintaining normal height without evidence of fracture or spondylolisthesis. There is mild scoliosis. There is severe degenerative disc disease with disc space narrowing and osteophyte formation. This is most prominent at the L3-4 level which likely accounts for the increased uptake on bone scan. 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 There is calcification of the abdominal aorta. A portion of the right hip prosthesis is noted. IMPRESSION: Mild scoliosis. Severe degenerative disc disease, likely accounting for the increased uptake in the lumbar spine seen on bone scan. Assessment & Plan Assessment & Plan (1) Paget disease of bone: Code(s): M88.9 - Osteitis deformans of unspecified bone Category: Medical Plan: #Paget's disease Patient is a 74-year-old female with a history of Paget's disease here today for follow up. Patient diagnosed with Paget's today's about 30 years ago and was on oral bisphosphonates. Has been off treatment for the past 10 years now concern for worsening disease. Bone scan and will not alkaline phosphatase all normal Plan - follow up PRN Plan I spent 20 minutes reviewing the record and labs, taking a history, examining the patient, discussing the treatment plan and documenting in the medical record Coding Level of Care Code Est Pt Level 3 (65195) Diagnoses Paget disease of bone M88.9
[2025-02-10 08:32] VITALS: BP 112/60; PULSE 66; O2SAT 100; BMI 22.7
== END 2025-02-10 08:58 | disposition home or self-care (01) ==
LOC: HO.RHE 08:13
PROVIDERS: PCP Internal Medicine; Visit Provider Student in an Organized Health Care Education/Training Program
DX: M88.9 Osteitis deformans of unspecified bone (principal)
CPT/HCPCS: 99213

== ENCOUNTER → 2025-02-10 08:12 | Outpatient (BNVA) | payer MEDICARE, SELFPAY | PROVIDERS: PCP Internal Medicine; Visit Provider Student in an Organized Health Care Education/Training Program | DX: I10 Essential (primary) hypertension (principal); M88.9 Osteitis deformans of unspecified bone; M13.0 Polyarthritis, unspecified; E78.5 Hyperlipidemia, unspecified; E11.9 Type 2 diabetes mellitus without complications | CPT/HCPCS: 99212 ==

== ENCOUNTER 2025-02-20 11:43 | Outpatient (AMB) | payer MEDICARE, SELFPAY ==
--- NOTE | 2025-02-20 11:43 | A.OFFVIS_ITS ---
Intake Visit Reasons: 6m/US/PVR Intake Note: Patient presents today for follow up on: angiomylipoma, recurrent uti, renal cyst Urology Medication:estradiol Antibiotic Allergy:none Blood Thinner:aspirin PVR: 0ml's Chlorine Cells Operator Required: No Accompanied by: Self / Same As Patient Allergies latex (LATEX) Allergy (Unknown, Verified 02/20/25 15:07) RASH NARCOTICS Adverse Reaction (Intermediate, Uncoded 02/20/25 15:07) NAUSEA AND VOMITTING Medication List - Last Reconciled 02/20/25 by NILAY Fierro-TEMITOPE aspirin (Adult Low Dose Aspirin) 81 mg PO DAILY atorvastatin 10 mg PO DAILY blood sugar diagnostic As directed calcium carbonate (Calcium 600) 600 mg PO BID 30 days estradiol 10 mcg vaginal 2XW 28 days famotidine 20 mg PO BID hydrochlorothiazide 12.5 mg PO DAILY lancets As directed lancets (OneTouch Delica Plus Lancet) As directed sulfamethoxazole-trimethoprim 800-160 mg (Bactrim DS) 1 tab PO BID 7 days tirzepatide (Mounjaro) 5 mg subcut QWEEK valsartan 80 mg PO DAILY [vitamin b12 250 mcg PO DAILY] HPI Comments Details: Alexa is a pleasant 74 year old female patient of Dr. Fragoso. 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 She presents to the office today for follow-up of her genitourinary urinary symptoms of menopause, angiomyolipoma and recurring UTIs. In discussion with the patient today she reports to be doing and feeling well. She denies having had any bothersome urinary issues or concerns. She denies having had any UTIs and or UTI like symptoms. Recent renal imaging results were reviewed with the patient today 02/22 unchanged angiolipoma is measuring 1.1 cm and 0.5cm on the in the right kidney in left kidney with unchanged angiolipoma is measuring 0.5 cm and 0.6 cm. No collecting system dilatation of either kidney, no nephrolithiasis, and normal color Doppler bilaterally per radiology report. She discusses her daughters recent cochlear implant. She also discuss her daughter's renal transplant and how grateful she is at things have been going well for her daughter. In office urinalysis results reviewed with the patient today. PVR 0 mL. She does discuss her upcoming travel in his requesting antibiotic as she is worried she might experience a urinary tract infection. When asked she denies urinary urgency, urinary frequency, incontinence, nocturia, hematuria, dysuria, foul smelling urine, changes to urinary stream, flank pain, fever, and or chill s. She is happy with her current voiding parameters. She reports compliance with Vagifem tablets as prescribed. She otherwise offers no issues or concerns at this time. 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 Dyslipidemia Diabetes type 2, uncontrolled Osteoporosis Primary hyperparathyroidism DVT (deep venous thrombosis) Iron deficiency anemia Surgical History History of total left hip replacement Hx of parathyroidectomy Hx of repair of left rotator cuff History of partial hysterectomy Hx of gastric bypass Hx of cholecystectomy Family History Father Lung cancer Mother Alzheimer's dementia Social History Household Members: Significant Other Housing: Condominium Do you presently have visiting nurse or other home services: No Alcohol intake: never Patient Tobacco Use Status: Never used Tobacco service: No Current occupational status: retired Review of Systems Const Reports as per [facility] Eyes Reports no additional complaints ENT Reports no additional complaints Card Reports as per HPI Resp Reports no additional complaints GI Reports no additional complaints Reports as per HPI Musc Reports as per HPI Neuro Reports no additional complaints Psych Reports no additional complaints Endo Reports as per HPI Physical Exam Const General: cooperative, healthy appearing, comfortable, no acute distress, well developed, alert and awake Orientation/consciousness: patient oriented x3 Limitations: no limitations HEENT Head: Yes normal to inspection, Yes normocephalic and Yes atraumatic Ears: hearing grossly normal bilaterally Eyes General: appearance normal, both eyes and all related structures Neck Neck: Yes normal visual inspection and Yes trachea midline Chest Chest palpation & inspection: normal inspection of the chest Resp Effort & Inspection: normal respiratory effort and able to speak in complete sentences Cardio Rate: regular rate GI Inspection: Yes normal to inspection General: Yes no CVA tenderness Back/Spine/Pelvis Back: no CVA tenderness Skin General skin exam: no rashes or lesions noted Neuro General: patient oriented x3 Extrem General: Yes normal to inspection Psych Appearance: grossly normal and well kempt Mental Status: mental status grossly normal Speech and movement: Normal speech and movement present and Clear speech present Affect: normal affect Attitude: cooperative Thought process: Normal thought process present Thought content: Normal thought content present Insight: Fair insight present (Psych) Judgement: Fair judgement present (Psych) Office Procedures Post Void Residual Post Residual Void Post Void Residual (PVR): 0 [id number]-[id number] Void Residual by ultrasound Results AMB Urinalysis, Automated UA Leukoctes 15 Ben/uL Last Edit by Leidy Manzo [facility] on 02/20/25 12:04 UA Nitrite Last Edit by [facility] Center[facility] Manzo [facility] on 02/20/25 12:04 UA Urobilinogen 0.2 mg/dL Last Edit by Leidy Manzo [facility] on 02/20/25 12:0 4 UA Protein 0 mg/dL Last Edit by Leidy Manzo [facility] on 02/20/25 12:04 UA pH 6.0 Last Edit by Leidy Manzo [facility] on 02/20/25 12:04 UA Blood 0 Feliciano/uL Last Edit by Leidy Manzo [facility] on 02/20/25 12:04 UA Specific [place] 1.010 Last Edit by Leidy Manzo [facility] on 02/20/25 12: 04 UA Ketone Last Edit by Leidy Manzo [facility] on 02/20/25 12:04 UA Bilirubin 0 mg/dL Last Edit by [facility] Manzo [facility] on 02/20/25 12:04 UA Glucose 0 mg/dL Last Edit by Leidy Manzo [facility] on 02/20/25 12:04 Results Reviewed Results Reviewed: Laboratory Last Values Urine pH (Auto) 6.0 02/20/25 11:53 Specific [place] (Auto) 1.010 02/20/25 11:53 Urine Protein (Auto) 0 mg/dL 02/20/25 11:53 Glucose (UA)(Auto) 0 mg/dL 02/20/25 11:53 Urine Blood (Auto) 0 Feliciano/uL 02/20/25 11:53 Urine Bilirubin (Auto) 0 mg/dL 02/20/25 11:53 Urine Urobilinogen (Auto) 0.2 mg/dL 02/20/25 11:53 Leukocyte Esterase (Auto) 15 Ben/uL 02/20/25 11:53 Date of Service: 12/30/24 Procedure(s): US renal BI Findings: Right kidney normal size and echotexture, 9.3 cm length. Unchanged of the circumscribed likely incidental angiomyolipomas measuring 1.1 x 0.9 x 0.9 cm and 0.5 x 0.4 x 0.3 cm. Left kidney normal size and echotexture, 8.9 cm length. Unchanged are the possible angiomyolipomas measuring 0.6 x 0.5 x 0.5 cm and 0.5 x 0.5 x 0.5 cm. No collecting system dilatation of either kidney. Normal color Doppler. IMPRESSION: 1. 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 No acute findings. Assessment & Plan Assessment & Plan (1) Renal cyst: Code(s): N28.1 - Cyst of kidney, acquired Category: Medical Plan In office urinalysis results with the patient today; as noted above. PVR 0 mL. Recent renal ultrasound results with the patient today; as noted above. She currently denies any bothersome urinary issues or concerns. She reports be happy with current voiding parameters. Prescription provided for potential UTI as patient has upcoming travel plans. Continue Vagifem. Will continue with surveillance monitoring. Follow-up in 6 months with imaging to be completed prior; or sooner with any issues, concerns, and or questions. Orders: Orders AMB Urinalysis Automated Today Z13.9 - Encounter for screening, unspecified AMB Post Void Residual by ultrasound Today N39.0 - Urinary tract infection, site not specified Medications: New sulfamethoxazole-trimethoprim 800-160 mg (Bactrim DS) 1 tab PO BID 14 tabs 0RF 7 days N39.0 - Urinary tract infection, site not specified Patient Instructions: The patient had an opportunity to ask questions regarding the treatment plan. All questions were answered. Physical exam, labs, and imaging were discussed and reviewed in detail. As well as risks, benefits, and discussion of treatment choices. No major barriers to understanding were identified. The patient expressed understanding and agreement with the above treatment plan. The patient was made aware they should contact our office by phone for worsening of their current condition, the appearance of new symptoms, or with any questions or concerns. Compliance is encouraged with any medications and follow up testing that is ordered. It is a privilege to be allowed the opportunity to p articipate in? your urological care.? Again, if you have any questions or concerns If you have any questions or concerns please do not hesitate to contact me. The office is [phone]. This note is constructed using voice recognition software. While every effort has been made to ensure accuracy revenue liaison errors may have been included. Yours sincerely, BOY Fierro Coding Level of Care Code Est Pt Level 4 (50578) Complex EM visit Add On G2211 Diagnoses Renal cyst N28.1 CPT Codes Post Residual Void - PVR CPT Code: 91757-Gouz Void Residual by ultrasound ([id number])
--- OUTSIDE RECORDS SUMMARY | 2025-02-20 13:21 | XMS_ITS | Encounter Summary ---
Author Organization Formerly [facility] Address [address] [place] [address] Care Team Providers Care Reheat Furnace Operator Name Role Phone PatricatanmayJorge DO Unavailable [phone] Erlin Fragoso MD Primary Care Provider [phone] Jose Nicolas MD Unavailable [phone] Encounter Details Date Type Department Care Team ([place] [facility] st Contact Info) Description 01/11/2024 Scanned Document [facility] [address] [id number] Adonay Rodriguez MD [address] [place] [id number] Social History Tobacco Use Types Packs/Day Years [...] on filedocumented in this encounter Care Teams Reheat Furnace Operator Relationship Specialty Start Date End Date Erlin Fragoso MD [address] [place] [address] PCP - General Internal Medicine 08/07/22 Jorge Worley DO [address] [place] [id number] Cardiovascular Disease 08/07/22 Jose Nicolas MD [address] [place] [id number] Surgery, Orthopedic 08/07/22 documented as of this encounter
== END 2025-02-20 12:20 | disposition home or self-care (01) ==
LOC: HO.HUSH 11:43
PROVIDERS: PCP Internal Medicine; Visit Provider Nurse Practitioner Family
DX: Z13.9 Encounter for screening, unspecified (principal); N28.1 Cyst of kidney, acquired
CPT/HCPCS: 99214; G2211

== ENCOUNTER → 2025-02-20 11:43 | Outpatient (BNVA) | payer MEDICARE, SELFPAY | PROVIDERS: PCP Internal Medicine; Visit Provider Nurse Practitioner Family | DX: N28.1 Cyst of kidney, acquired (principal); N39.0 Urinary tract infection, site not specified; D17.71 Benign lipomatous neoplasm of kidney | CPT/HCPCS: 51798; 81003; 99212 ==